=== PATIENT | male | born 1960 | race Caucasian/White ===

== ENCOUNTER 2016-06-09 08:22 | Emergency (ER) | payer OTHER ==
[~2016-06-09] VITALS: Ht 172.7 cm; Wt 111.0 kg
[~2016-06-09 08:22] MED LIST: CIPR500T4 PO; FOLI-49 PO; FURO40TA4 PO; LACT20SO12 PO; ONDA4TAB95 PO; OXYC-279 PO; POTA-57 PO; SPIR25TA76 PO; THIA100T56 PO
[2016-06-09 08:25] VITALS: Ht 172.7 cm; Wt 111.0 kg
--- NOTE | 2016-06-09 09:57 | RADRPT ---
PROCEDURE: XR Right Hip. CLINICAL INDICATION: Right hip pain after fall TECHNIQUE: 2 views of the right hip were performed. COMPARISON: None. FINDINGS: There is normal mineralization and alignment. No fracture or osseous lesion is identified. Joint spa emmy are well maintained. There is no evidence of osteophyte erosion. The soft tissues are unremarka ble. IMPRESSION: 1. Unremarkable right hip x-rays series. RPTAT: KK .August Keane MD, MD Date Time Electronically viewed and signed by .August Keane MD, on 06/09/2016 09:56 .B/
--- NOTE | 2016-06-09 09:58 | RADRPT ---
AMENDMENT: 06/09/2016 9:59:06 AM August Keane M.D Correction: Impression should read: 1. No evidence of acute fracture dislocation. 2. 2 mm foreign body in the distal forearm. PROCEDURE: Forearm radiograph series. CLINICAL INDICATION: Right forearm pain after fall TECHNIQUE: AP and lateral views of the right forearm were obtained. COMPARISON: No prior studies are available for comparison. FINDINGS: There is normal mineralization and alignment of the bones of the right forearm. There is no evidenc e of acute fracture or dislocation. Suboptimally visualized joints appear within normal limits. Th ere is a 2 mm foreign body in the shallow subcutaneous tissues on the radial aspect of the distal fo rearm on the volar surface. IMPRESSION: 1. Unremarkable right forearm x-ray series. RPTAT: KK .August Keane MD, Date Time Electronically viewed and signed by .August Keane MD, MD on 06/09/2016 09:59 .B/
--- NOTE | 2016-06-09 09:58 | RADRPT ---
PROCEDURE: XR Humerus. CLINICAL INDICATION: Right humerus pain after fall TECHNIQUE: 2 views of the right humerus were obtained. COMPARISON: No prior studies are available for comparison. FINDINGS: There is normal mineralization and alignment of the bones of the right humerus. There is no evidenc e of acute fracture or dislocation. The partially visualized joints appear grossly unremarkable. T he soft tissues are within normal limits. IMPRESSION: 1. Unremarkable right humerus series. RPTAT: KK .August Keane MD, MD Date Time Electronically viewed and signed by .August Keane MD, on 06/09/2016 09:58 .B/
--- NOTE | 2016-06-09 10:22 | RADRPT ---
PROCEDURE: XR Right Shoulder. CLINICAL INDICATION: Right shoulder pain. TECHNIQUE: Three views. Frontal internal rotation, frontal external rotation, and scapular Y-view . COMPARISON: No prior study is available for comparison. FINDINGS: There is no fracture or dislocation. The soft tissues are normal. Articular surfaces are intact. There is no lytic or blastic lesion. There is no radiopaque foreign body. IMPRESSION: 1. Normal images of the right shoulder. RPTAT: QQ .Carter Arenas MD, MD Date Time Electronically viewed and signed by .Carter Arenas MD, MD on 06/09/2016 10:22 .R/
--- NOTE | 2016-06-09 11:02 | ERD ---
ER Documentation Chief Complaint Date/Time DATE: 06/09/16 TIME: 10:54 Chief Complaint RT ELBOW AND RT SHOULDER PAIN S/P SLIP AND FALL YESTERDAY HPI Patient is a 56 year old male with a history of cirrhossis, hepatitis C, thrombocytopenia presents to the ED with elbow, arm and shoulder pain after sustaining a fall yesterday afternoon. Patient states that he slipped in the rain yesterday at [employer] and landed on his shoulder and right arm and hip. He denies hitting his head, blacking out, losing consciousness. He denies headache or dizziness. He denies pain in his wrist or hand or leg. He states that he has slight tenderness in his right hip but is able to walk without difficulty. He also states that he has pain in his right shoulder and right arm. He denies significant bruising. He denies abdominal pain, nausea, vomiting or diarrhea. He denies any new symptoms regarding his chronic conditions. He has a history of taking oxycodone for his other symptoms. He denies leg pain or swelling. Denies chest pain, sob, cough or difficulty breathing. ROS All systems reviewed and are negative except as per history of present illness. Medications Home Meds Active Scripts Ciprofloxacin Hcl* (Ciprofloxacin Hcl*) 500 Mg Tablet, 500 MG PO BID for 10 Days , #14 TAB Prov:SHARIF KAPLAN MD 05/28/16 Potassium Chloride* (Klor-Con*) 20 Meq Tabsr, 20 MEQ PO DAILY for 28 Days, #30 TAB Prov:SHARIF KAPLAN MD 05/28/16 Lactulose* (Cephulac*) 20 Gm/30 Ml Soln, 20 GM PO TID for 28 Days Prov:SHARIF KAPLAN MD 05/28/16 Furosemide (Lasix) 40 Mg Tab, 40 MG PO DAILY, #90 TAB Prov:UMAIR RITTER MD 03/23/16 Oxycodone HCl/Acetaminophen (Percocet 5-325 mg Tablet) 1 Each Tablet, 1 EACH PO Q6 Y for PAIN LEVEL 6-10, #40 TAB Prov:UMAIR RITTER MD 03/23/16 Spironolactone* (Aldactone*) 25 Mg Tablet, 50 MG PO DAILY, #90 TAB Prov:UMAIR RITTER MD 03/23/16 Ondansetron Hcl* (Ondansetron Hcl*) 4 Mg Tablet, 4 MG PO Q6H Y for NAUSEA AND/ OR VOMITING, #60 TAB Prov:UMAIR RITTER MD 03/23/16 Folic Acid* (Folic Acid*) 1 Mg Tablet, 1 MG PO DAILY, #90 TAB Prov:UMAIR RITTER MD 02/11/16 Reported Medications Thiamine* (Vitamin B-1*) 100 Mg Tablet, 100 MG PO DAILY, TAB 03/21/16 Allergies Allergies: Coded Allergies: Penicillins (Verified Allergy, Unknown, 03/21/16) RASH clindamycin (Verified Allergy, Unknown, 03/21/16) Uncoded Allergies: PLATELETS (Adverse Reaction, Unknown, 05/18/16) Patient reports he requires benadryl prior to platelets transfusion due to reaction in the past (swelling of face). PMhx/Soc History of Surgery: Yes Anesthesia Reaction: No Hx Neurological Disorder: No Hx Respiratory Disorders: No Hx Cardiac Disorders: No Hx Psychiatric Problems: No Hx Miscellaneous Medical Probl: Yes (THROMBOCYTOPENIA) Hx Alcohol Use: No (NO ALCOHOL CONSUMPTION FOR A LONG TIME.) Hx Substance Use: No Hx Tobacco Use: No Physical Exam Vitals Physical Exam GENERAL: Well-developed, well-nourished male. Appears in no acute distress. HEAD: Normocephalic, atraumatic. LUNG: Clear to auscultation bilaterally. No rhonchi, wheezing, rales or coarse breath sounds. HEART: Regular rate and rhythm. No murmurs, rubs or gallops. BACK: No midline tenderness. Extremities: Equal pulses bilaterally. No peripheral clubbing, cyanosis or edema. No unilateral leg swelling. NEUROLOGIC: Alert and oriented. Moving all four extremities. 5/5 strength in all extremities. Normal speech. Steady gait. slight tenderness to right shoulder and right elbow. no scaphoid tenderness. no wrist or hand pain. no bruising seen. radial, ulnar and median nerve intact. SKIN: Normal color. Warm and dry. No rashes or lesions. Capillary refill < 2 seconds Procedures/MDM ER COURSE: I kept the patient and/or family informed of laboratory and diagnostic imaging results throughout the emergency room course. EKG, MONITORS, & DIAGNOSTIC IMAGING: [place] [address] Radiology Main Line: [phone] DIAGNOSTIC IMAGING REPORT Patient: JONO HILTON : 1960 Age: 56 Sex: M MR #: [id number] DOS: 06/09/16902 Ordering MD: LASHANDA LAUREN PA-C Location: [facility] Room/Bed: AMENDMENT: 06/09/2016 9:59:06 AM August Keane M.D Correction: Impression should read: 1. No evidence of acute fracture dislocation. 2. 2 mm foreign body in the distal forearm. PROCEDURE: Forearm radiograph series. CLINICAL INDICATION: Right forearm pain after fall TECHNIQUE: AP and lateral views of the right forearm were obtained. COMPARISON: No prior studies are available for comparison. FINDINGS: There is normal mineralization and alignment of the bones of the right forearm. There is no evidence of acute fracture or dislocation. Suboptimally visualized joints appear within normal limits. There is a 2 mm foreign body in the shallow subcutaneous tissues on the radial aspect of the distal forearm on the volar surface. IMPRESSION: 1. Unremarkable right forearm x-ray series. RPTAT: KK .August Keane MD, MD Date Time Electronically viewed and signed by .August Keane MD, MD on 2016 09:59 .B/ CC: LASHANDA LAUREN PA-C [place] [address] Radiology Main Line: [phone] DIAGNOSTIC IMAGING REPORT Patient: JONO HILTON : 1960 Age: 56 Sex: M MR #: [id number] DOS: 06/09/16902 Ordering MD: LASHANDA LAUREN PA-C Location: [facility] Room/Bed: PROCEDURE: XR Humerus. CLINICAL INDICATION: Right humerus pain after fall TECHNIQUE: 2 views of the right humerus were obtained. COMPARISON: No prior studies are available for comparison. FINDINGS: There is normal mineralization and alignment of the bones of the right humerus. There is no evidence of acute fracture or dislocation. The partially visualized joints appear grossly unremarkable. The soft tissues are within normal limits. IMPRESSION: 1. Unremarkable right humerus series. RPTAT: KK .August Keane MD, MD Date Time Electronically viewed and signed by .August Keane MD, MD on 2016 09:58 .B/ CC: LASHANDA LAUREN PA-C [place] [address] Radiology Main Line: [phone] DIAGNOSTIC IMAGING REPORT Patient: JONO HILTON : 1960 Age: 56 Sex: M MR #: [id number] DOS: 06/09/16 0901 Ordering MD: LASHANDA LAUREN PA-C Location: [facility] Room/Bed: PROCEDURE: XR Right Hip. CLINICAL INDICATION: Right hip pain after fall TECHNIQUE: 2 views of the right hip were performed. COMPARISON: None. FINDINGS: There is normal mineralization and alignment. No fracture or osseous lesion is identified. Joint spaces are well maintained. There is no evidence of osteophyte erosion. The soft tissues are unremarkable. IMPRESSION: 1. Unremarkable right hip x-rays series. RPTAT: KK .August Keane MD, MD Date Time Electronically viewed and signed by .August Keane MD, MD on 2016 09:56 .B/ CC: LASHANDA LAUREN PA-C [facility] [address] [place] [address] Radiology Main Line: [phone] DIAGNOSTIC IMAGING REPORT Patient: JONO HILTON : 1960 Age: 56 Sex: M MR #: [id number] DOS: 06/09/16 0901 Ordering MD: LASHANDA LAUREN PA-C Location: [facility] Room/Bed: PROCEDURE: XR Right Shoulder. CLINICAL INDICATION: Right shoulder pain. TECHNIQUE: Three views. Frontal internal rotation, frontal external rotation , and scapular Y-view. COMPARISON: No prior study is available for comparison. FINDINGS: There is no fracture or dislocation. The soft tissues are normal. Articular surfaces are intact. There is no lytic or blastic lesion. There is no radiopaque foreign body. IMPRESSION: 1. Normal images of the right shoulder. RPTAT: QQ .Carter Arenas MD, MD Date Time Electronically viewed and signed by .Carter Arenas MD, MD on 06/09/2016 10:22 .R/ CC: LASHANDA LAUREN PA-C PROCEDURES: Ed sling. Sling assessment: Neurovascularly intact post sling placement with good fit. MEDICAL DECISION MAKING: This is a 56-year-old male who presents with shoulder and arm pain after sustaining a fall. Vital signs were reviewed. Patient is afebrile. Patient is not hypoxic. Patient is not toxic or ill-appearing. Patient likely has muscle contusion from sustaining a fall. Low suspicion for dislocation, fracture, septic joint, compartment syndrome, osteomyelitis, cellulitis, avascular necrosis, neurological injury, vascular injury, tendon laceration. I have low suspicion for hematologic emergency as he does not have any excessive or new bruises. Low suspicion for ACS, AAA, perforated ulcer, bowel obstruction, cholecystitis, choledocholithiasis, cholangitis, pancreatitis, hepatic abscess, appendicitis, diverticulitis, nephrolithiasis, septic stone, obstructed stone. Patient does have a history of thrombocytopenia however he does not have any complaints regarding this and I do not think blood work is needed at this time as there is low suspicion for any platelet disorder emergency, HIT, ITP, TTP, thrombocytopenia. Patient does not have bleeding gums or bruising on his body. DISCHARGE: At this time, patient is stable for discharge and outpatient management with no new complaints during the ER course. Patient has pain medication at home and states that he will be taking that for his symptoms. Does not want pain medication today. Patient will be discharged home with instructions to recheck for new or worsening symptoms such as fever, nausea, weakness, LOC and to follow up with primary care in the next 1-2 days. Patient was advised to return to the ER for any new or worsening symptoms. Plan was discussed and patient and/ or family understands and agrees. Home instructions were given. Departure Diagnosis: Primary Impression: Fall with no significant injury Encounter type: initial encounter Qualified Code: W19.XXXA - Fall with no significant injury, initial encounter Condition: Stable Patient Instructions: Fall Prevention Referrals: NIHARIKA CAMACHO MD (PCP) Additional Instructions: Call your primary care doctor TOMORROW for an appointment during the next 1-2 days.See the doctor sooner or return here if your condition worsens before your appointment time. LASHANDA LAUREN PA-C Jun 09, 2016 11:01 Additional Instructions: Call your primary care doctor TOMORROW for an appointment during the next 1-2 days.See the doctor sooner or return here if your condition worsens before your appointment time. LASHANDA LAUREN PA-C Jun 09, 2016 11:01
== END 2016-06-09 11:27 | disposition home or self-care (01) ==
LOC: FTE 08:22
DX: S59.901A Unspecified injury of right elbow, initial encounter (principal); S49.91XA Unspecified injury of right shoulder and upper arm, initial encounter; S59.911A Unspecified injury of right forearm, initial encounter; S79.911A Unspecified injury of right hip, initial encounter; W01.0XXA Fall on same level from slipping, tripping and stumbling without subsequent striking against object, initial encounter; Y92.9 Unspecified place or not applicable
CPT/HCPCS: 73030; 73060; 73090; 73510; Z7502

== ENCOUNTER 2016-06-15 12:57 | Emergency (ER) | payer OTHER ==
[~2016-06-15] VITALS: Ht 170.2 cm; Wt 107.0 kg
[2016-06-15 13:00] VITALS: Ht 170.2 cm; Wt 107.0 kg
[2016-06-15] MEDS ORDERED: FAMOTIDINE 20 MG INJ IV STA (15:56)
[2016-06-15] MEDS ORDERED: LIDOCAINE/MYLANTA 40 ML BTL PO STA (15:56)
[2016-06-15] MEDS ORDERED: ONDANSETRON 4 MG INJ IV STA (15:56)
[2016-06-15 16:17] LABS: HEMATOCRIT 34.3 % (42.0-52.0); HEMOGLOBIN 11.5 g/dl (14.0-18.0); MEAN CORPUSCULAR HGB CONC 33.6 g/dl (32.0-37.0); MEAN CORPUSCULAR VOLUME 95.2 fl (82.0-101.0); MEAN PLATELET VOLUME 8.3 fl (7.4-10.4); PLATELET COUNT 97 10^3/UL (140-440); RED CELL DISTRIBUTION WIDTH 16.5 % (11.5-14.5); UNCORRECTED WBC 5.9 10^3/ul (4.8-10.8); WHITE BLOOD COUNT 5.9 10^3/ul (4.8-10.8)
[2016-06-15] MEDS ORDERED: LACT10SO36 PO (16:22)
[2016-06-15 16:26] LABS: ALBUMIN 3.2 g/dl (3.3-4.9)
[2016-06-15 16:27] LABS: CHLORIDE 97 mmol/L (97-110); CONDITION 1; LH ANALYZER COMMENTS 1; POTASSIUM 4.3 mmol/L (3.5-5.1); SODIUM 134 mmol/L (135-144); SUSPECT 1
[2016-06-15 16:29] LABS: ALBUMIN/GLOBULIN RATIO 0.72; ALKALINE PHOSPHATASE 237 IU/L (42-121); ANION GAP 12 (8-16); ASPARTATE AMINO TRANSFERASE 62 IU/L (15-46); BILIRUBIN,INDIRECT 2.1 mg/dl (0-1.1); BILIRUBIN,TOTAL 2.1 mg/dl (0.2-1.3); BLOOD UREA NITROGEN 7 mg/dl (7-20); CARBON DIOXIDE 29 mmol/L (21-31); CREATININE 0.77 mg/dl (0.61-1.24); TOTAL PROTEIN 7.6 g/dl (6.1-8.1)
[2016-06-15 16:30] LABS: ALANINE AMINOTRANSFERASE 34 IU/L (13-69); CALCIUM 8.4 mg/dl (8.4-10.2); GLUCOSE 101 mg/dl (70-220)
[2016-06-15 16:44] LABS: TROPONIN-I < 0.012 ng/ml (0.00-0.12)
[2016-06-15] MEDS ORDERED: SOD CHLORIDE 0.9% 1,000 ML IV STA (16:55)
[2016-06-15 17:05] LABS: LYMPHOCYTES # 0.9 10^3/ul (0.8-2.9); MONOCYTE # 0.5 10^3/ul (0.3-0.9); NEUTROPHIL # 4.5 10^3/ul (1.6-7.5)
--- NOTE | 2016-06-15 17:19 | RADRPT ---
PROCEDURE: XR Abdomen. CLINICAL INDICATION: Abdomen pain. TECHNIQUE: AP supine abdomen x-ray. COMPARISON: CT scan of the abdomen and pelvis dated 05/20/2016. FINDINGS: The bowel gas pattern is normal with no evidence of obstruction. Gallstones are present in the right upper quadrant as seen on prior CT scan. There are no abnormal calcifications overlying the urinary tracts. The osseus structures are unremarkable. IMPRESSION: 1. No evidence of obstruction. 2. Gallstones in the right upper quadrant. 3. Otherwise unremarkable study. RPTAT: QQ .Carter Arenas MD, Date Time Electronically viewed and signed by .Carter Arenas MD, on 06/15/2016 17:19 .R/
[2016-06-15] MEDS ORDERED: morphine 4 MG/ML VIAL IV STA (17:31)
[2016-06-15 18:11] LABS: ADD UMIC NO; URINE BILIRUBIN (Dip) 1+ (NEGATIVE); URINE BLOOD (Dip) NEGATIVE (NEGATIVE); URINE COLOR YELLOW (YELLOW); URINE GLUCOSE (Dip) NEGATIVE (NEGATIVE); URINE KETONES (Dip) NEGATIVE (NEGATIVE); URINE LEUKOCYTE ESTERASE (Dip) NEGATIVE (NEGATIVE); URINE NITRITE (Dip) NEGATIVE (NEGATIVE); URINE TOTAL PROTEIN (Dip) NEGATIVE (NEGATIVE); URINE UROBILINOGEN (Dip) 0.2 E.U./dL (0.1-1.0)
[2016-06-15 18:17] LABS: ICTOTEST POSITIVE (NEGATIVE)
--- NOTE | 2016-06-15 18:28 | ERD ---
ER Documentation Chief Complaint Date/Time DATE: 06/15/16 TIME: 18:25 Chief Complaint abd pain x 2 weeks . recatal bleeding x 3 days HPI This is a 56-year-old male who presents to the emergency room for evaluation of abdominal pain for the past 2 weeks. 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 He states that he has had pain for 2 weeks and did note some bright red blood when he went to the bathroom today. He denies any active bleeding at this time. He localizes pain all over his abdomen and states that he has been taking [place] with no relief. ROS All systems reviewed and are negative except as per history of present illness. Medications Home Meds Active Scripts Potassium Chloride* (Klor-Con*) 20 Meq Tabsr, 20 MEQ PO DAILY for 28 Days, #30 TAB Prov:SHARIF KAPLAN MD 05/28/16 Furosemide (Lasix) 40 Mg Tab, 40 MG PO DAILY, #90 TAB Prov:UMAIR RITTER MD 03/23/16 Oxycodone HCl/Acetaminophen (Percocet 5-325 mg Tablet) 1 Each Tablet, 1 EACH PO Q6 Y for PAIN LEVEL 6-10, #40 TAB Prov:UMAIR RITTER MD 03/23/16 Spironolactone* (Aldactone*) 25 Mg Tablet, 50 MG PO DAILY, #90 TAB Prov:UMAIR RITTER MD 03/23/16 Ondansetron Hcl* (Ondansetron Hcl*) 4 Mg Tablet, 4 MG PO Q6H Y for NAUSEA AND/ OR VOMITING, #60 TAB Prov:UMAIR RITTER MD 03/23/16 Folic Acid* (Folic Acid*) 1 Mg Tablet, 1 MG PO DAILY, #90 TAB Prov:UMAIR RITTER MD 02/11/16 Reported Medications Lactulose (Generlac) 10 Gm/15 Ml Solution, 30 ML PO TID 06/15/16 Thiamine* (Vitamin B-1*) 100 Mg Tablet, 100 MG PO DAILY, TAB 03/21/16 Discontinued Scripts Ciprofloxacin Hcl* (Ciprofloxacin Hcl*) 500 Mg Tablet, 500 MG PO BID for 10 Days , #14 TAB Prov:SHARIF KAPLAN MD 05/28/16 Lactulose* (Cephulac*) 20 Gm/30 Ml Soln, 20 GM PO TID for 28 Days Prov:SHARIF KAPLAN MD 05/28/16 Allergies Allergies: Coded Allergies: Penicillins (Verified Allergy, Unknown, 06/15/16) RASH clindamycin (Verified Allergy, Unknown, 06/15/16) Uncoded Allergies: PLATELETS (Adverse Reaction, Unknown, 05/18/16) Patient reports he requires benadryl prior to platelets transfusion due to reaction in the past (swelling of face). PMhx/Soc History of Surgery: No Anesthesia Reaction: No Hx Neurological Disorder: No Hx Respiratory Disorders: No Hx Cardiac Disorders: No Hx Psychiatric Problems: No Hx Miscellaneous Medical Probl: No Hx Alcohol Use: No Hx Substance Use: No Hx Tobacco Use: No Smoking Status: Never smoker Physical Exam Vitals Vital Signs Date Time Temp Pulse Resp B/P Pulse Ox O2 Delivery O2 Flow Rate FiO2 06/15/16 17:49 98.1 79 18 159/83 98 Room Air 06/15/16 13:00 98.1 84 18 154/80 98 Physical Exam INITIAL VITAL SIGNS: Reviewed by me GENERAL: The patient is well developed and appropriate for usual state of health in no apparent distress HEENT: Pupils equal, round, and reactive to light. EOMI. There is no scleral icterus. NECK: C-spine is soft and supple, there is no meningismus. There is no cervical lymphadenopathy. LUNGS: Clear to auscultation bilaterally. There are no rales, wheezes or rhonchi. HEART: Regular rate and rhythm, no murmurs, clicks, rubs or gallops. ABDOMEN: Epigastric tenderness to palpation, negative Griffin sign no CVAT,, non- distended. There are bowel sounds in all four quadrants. No rebound or guarding. EXTREMITIES: There is no peripheral cyanosis or edema. No focal swelling or erythema. NEUROLOGICAL: The patient moves all four extremities with 5/5 strength. Cranial nerves II - XII are intact. Normal gait. Alert and oriented SKIN: There is no apparent rash or petechiae. HEME/LYMPHATIC: There is no evidence of excessive bruising or lymphedema. PSYCHIATRIC: The patient does not appear anxious or depressed. Result Diagram: 06/15/16 1554 06/15/16 1554 Results 24 hrs Laboratory Tests Test 06/15/16 15:54 06/15/16 17:50 Alanine Aminotransferase (ALT/SGPT) 34IU/L Albumin 3.2g/dl Albumin/Globulin Ratio 0.72 Alkaline Phosphatase 237IU/L Anion Gap 12 Aspartate Amino Transf (AST/SGOT) 62IU/L Basophils # 10^3/ul Basophils % % Blood Morphology Comment Blood Urea Nitrogen 7mg/dl Calcium Level 8.4mg/dl Carbon Dioxide Level 29mmol/L Chloride Level 97mmol/L Creatinine 0.77mg/dl Direct Bilirubin 0.00mg/dl Eosinophils # 10^3/ul Eosinophils % % Globulin 4.40g/dl Glucose Level 101mg/dl Hematocrit 34.3% Hemoglobin 11.5g/dl Indirect Bilirubin 2.1mg/dl Lipase 50U/L Lymphocytes # 0.910^3/ul Lymphocytes % 15.0% Mean Corpuscular Hemoglobin 32.0pg Mean Corpuscular Hemoglobin Concent 33.6g/dl Mean Corpuscular Volume 95.2fl Mean Platelet Volume 8.3fl Monocytes # 0.510^3/ul Monocytes % 8.0% Neutrophils # 4.510^3/ul Neutrophils % 77.0% Nucleated Red Blood Cells # 10^3/ul Nucleated Red Blood Cells % /100WBC Platelet Count 9710^3/UL Potassium Level 4.3mmol/L Red Blood Count 3.6010^6/ul Red Cell Distribution Width 16.5% Sodium Level 134mmol/L Total Bilirubin 2.1mg/dl Total Protein 7.6g/dl Troponin I < 0.012ng/ml White Blood Count 5.910^3/ul Urine Bilirubin 1+ Urine Clarity CLEAR Urine Color YELLOW Urine Glucose NEGATIVE% Urine Hemoglobin NEGATIVE Urine Ictotest POSITIVE Urine Ketones NEGATIVE Urine Leukocyte Esterase NEGATIVE Urine Nitrite NEGATIVE Urine Specific [place] 1.015 Urine Total Protein NEGATIVE Urine Urobilinogen 0.2 E.U./dL Urine pH 6.0 Current Medications Medications (Trade) Dose Ordered Sig/Ryan Route PRN Reason Start Time Stop Time Status Last Admin Dose Admin Ondansetron HCl (Zofran Inj) 4 mg ONCE STAT IV 06/15/16 15:56 06/15/16 15:57 DC 06/15/16 16:02 Famotidine (Pepcid Iv) 20 mg ONCE STAT IV 06/15/16 15:56 06/15/16 15:57 DC 06/15/16 16:02 Miscellaneous Medication 40 ml 40 ml ONCE STAT PO 06/15/16 15:56 06/15/16 15:57 DC 06/15/16 16:02 Sodium Chloride (NS) 1,000 ml @ 1,000 mls/hr Q1H STAT IV 06/15/16 16:55 06/15/16 17:54 DC 06/15/16 17:04 Morphine Sulfate (morphine) 4 mg ONCE STAT IV 06/15/16 17:31 06/15/16 17:32 DC 06/15/16 17:45 Procedures/MDM X-ray Abdomen 1V Interpreted by me: Free Air: [None] Bowel Gas: [Nonspecific] Soft Tissue: [Normal] This 56-year-old male presents to the ER for evaluation of abdominal pain. I did obtain lab work which shows mild increase in his bilirubin. Patient does have gallstones and was told by Surgeon he is not a candidate for gallbladder removal. This patient does not have a leukocytosis, he is afebrile, my suspicion for SBP is low at this time as this patient does have a fever and no leukocytosis. This patient was given morphine with moderate control of his pain. He will be discharged home with a prescription for Percocet. He was advised to follow-up with his primary care physician. This patient is hemodynamically stable at this time. He did recently undergo an EGD and colonoscopy and was told that he has no active bleeding. Differential diagnoses entertained was broad with potential high acuity. Patient has been evaluated for appendicitis, cholecystitis, and other high risk medical and surgical causes of abdominal pain. Ultimately the patient's evaluation is nondiagnostic. Based on the patient's lack of risk factors, as well as the patient's clinical, laboratory, and imaging data, the patient appears to be low risk for these high risk causes of abdominal pain. Departure Diagnosis: Primary Impression: Abdominal pain Additional Impression: Normocytic anemia Condition: Stable USAMA WATSON DO Jun 15, 2016 18:28
[2016-06-15] MEDS ORDERED: OXYC-279 PO (18:29)
[2016-06-15 18:42] VITALS: BP 144/83; PULSE 74; RESP 18; TEMP 98.1
== END 2016-06-15 18:52 | disposition home or self-care (01) ==
LOC: E/R 12:57
DX: R10.13 Epigastric pain (principal); D64.9 Anemia, unspecified
CPT/HCPCS: 74000; 80053; 81003; 83690; 84484; 85025; J2270; J2405; J7030; Z7610; 36415; 96374; 96375

== ENCOUNTER 2016-07-02 17:13 | Emergency (ER) | payer OTHER ==
[~2016-07-02] VITALS: Wt 108.0 kg
[~2016-07-02 17:13] MED LIST changes: -CIPR500T4 PO; +LACT10SO36 PO; -LACT20SO12 PO; +SPIR25TA PO; -SPIR25TA76 PO
--- NOTE | 2016-07-02 22:33 | ERA ---
ER Documentation Chief Complaint Date/Time DATE: 07/02/16 TIME: 22:32 Chief Complaint Abdominal pain HPI The patient is a 56-year-old male, presenting to the ER because of increased abdominal distention, chronic right inguinal hernia pain, 5/10, worse with abdominal distention. He also complains of blood-tinged emesis intermittently for the last couple days. He had abdominal paracentesis about a month ago. He denies fever, chills, neck pain, dysuria, diarrhea, constipation. He used to drink until a year ago, denies smoking. He complains of intermittent discharge from the perianal fistula for more than 6 months Past medical history: Cirrhosis, hemorrhoids, history of ascites, hypertension, anemia, hepatitis C, right inguinal hernia, thrombocytopenia Past surgical history: History of perianal fistula repair, abdominal paracentesis ROS All systems reviewed and are negative except as per history of present illness. Medications Home Meds Active Scripts Oxycodone HCl/Acetaminophen (Percocet 5-325 mg Tablet) 1 Each Tablet, 1 EACH PO Q8, #7 TAB Prov:USAMA WATSON DO 06/15/16 Potassium Chloride* (Klor-Con*) 20 Meq Tabsr, 20 MEQ PO DAILY for 28 Days, #30 TAB Prov:SHARIF KAPLAN MD 05/28/16 Furosemide (Lasix) 40 Mg Tab, 40 MG PO DAILY, #90 TAB Prov:UMAIR RITTER MD 03/23/16 Oxycodone HCl/Acetaminophen (Percocet 5-325 mg Tablet) 1 Each Tablet, 1 EACH PO Q6 Y for PAIN LEVEL 6-10, #40 TAB Prov:UMAIR RITTER MD 03/23/16 Spironolactone* (Aldactone*) 25 Mg Tablet, 50 MG PO DAILY, #90 TAB Prov:UMAIR RITTER MD 03/23/16 Ondansetron Hcl* (Ondansetron Hcl*) 4 Mg Tablet, 4 MG PO Q6H Y for NAUSEA AND/ OR VOMITING, #60 TAB Prov:UMAIR RITTER MD 03/23/16 Folic Acid* (Folic Acid*) 1 Mg Tablet, 1 MG PO DAILY, #90 TAB Prov:UMAIR RITTER MD 02/11/16 Reported Medications Lactulose (Generlac) 10 Gm/15 Ml Solution, 30 ML PO TID 06/15/16 Thiamine* (Vitamin B-1*) 100 Mg Tablet, 100 MG PO DAILY, TAB 03/21/16 Allergies Allergies: Coded Allergies: Penicillins (Verified Allergy, Unknown, 06/15/16) RASH clindamycin (Verified Allergy, Unknown, 06/15/16) Uncoded Allergies: PLATELETS (Adverse Reaction, Unknown, 05/18/16) Patient reports he requires benadryl prior to platelets transfusion due to reaction in the past (swelling of face). PMhx/Soc History of Surgery: Yes (paracentesis 2016) Anesthesia Reaction: No Hx Neurological Disorder: No Hx Respiratory Disorders: No Hx Cardiac Disorders: No Hx Psychiatric Problems: No Hx Miscellaneous Medical Probl: Yes (hemorrhoids,liver cirrhosis, inguinal hernia) Hx Alcohol Use: Yes (Hx ETOH abuse, sober X1 year) Hx Substance Use: No Hx Tobacco Use: No Smoking Status: Never smoker Physical Exam Vitals Vital Signs Date Time Temp Pulse Resp B/P Pulse Ox O2 Delivery O2 Flow Rate FiO2 07/02/16 17:35 98.8 81 21 148/81 99 Physical Exam Const: No acute distress. Head: Atraumatic. Eyes: Normal Conjunctiva. ENT: Normal External Ears, Nose and Mouth. Neck: Full range of motion. No meningismus. Resp: Clear to auscultation bilaterally. Cardio: Regular rate and rhythm, no murmurs. Abd: Soft, ascites, normal bowel sounds, vague discomfort, right inguinal hernia, no scrotal tenderness Skin: No petechiae or rashes. Back: No midline or flank tenderness. Ext: No cyanosis, or edema. Neur: Awake and alert. No focal deficit Psych: Normal Mood and Affect. Result Diagram: 07/02/16 2300 07/02/16 2300 Results 24 hrs Laboratory Tests Test 07/02/16 23:00 Alanine Aminotransferase (ALT/SGPT) 30IU/L Albumin 3.0g/dl Albumin/Globulin Ratio 0.71 Alkaline Phosphatase 228IU/L Anion Gap 16 Aspartate Amino Transf (AST/SGOT) 48IU/L Basophils # 0.010^3/ul Basophils % 0.6% Blood Morphology Comment Blood Urea Nitrogen 9mg/dl Calcium Level 8.2mg/dl Carbon Dioxide Level 26mmol/L Chloride Level 98mmol/L Creatinine 0.59mg/dl Direct Bilirubin 0.30mg/dl Eosinophils # 0.010^3/ul Eosinophils % 1.0% Globulin 4.20g/dl Glucose Level 103mg/dl Hematocrit 34.6% Hemoglobin 11.8g/dl Indirect Bilirubin 2.4mg/dl Lipase 53U/L Lymphocytes # 0.810^3/ul Lymphocytes % 18.8% Mean Corpuscular Hemoglobin 32.5pg Mean Corpuscular Hemoglobin Concent 34.0g/dl Mean Corpuscular Volume 95.7fl Mean Platelet Volume 8.4fl Monocytes # 0.310^3/ul Monocytes % 6.5% Neutrophils # 3.110^3/ul Neutrophils % 73.1% Nucleated Red Blood Cells # 0.010^3/ul Nucleated Red Blood Cells % 0.0/100WBC Platelet Count 7210^3/UL Potassium Level 3.7mmol/L Red Blood Count 3.6210^6/ul Red Cell Distribution Width 17.4% Sodium Level 136mmol/L Total Bilirubin 2.7mg/dl Total Protein 7.2g/dl White Blood Count 4.210^3/ul Current Medications Medications (Trade) Dose Ordered Sig/Ryan Route PRN Reason Start Time Stop Time Status Last Admin Dose Admin Morphine Sulfate (morphine) 2 mg ONCE ONCE IV 07/03/16 00:00 07/03/16 00:01 DC Ondansetron HCl (Zofran Inj) 4 mg ONCE STAT IV 07/02/16 23:39 07/02/16 23:40 DC Procedures/MDM MEDICAL MAKING DECISION: The patient is a 56-year-old male, presenting to the ER because of recurrent ascites. He was treated with morphine 2 mg IV for pain , Zofran 4 mg IV for nausea with good response. The differential diagnoses considered include but are not limited to SBP, incarcerated/strangulated right inguinal hernia, cholelithiasis, cholecystitis, cystitis, pancreatitis, hepatitis, gastritis, peptic ulcer disease, gastric ulcer, appendicitis, diverticulitis, cholangitis, choledocholithiasis, partial small bowel obstruction. Departure Diagnosis: Primary Impression: Ascites Additional Impressions: Right inguinal hernia Pancytopenia Condition: Good Comments He was advised to return in the morning for abdominocentesis by radiology JES MACK MD Jul 02, 2016 22:33
[2016-07-02] MEDS ORDERED: ONDANSETRON 4 MG INJ IV STA (23:39)
[2016-07-02 23:48] LABS: BASOPHILS % 0.6 % (0.0-2.0); HEMATOCRIT 34.6 % (42.0-52.0); HEMOGLOBIN 11.8 g/dl (14.0-18.0); LYMPHOCYTES # 0.8 10^3/ul (0.8-2.9); LYMPHOCYTES % 18.8 % (15.0-51.0); MEAN CORPUSCULAR HEMOGLOBIN 32.5 pg (29.0-33.0); MEAN CORPUSCULAR VOLUME 95.7 fl (82.0-101.0); MEAN PLATELET VOLUME 8.4 fl (7.4-10.4); MONOCYTE # 0.3 10^3/ul (0.3-0.9); MONOCYTES % 6.5 % (0.0-11.0); NEUTROPHIL # 3.1 10^3/ul (1.6-7.5); NEUTROPHILS % 73.1 % (39.0-77.0); PLATELET COUNT 72 10^3/UL (140-440); RED BLOOD COUNT 3.62 10^6/ul (4.70-6.10); RED CELL DISTRIBUTION WIDTH 17.4 % (11.5-14.5); UNCORRECTED WBC 4.2 10^3/ul (4.8-10.8); WHITE BLOOD COUNT 4.2 10^3/ul (4.8-10.8)
[2016-07-02 23:49] LABS: CONDITION 1; LH ANALYZER COMMENTS 1
[2016-07-02 23:56] LABS: POTASSIUM 3.7 mmol/L (3.5-5.1)
[2016-07-02 23:58] LABS: ALBUMIN/GLOBULIN RATIO 0.71; BILIRUBIN,DIRECT 0.3 mg/dl (0.00-0.20); BILIRUBIN,INDIRECT 2.4 mg/dl (0-1.1); BILIRUBIN,TOTAL 2.7 mg/dl (0.2-1.3); CREATININE 0.59 mg/dl (0.61-1.24); TOTAL PROTEIN 7.2 g/dl (6.1-8.1)
[2016-07-02 23:59] LABS: CALCIUM 8.2 mg/dl (8.4-10.2)
[2016-07-03] MEDS ORDERED: morphine 2 MG INJ IV ONE
[2016-07-03 01:30] VITALS: BP 139/72; PULSE 68; RESP 18; TEMP 97.5
== END 2016-07-03 01:30 | disposition home or self-care (01) ==
LOC: E/R 17:13
DX: R18.8 Other ascites (principal); R40.2252 Coma scale, best verbal response, oriented, at arrival to emergency department; K40.90 Unilateral inguinal hernia, without obstruction or gangrene, not specified as recurrent; D61.818 Other pancytopenia; I10 Essential (primary) hypertension; R40.2362 Coma scale, best motor response, obeys commands, at arrival to emergency department; R40.2142 Coma scale, eyes open, spontaneous, at arrival to emergency department
CPT/HCPCS: 36415; 80053; 83690; 85025; 96374; 96375; J2270; J2405; Z7502

== ENCOUNTER 2016-07-03 09:57 | Emergency (ER) | payer OTHER ==
[~2016-07-03] VITALS: Ht 172.7 cm; Wt 108.0 kg
[2016-07-03 10:08] VITALS: Ht 172.7 cm; Wt 108.0 kg
--- NOTE | 2016-07-03 11:31 | ERD ---
ER Documentation Chief Complaint Date/Time DATE: 07/03/16 TIME: 11:28 Chief Complaint pt jr lao for paracentesis HPI Patient is a 56-year-old male who returns to the emergency department this morning for paracentesis. He has recurrent ascites from alcoholism. He denies any fever, vomiting, diarrhea, dysuria, hematuria, flank or back pain. He denies any abdominal trauma, chest pain, shortness of breath, congestion, rhinorrhea, sore throat, otalgia, syncope, or any new or worsening symptoms. He was evaluated in the emergency department last night with lab work and told to return this morning for a paracentesis. ROS All systems reviewed and are negative except as per history of present illness. Medications Home Meds Active Scripts Potassium Chloride* (Klor-Con*) 20 Meq Tabsr, 20 MEQ PO DAILY for 28 Days, #30 TAB Prov:SHARIF KAPLAN MD 05/28/16 Furosemide (Lasix) 40 Mg Tab, 40 MG PO DAILY, #90 TAB Prov:UMAIR RITTER MD 03/23/16 Spironolactone* (Aldactone*) 25 Mg Tablet, 50 MG PO DAILY, #90 TAB Prov:UMAIR RITTER MD 03/23/16 Ondansetron Hcl* (Ondansetron Hcl*) 4 Mg Tablet, 4 MG PO Q6H Y for NAUSEA AND/ OR VOMITING, #60 TAB Prov:UMAIR RITTER MD 03/23/16 Folic Acid* (Folic Acid*) 1 Mg Tablet, 1 MG PO DAILY, #90 TAB Prov:UMAIR RITTER MD 02/11/16 Reported Medications Lactulose (Generlac) 10 Gm/15 Ml Solution, 30 ML PO TID 06/15/16 Thiamine* (Vitamin B-1*) 100 Mg Tablet, 100 MG PO DAILY, TAB 03/21/16 Discontinued Scripts Oxycodone HCl/Acetaminophen (Percocet 5-325 mg Tablet) 1 Each Tablet, 1 EACH PO Q8, #7 TAB Prov:USAMA WATSON DO 06/15/16 Oxycodone HCl/Acetaminophen (Percocet 5-325 mg Tablet) 1 Each Tablet, 1 EACH PO Q6 Y for PAIN LEVEL 6-10, #40 TAB Prov:UMAIR RITTER MD 03/23/16 Allergies Allergies: Coded Allergies: Penicillins (Verified Allergy, Unknown, 07/03/16) RASH clindamycin (Verified Allergy, Unknown, 07/03/16) Uncoded Allergies: PLATELETS (Adverse Reaction, Unknown, 05/18/16) Patient reports he requires benadryl prior to platelets transfusion due to reaction in the past (swelling of face). PMhx/Soc History of Surgery: Yes (paracentesis 2016) Anesthesia Reaction: No Hx Neurological Disorder: No Hx Respiratory Disorders: No Hx Cardiac Disorders: No Hx Psychiatric Problems: No Hx Miscellaneous Medical Probl: Yes (hemorrhoids,liver cirrhosis, inguinal hernia) Hx Alcohol Use: Yes (Hx ETOH abuse, sober X1 year) Hx Substance Use: No Hx Tobacco Use: No FmHx Family History: coronary disease Physical Exam Vitals Vital Signs Date Time Temp Pulse Resp B/P Pulse Ox O2 Delivery O2 Flow Rate FiO2 07/03/16 10:08 98.3 77 24 137/77 96 Physical Exam Const: [] Well-developed well-nourished male sitting in a chair in no acute distress Head: Atraumatic normocephalic Eyes: Normal Conjunctiva ENT: Normal External Ears, Nose and Mouth. Neck: Full range of motion..~ No meningismus. Resp: Clear to auscultation bilaterally Cardio: Regular rate and rhythm, no murmurs Abd: Soft, non tender, distended with an aseptic wave, normal bowel sounds, no masses, rebound, or guarding. Skin: No petechiae or rashes, patient has some bruises scattered about Back: No midline or flank tenderness Ext: No cyanosis, or edema Neur: Awake and alert oriented 3 with a GCS of 15 Psych: Normal Mood and Affect Results 24 hrs Laboratory Tests Test 07/03/16 13:32 Activated Partial Thromboplast Time 37.7Sec INR International Normalized Ratio 1.70 Prothrombin Time 20.1Sec Prothrombin Time Ratio 1.6 Current Medications Medications (Trade) Dose Ordered Sig/Ryan Route PRN Reason Start Time Stop Time Status Last Admin Dose Admin Oxycodone/ Acetaminophen (Percocet (5/ 325)) 2 tab ONCE ONCE PO 07/03/16 13:30 07/03/16 13:31 DC 07/03/16 13:15 Ondansetron HCl 4 mg 4 mg ONCE STAT ODT 07/03/16 13:07 07/03/16 13:08 DC 07/03/16 13:13 Albumin Human (Albumin Human 25%) 100 ml @ 100 mls/hr ONCE ONCE IV 07/03/16 16:00 07/03/16 16:59 DC Lidocaine (Xylocaine 1% (Mpf)) 5 ml STK-MED ONCE .ROUTE 07/03/16 16:59 07/03/16 17:00 DC 07/03/16 17:03 Lidocaine/ Epinephrine (Xylocaine 1%/ Epi (Mdv) 20 ml) 20 ml STK-MED ONCE .ROUTE 07/03/16 16:59 07/03/16 17:00 DC 07/03/16 17:02 Procedures/MDM Patient returns for a ultrasound-guided paracentesis of his recurrent ascites secondary to alcoholic cirrhosis. I have had a discussion with both the patient and his daughter about possibly scheduling this routinely as an outpatient for the patient's benefit. The daughter stated she would call his primary care doctor on Tuesday to see about scheduling this. 10: Patient has had approximately 8 L of fluid removed from his abdomen. He states he feels much improved. He is hemodynamically stable. He may follow-up as an outpatient. Departure Diagnosis: Primary Impression: Ascites due to alcoholic cirrhosis Additional Impression: Cirrhosis Hepatic cirrhosis type: alcoholic cirrhosis Ascites presence: with ascites Qualified Code: K70.31 - Alcoholic cirrhosis of liver with ascites Condition: Stable Patient Instructions: Ascites Additional Instructions: Please schedule an appointment with your primary care physician. Your doctor should be able to set up an outpatient paracentesis for you once a month. Return to the emergency department for any fever, increasing pain, vomiting, or any new or worsening symptoms. MARY WINSTON Jul 03, 2016 11:31
[2016-07-03] MEDS ORDERED: ONDANSETRON (ODT) 4 MG TAB ODT STA (13:07)
[2016-07-03] MEDS ORDERED: OXYCODONE/ACETAMINOPHEN (5/325) TAB PO ONE (13:30)
[2016-07-03 14:11] LABS: INR 1.7; PARTIAL THROMBOPLASTIN TIME 37.7 Sec (25.0-35.0); PROTIME 20.1 Sec (12.2-14.2); PT RATIO 1.6
[2016-07-03] MEDS ORDERED: ALBUMIN HUMAN 25% 100 ML IV ONE (16:00)
[2016-07-03] MEDS ORDERED: LIDOCAINE 1%/EPI (MDV) 20 ML INJ ONE (16:59)
[2016-07-03] MEDS ORDERED: LIDOCAINE 1% (MPF) 5 ML VIAL ONE (16:59)
--- NOTE | 2016-07-03 16:59 | RADRPT ---
PROCEDURE: Ultrasound guided paracentesis CLINICAL INDICATION: Ascites TECHNIQUE: The risks benefits and alternatives of the procedure were explained to the patient. In formed written consent was obtained. The patient understood the risks benefits and alternatives and wished to proceed with the procedure. A time out was performed. The overlying skin of the right lower quadrant of the abdomen was prepped and draped in the usual sterile fashion. Approximately 10 cc of lidocaine was injected locally for pain control. Utilizing ultrasound guidance, an 6-[place]ijani p aracentesis catheter was placed into the peritoneal cavity without difficulty. Fluid was drained i nto vacuum bottles. After completion of draining fluid, the catheter was removed and direct pressur e was applied to the puncture site. A compression bandage was then placed at the puncture site. e patient tolerated the procedure well without complication. The fluid was not sent to the lab fo r further analysis. COMPARISON: 05/26/2016 FINDINGS: Surgeon: Rere GARCIA. Preprocedural diagnosis: Ascites. Postprocedural diagnosis: Ascites. Samples removed: 8050 cc of clear yellow fluid was obtained. Complications: None. Estimated blood loss: 0 cc. Condition: Stable and unchanged. IMPRESSION: 1. Successful ultrasound-guided paracentesis. RPTAT: QQ .Albin Jernigan MD, MD Date Time Electronically viewed and signed by .Albin Jernigan MD, on 07/03/2016 16:59 .[place]/
[2016-07-03 17:27] VITALS: BP 130/62; PULSE 70; RESP 18
== END 2016-07-03 17:31 | disposition home or self-care (01) ==
LOC: E/R 09:57 → FTE 17:31
DX: K70.31 Alcoholic cirrhosis of liver with ascites (principal)
CPT/HCPCS: 85610; 85730; P9047; Z7502; Z7610

== ENCOUNTER 2016-07-18 02:43 | Inpatient (IN) | payer OTHER ==
[~2016-07-18] VITALS: Ht 167.6 cm; Wt 103.2 kg
[~2016-07-18 02:43] MED LIST changes: -OXYC-279 PO
[2016-07-18 02:50] VITALS: Ht 167.6 cm; Wt 103.2 kg
[2016-07-18] MEDS ORDERED: morphine 4 MG/ML VIAL IV STA (03:32)
[2016-07-18] MEDS ORDERED: ONDANSETRON 4 MG INJ IV STA ×2 (03:32→08:28)
[2016-07-18] MEDS ORDERED: SOD CHLORIDE 0.9% 1,000 ML IV STA (03:32)
[2016-07-18] MEDS ORDERED: PIPER-TAZO 3.375 GM IV (PMX) 100 ML IVPB STA (03:32)
[2016-07-18] MEDS ORDERED: IBUPROFEN 600 MG TAB PO ONE (04:00)
--- NOTE | 2016-07-18 04:13 | RADRPT ---
PROCEDURE: Chest. CLINICAL INDICATION: Chest pain. TECHNIQUE: Single frontal view of the chest was obtained. COMPARISON: 05/18/2016. FINDINGS: The cardiac silhouette is magnified. The aortic arch is unremarkable. There is a moderate left-shannon ed pleural effusion with underlying atelectasis/consolidation. There is no pneumothorax. IMPRESSION: Moderate left-sided pleural effusion with underlying atelectasis/consolidation, new compared with th e prior study. .Brandon Esposito MD, MD Date Time Electronically viewed and signed by .Brandon Esposito MD, MD on 07/18/2016 04:13 .T/
[2016-07-18 04:17] LABS: ALBUMIN 2.9 g/dl (3.3-4.9); BASOPHILS % 0.4 % (0.0-2.0); EOSINOPHILS % 0.3 % (0.0-7.0); HEMATOCRIT 34.8 % (42.0-52.0); HEMOGLOBIN 11.8 g/dl (14.0-18.0); LYMPHOCYTES % 18.8 % (15.0-51.0); MEAN CORPUSCULAR HEMOGLOBIN 32.1 pg (29.0-33.0); MEAN CORPUSCULAR VOLUME 94.5 fl (82.0-101.0); MEAN PLATELET VOLUME 7.5 fl (7.4-10.4); MONOCYTE # 0.5 10^3/ul (0.3-0.9); MONOCYTES % 9.2 % (0.0-11.0); NEUTROPHILS % 71.3 % (39.0-77.0); PLATELET COUNT 79 10^3/UL (140-440); RED BLOOD COUNT 3.69 10^6/ul (4.70-6.10); RED CELL DISTRIBUTION WIDTH 18.5 % (11.5-14.5); UNCORRECTED WBC 5.6 10^3/ul (4.8-10.8); WHITE BLOOD COUNT 5.6 10^3/ul (4.8-10.8)
[2016-07-18 04:18] LABS: POTASSIUM 3.3 mmol/L (3.5-5.1)
[2016-07-18 04:19] LABS: CREATININE 0.56 mg/dl (0.61-1.24)
[2016-07-18 04:20] LABS: ALBUMIN/GLOBULIN RATIO 0.7; BILIRUBIN,DIRECT 0.4 mg/dl (0.00-0.20); BILIRUBIN,INDIRECT 2.3 mg/dl (0-1.1); BILIRUBIN,TOTAL 2.7 mg/dl (0.2-1.3); INR 1.87; PROTIME 21.7 Sec (12.2-14.2); PT RATIO 1.7
[2016-07-18 04:21] LABS: CALCIUM 7.8 mg/dl (8.4-10.2)
--- NOTE | 2016-07-18 04:29 | RADRPT ---
PROCEDURE: US gallbladder . CLINICAL INDICATION: Abdominal pain. TECHNIQUE: Multiple real-time images were acquired of the patient's abdomen utilizing a high resol ution transducer. COMPARISON: CT abdomen and pelvis dated 05/20/2016. FINDINGS: 14 mm gallstone. Gallbladder wall thickening measures 6 mm, and there is pericholecystic fluid. Th ere is severe ascites, somewhat limiting examination. The common bile duct measures 5 mm in maximal dimension. Pancreas obscured by overlying bowel gas. Right kidney measures 120 mm, otherwise without evident r enal mass, hydronephrosis retained calculus. Liver measures 141 mm, and is nonspecific with heterogeneous echogenicity. IMPRESSION: 1. Gallstone, gallbladder wall thickening and pericholecystic fluid. 2. Findings represent acute cholecystitis in the appropriate clinical setting. 3. Severe ascites. RPTAT: [facility] Physician Nadia Date Time Electronically viewed and signed by Physician Nadia on 07/18/2016 04:29 RS/
[2016-07-18] MEDS ORDERED: DIPHENHYDRAMINE 50 MG INJ IV ONE (04:30)
[2016-07-18 04:32] LABS: TROPONIN-I 0.013 ng/ml (0.00-0.12)
[2016-07-18 04:42] LABS: CONDITION 1; LH ANALYZER COMMENTS 1
--- NOTE | 2016-07-18 04:42 | ERA ---
ER Documentation Chief Complaint Date/Time DATE: 07/18/16 TIME: 04:36 Chief Complaint right sided abd pain x 1 day, hx of cirrhosis and gallstones HPI 56-year-old man presents with severe right upper quadrant abdominal pain worse than previous episodes. He states pain began gradually today. He complains of 2-3 days of melena denies blood per rectum, and states he has had tactile fevers for 2 days. Patient denies vomiting or diarrhea, no chest pain or shortness of breath, no headache or blurry vision. ROS All systems reviewed and are negative except as per history of present illness. Medications Home Meds Active Scripts Potassium Chloride* (Klor-Con*) 20 Meq Tabsr, 20 MEQ PO DAILY for 28 Days, #30 TAB Prov:SHARIF KAPLAN MD 05/28/16 Furosemide (Lasix) 40 Mg Tab, 40 MG PO DAILY, #90 TAB Prov:UMAIR RITTER MD 03/23/16 Spironolactone* (Aldactone*) 25 Mg Tablet, 50 MG PO DAILY, #90 TAB Prov:UMAIR RITTER MD 03/23/16 Ondansetron Hcl* (Ondansetron Hcl*) 4 Mg Tablet, 4 MG PO Q6H Y for NAUSEA AND/ OR VOMITING, #60 TAB Prov:UMAIR RITTER MD 03/23/16 Folic Acid* (Folic Acid*) 1 Mg Tablet, 1 MG PO DAILY, #90 TAB Prov:UMAIR RITTER MD 02/11/16 Reported Medications Lactulose (Generlac) 10 Gm/15 Ml Solution, 30 ML PO TID 06/15/16 Thiamine* (Vitamin B-1*) 100 Mg Tablet, 100 MG PO DAILY, TAB 03/21/16 Allergies Allergies: Coded Allergies: Penicillins (Verified Allergy, Unknown, 07/03/16) RASH clindamycin (Verified Allergy, Unknown, 07/03/16) Uncoded Allergies: PLATELETS (Adverse Reaction, Unknown, 05/18/16) Patient reports he requires benadryl prior to platelets transfusion due to reaction in the past (swelling of face). PMhx/Soc Obesity, alcoholic cirrhosis, ascites, right inguinal hernia, chronic cholelithiasis, previous paracentesis History of Surgery: Yes (paracentesis 2015) Anesthesia Reaction: No Hx Neurological Disorder: No Hx Respiratory Disorders: No Hx Cardiac Disorders: No Hx Psychiatric Problems: No Hx Miscellaneous Medical Probl: Yes (hemorrhoids,liver cirrhosis, inguinal hernia) Hx Alcohol Use: Yes (Hx ETOH abuse, sober X1 year) Hx Substance Use: No Hx Tobacco Use: No Smoking Status: Never smoker FmHx Family History: No diabetes Physical Exam Vitals Vital Signs Date Time Temp Pulse Resp B/P Pulse Ox O2 Delivery O2 Flow Rate FiO2 07/18/16 05:28 95 21 144/79 Room Air 07/18/16 02:50 99.7 89 17 135/81 96 Physical Exam GENERAL: Well-developed, well-nourished, well-hydrated, moderate pain HEENT: Moist mucous membranes, pink conjunctiva, no cervical spine tenderness or step-off deformities, no goiter, no jaundice or icterus, extraocular movements intact without pain. No submandibular induration, and no pharyngeal erythema NEURO: Alert and oriented 3, cranial nerves II through XII intact bilaterally, pupils equal round reactive to light, no focal deficits or facial asymmetry, sensation intact distally Strength 5/5 in upper and lower extremities bilaterally CARDIAC: Regular rate and rhythm, no murmurs rubs or gallops LUNGS: Clear bilaterally no wheezing crackles or stridor ABDOMEN: Soft, protuberant abdomen tender to the right upper quadrant with voluntary guarding, moderate ascites SKIN: Warm and dry to touch, no abrasions, contusions, or hematomas, no lacerations, no ecchymosis, no target lesions, and without ulcers EXTREMITIES: No clubbing cyanosis or edema, calves are bilaterally symmetrical, no Homans sign, no popliteal cord sign. Distal pulses equal and bilateral PSYCH: Normal affect without agitation or irritability Result Diagram: 07/18/16 0345 07/18/16 0345 Results 24 hrs Laboratory Tests Test 07/18/16 03:45 07/18/16 04:00 Alanine Aminotransferase (ALT/SGPT) 35IU/L Albumin 2.9g/dl Albumin/Globulin Ratio 0.70 Alkaline Phosphatase 257IU/L Ammonia 46umol/l Anion Gap 16 Aspartate Amino Transf (AST/SGOT) 75IU/L Basophils # 0.010^3/ul Basophils % 0.4% Blood Morphology Comment Blood Urea Nitrogen 6mg/dl Calcium Level 7.8mg/dl Carbon Dioxide Level 28mmol/L Chloride Level 101mmol/L Creatinine 0.56mg/dl Direct Bilirubin 0.40mg/dl Eosinophils # 0.010^3/ul Eosinophils % 0.3% Globulin 4.10g/dl Glucose Level 95mg/dl Hematocrit 34.8% Hemoglobin 11.8g/dl INR International Normalized Ratio 1.87 Indirect Bilirubin 2.3mg/dl Lipase 171U/L Lymphocytes # 1.010^3/ul Lymphocytes % 18.8% Mean Corpuscular Hemoglobin 32.1pg Mean Corpuscular Hemoglobin Concent 34.0g/dl Mean Corpuscular Volume 94.5fl Mean Platelet Volume 7.5fl Monocytes # 0.510^3/ul Monocytes % 9.2% Neutrophils # 4.010^3/ul Neutrophils % 71.3% Nucleated Red Blood Cells # 0.010^3/ul Nucleated Red Blood Cells % 0.0/100WBC Platelet Count 7910^3/UL Potassium Level 3.3mmol/L Prothrombin Time 21.7Sec Prothrombin Time Ratio 1.7 Red Blood Count 3.6910^6/ul Red Cell Distribution Width 18.5% Sodium Level 142mmol/L Total Bilirubin 2.7mg/dl Total Protein 7.0g/dl Troponin I 0.013ng/ml White Blood Count 5.610^3/ul Urine Bilirubin NEGATIVE Urine Clarity CLEAR Urine Color LT. YELLOW Urine Glucose NEGATIVE% Urine Hemoglobin 1+ Urine Ketones NEGATIVE Urine Leukocyte Esterase NEGATIVE Urine Microscopic RBC Pending Urine Microscopic WBC Pending Urine Nitrite NEGATIVE Urine Specific [place] 1.010 Urine Total Protein NEGATIVE Urine Urobilinogen 0.2 E.U./dL Urine pH 5.5 Current Medications Medications (Trade) Dose Ordered Sig/Ryan Route PRN Reason Start Time Stop Time Status Last Admin Dose Admin Sodium Chloride (NS) 1,000 ml @ 1,000 mls/hr Q1H STAT IV 07/18/16 03:32 07/18/16 04:31 DC 07/18/16 04:00 Morphine Sulfate (morphine) 4 mg ONCE STAT IV 07/18/16 03:32 07/18/16 03:35 DC 07/18/16 04:00 Ondansetron HCl 4 mg 4 mg ONCE STAT IV 07/18/16 03:32 07/18/16 03:35 DC 07/18/16 04:00 Piperacillin Sod/ Tazobactam Sod (Zosyn 3.375gm/ 100 ml (Pmx)) 100 ml @ 200 mls/hr ONCE STAT IVPB 07/18/16 03:32 07/18/16 04:01 DC 07/18/16 04:15 Ibuprofen (Motrin) 600 mg ONCE ONCE PO 07/18/16 04:00 07/18/16 04:01 DC 07/18/16 04:00 Diphenhydramine HCl 25 mg 25 mg ONCE ONCE IV 07/18/16 04:30 07/18/16 04:31 DC 07/18/16 04:25 Potassium Chloride 250 ml @ 62.5 mls/hr ONCE ONCE IVPB 07/18/16 05:00 07/18/16 08:59 Potassium Chloride/Sodium Chloride (KCl/NS) 270 ml @ 67 mls/hr ONCE IV 07/18/16 05:00 07/18/16 09:02 07/18/16 05:15 Hydromorphone HCl (Dilaudid) 1 mg ONCE STAT IV 07/18/16 05:09 07/18/16 05:10 DC 07/18/16 05:15 Procedures/MDM IV line was established patient was placed on manager cardiac rhythm strip revealed a sinus rhythm at about 80 bpm with upright P and T waves. Patient was febrile. Blood culture has been ordered results are pending I will follow- up. EKG performed, read by me: 85 bpm, normal sinus rhythm, normal axis, no acute ST segment changes, narrow QRS complex, with good R-wave progression in precordial leads. One view chest x-ray revealed an elevated left hemidiaphragm, no acute infiltrates, no pneumothorax. I administered 1 L normal saline intravenously, morphine 4 mg IV, Zofran 4 mg IV , Benadryl 25 mg IV, ibuprofen 600 mg p.o., and Zosyn 3.375 g IV. CBC revealed hypokalemia at 3.3, liver function tests were abnormal with elevated total bilirubin and alkaline phosphatase and hyperammonemia 46. Calcium was low at 7.8. Troponin was negative. INR elevated at 1.9 Ultrasound of the gallbladder was performed revealing thickened gallbladder wall and pericholecystic fluid consistent with acute cholecystitis. I administered 40 mEq intravenous potassium supplementation. Last food intake was 10 PM open (7 hours ago). Patient n.p.o. at this time I consulted his general surgeon Dr. Pizarro, and patient will be admitted to his PMD Dr. Kaplan. Departure Diagnosis: Primary Impression: Acute cholecystitis Additional Impressions: Alcohol abuse Inguinal hernia Qualified Code: K40.90 - Unilateral inguinal hernia without obstruction or gangrene, recurrence not specified Cirrhosis Qualified Code: K70.31 - Alcoholic cirrhosis of liver with ascites Hypokalemia Hyperammonemia Condition: EMILY Rivera MD Jul 18, 2016 04:42
[2016-07-18] MEDS ORDERED: POTASSIUM CHLORIDE 250 ML IVPB ONE (05:00)
[2016-07-18] MEDS ORDERED: POTASSIUM CHLORIDE 40 MEQ in SOD CHLORIDE 0.9% 250 ML IV SCH (05:00)
[2016-07-18] MEDS ORDERED: HYDROmorphONE 1 MG/ML SYG IV STA ×4 (05:09→16:59)
[2016-07-18 05:29] LABS: ADD UMIC YES; URINE BILIRUBIN (Dip) NEGATIVE (NEGATIVE); URINE BLOOD (Dip) 1+ (NEGATIVE); URINE COLOR LT. YELLOW (YELLOW); URINE GLUCOSE (Dip) NEGATIVE (NEGATIVE); URINE KETONES (Dip) NEGATIVE (NEGATIVE); URINE LEUKOCYTE ESTERASE (Dip) NEGATIVE (NEGATIVE); URINE NITRITE (Dip) NEGATIVE (NEGATIVE); URINE TOTAL PROTEIN (Dip) NEGATIVE (NEGATIVE); URINE UROBILINOGEN (Dip) 0.2 E.U./dL (0.1-1.0)
[2016-07-18 13:48] VITALS: TEMP 98.2
[2016-07-18 14:03] VITALS: BP 171/78; RESP 17
--- NOTE | 2016-07-18 15:29 | QN ---
Documentation Comment [id number] SHARIF KAPLAN MD Jul 18, 2016 15:29
[2016-07-18 16:00] VITALS: BP 145/85; RESP 18
[2016-07-18] MEDS ORDERED: ACETAMINOPHEN 325 MG TAB PO PRN (16:30)
[2016-07-18] MEDS ORDERED: ONDANSETRON 4 MG TAB PO PRN (16:30)
[2016-07-18] MEDS ORDERED: NACL 0.9% 3 ML SYG IV SCH (16:30)
[2016-07-18] MEDS ORDERED: MAGNESIUM HYDROXIDE 30ML CUP PO PRN (16:30)
--- NOTE | 2016-07-18 16:46 | HP ---
DATE OF ADMISSION: 07/18/2016 HISTORY OF PRESENT ILLNESS: Tonny Tompkins is a 56-year-old male who was previously discharged from this hospital with cirrhosis of the liver, ascites, history of paracentesis, perianal fistula, hypertension, anemia, hepatitis C, thrombocytopenia, right inguinal hernia. The patient presented back with abdominal pain and acute cholecystitis and is being admitted for further management. PAST MEDICAL HISTORY: As mentioned above. Perianal fistula, hypertension. The patient has inguinal hernia, thrombocytopenia, hepatitis C, anemia, hypertension, ascites. ALLERGY HISTORY: PLATELETS, PENICILLIN AND CLINDAMYCIN. SOCIAL HISTORY: Negative. MEDICATION HISTORY: 1. Patient is on folic acid. 2. Furosemide. 3. Lactulose. 4. Zofran. 5. Potassium. 6. Aldactone. 7. Thiamine. REVIEW OF SYSTEMS: HEENT: Unremarkable. RESPIRATORY: Unremarkable. CARDIOVASCULAR: Unremarkable. ABDOMEN: Abdominal pain. EXTREMITIES: Unremarkable except for on and off edema. CENTRAL NERVOUS SYSTEM: Unremarkable. GENITOURINARY: History of inguinal hernia. PHYSICAL EXAMINATION: GENERAL: The patient is awake, alert. VITAL SIGNS: Stable. HEAD: Atraumatic, normocephalic. Pupils equal, reactive to light. NECK: Supple. No JVD. Patient has . LUNGS: Clear. CARDIOVASCULAR: S1, S2 are normal. ABDOMEN: Distended. Bowel sounds positive. The patient has point tenderness diffusely but only palpable on deep palpation noted in the epigastric area. Ascites appreciated. EXTREMITIES: No cyanosis, clubbing. Edema positive. GENITOURINARY: The patient has a right inguinal hernia noted. LABORATORY DATA: Hematocrit 34.8. Potassium 3.3, total bilirubin 2.7. Ammonia 46. Chest x-ray, moderate left-sided pleural effusion with underlying atelectasis, consolidation and new compared with prior study. Ultrasound of gallbladder, gallstone and gallbladder wall thickening and pericholecystic fluid. IMPRESSION: 1. Acute cholecystitis. 2. Ascites. 3. Pleural effusion. 4. Hypokalemia. 5. Anemia. 6. Thrombocytopenia. 7. Cirrhosis. 8. Perianal fistula. 9. Inguinal hernia. PLAN: To obtain surgical consultation, potassium supplementation, gentle IV fluid, pain medication. The patient will benefit from paracentesis and possibly thoracentesis. Orders were done. Dictated By: SHARIF MUNIZ/NTS Conf#: [id number] [facility]#: [id number] MTDD
[2016-07-18 19:45] VITALS: BP 164/79; RESP 18
[2016-07-18] MEDS: D5W-0.45 NACL + KCL 20 MEQ 1,000 ML IV SCH (20:53)
[2016-07-18] MEDS: LEVOFLOXACIN 500 MG TAB PO SCH (20:53)
[2016-07-18 22:01] VITALS: BP 134/82
[2016-07-18] MEDS: ONDANSETRON 4 MG INJ IV PRN (22:04)
[2016-07-18] MEDS: LACTULOSE 30ML CUP PO SCH (22:11)
[2016-07-18] MEDS: HYDROmorphONE 1 MG/ML SYG IV PRN (23:37)
--- NOTE | 2016-07-18 23:59 | CONS ---
Date/Time of Note Date/Time of Note DATE: 07/18/16 TIME: 23:45 Assessment/Plan Assessment/Plan Chief Complaint/Hosp Course Mr. Tonny Tompkins is a 56-year-old male with multiple significant comorbidities. 1. Abdominal pain DDx: Cirrhosis, Hepatic congestion, vs Cholecystitis -GI/Medical optimization -HIDA 2. Right inguinal hernia, asymptomatic. Will need optimization of his cirrhosis and ascites prior to even considering surgical repair because the patient is high risk for surgical comorbidity. 3. Morbid obesity with body mass index of 47. Patient is highly encouraged to optimize his diet and exercise to improve his overall health status. 4. Pancytopenia, probably secondary to liver disease and/or other etiology. We will defer to medical team for further workup and treatment. 5. Hypoalbuminemia is probably multifactorial as well. Continue medical management. 6. Hyperbilirubinemia secondary to liver disease. Defer to GI. 7. Hypertension. Continue diet and medication control and encourage weight optimization. Thank you very much for consulting me in this patient's care. Problems: Consultation Date/Type/Reason Admit Date/Time Jul 18, 2016 at 05:37 Date of Consultation: Jul 18, 2016 Hx of Present Illness TYPE OF CONSULTATION: Surgical REFERRING PHYSICIAN: Alexander Catalan MD CHIEF COMPLAINT: 1. Abdominal pain 2. GBW thickening, possible cholecystitis 3. Right inguinal hernia. 4. Ascites. 5. Liver cirrhosis with hepatitis C. 6. Alcohol abuse history. HISTORY OF PRESENT ILLNESS: Mr. Tonny Tompkins is a 56-year-old male with multiple significant comorbidities, especially alcoholic and hepatitis C cirrhosis, who presented with epigastric and ruq abdominal pain and weakness. Pain is sharp in nature and worse than last episode. Subjective fevers. He reports occasional blood from this area after he had his abscess drained about a year ago by Dr. Sheffield. He denies any nausea or vomiting. He denies any chest pain or shortness of breath. He denies any cough, seizure, visual, or neurologic changes. He denies any dysuria. In ER he is afebrile with normal vitals. No leukocytosis. US identifies GBW thickening and ascites and he is suspected of possible cholecystitis. Surgical consult is obtained for further evaluation and treatment. PAST MEDICAL HISTORY: 1. Alcoholism. 2. Cirrhosis. 3. Hepatitis C. 4. Perirectal abscess. 5. Possible fistula in ano. 6. Gallstones. 7. Morbid obesity with BMI of 47. 8. Gastritis. 9. Arthritis. 10. Ascites. 11. Hypertension. 12. Neutropenia. 13. Pancytopenia. 14. Coagulopathy. 15. Hypobilirubinemia. 16. Abnormal LFTs. 17. Hypoalbuminemia. 18. Significant thrombocytopenia. PAST SURGICAL HISTORY: 1. Paracentesis. 2. Incision and drainage of perirectal abscess. MEDICATIONS: As per JUL. ALLERGIES: 1. PLATELETS. 2. PENICILLIN. 3. CLINDAMYCIN. SOCIAL HISTORY: History of alcoholism; however, reports no further use of it. No recreational drugs or tobacco. FAMILY HISTORY: Noncontributory. REVIEW OF SYSTEMS: A 12-point review of systems negative unless addressed in HPI. Past Surgical History Past Surgical Hx: no surgical history Social History Smoking Status: Former smoker Exam/Review of Systems Vital Signs Vitals Vital Signs Date Time Temp Pulse Resp B/P Pulse Ox O2 Delivery O2 Flow Rate FiO2 07/18/16 19:45 98.1 84 18 164/79 98 07/18/16 16:00 Nasal Cannula 2.0 Exam GENERAL: No acute distress, obese. HEENT: Pupils equal, reactive. No scleral icterus. Mucous membranes are moist. NECK: Supple. Minimal JVD. CHEST/PULMONARY: Normal respiratory effort. No wheezing. CARDIAC: S1, S2 present. ABDOMEN: Soft, obese, nontender. Right inguinal hernia that is reducible. Lower abdominal wall edema and erythema. EXTREMITIES: Minimal edema. VASCULAR: Capillary refill is 2 seconds. NEUROLOGIC: Alert, oriented, moves all 4 extremities grossly. RECTAL: Minimal hemorrhoids. Results Result Diagram: 07/18/16 0345 07/18/16 0345 Results 24 hrs Laboratory Tests Test 07/18/16 03:45 07/18/16 04:00 Alanine Aminotransferase (ALT/SGPT) 35 Albumin 2.9 L Albumin/Globulin Ratio 0.70 Alkaline Phosphatase 257 H Ammonia 46 H Anion Gap 16 Aspartate Amino Transf (AST/SGOT) 75 H Basophils # 0.0 Basophils % 0.4 Blood Morphology Comment Blood Urea Nitrogen 6 L Calcium Level 7.8 L Carbon Dioxide Level 28 Chloride Level 101 Creatinine 0.56 L Direct Bilirubin 0.40 H Eosinophils # 0.0 Eosinophils % 0.3 Globulin 4.10 H Glucose Level 95 Hematocrit 34.8 L Hemoglobin 11.8 L INR International Normalized Ratio 1.87 Indirect Bilirubin 2.3 H Lipase 171 Lymphocytes # 1.0 Lymphocytes % 18.8 Mean Corpuscular Hemoglobin 32.1 Mean Corpuscular Hemoglobin Concent 34.0 Mean Corpuscular Volume 94.5 Mean Platelet Volume 7.5 Monocytes # 0.5 Monocytes % 9.2 Neutrophils # 4.0 Neutrophils % 71.3 Nucleated Red Blood Cells # 0.0 Nucleated Red Blood Cells % 0.0 Platelet Count 79 L Potassium Level 3.3 L Prothrombin Time 21.7 H Prothrombin Time Ratio 1.7 Red Blood Count 3.69 L Red Cell Distribution Width 18.5 H Sodium Level 142 Total Bilirubin 2.7 H Total Protein 7.0 Troponin I 0.013 White Blood Count 5.6 # Urine Bilirubin NEGATIVE Urine Clarity CLEAR Urine Color LT. YELLOW Urine Glucose NEGATIVE Urine Hemoglobin 1+ H Urine Ketones NEGATIVE Urine Leukocyte Esterase NEGATIVE Urine Microscopic RBC 5-10 Urine Microscopic WBC 0-2 Urine Nitrite NEGATIVE Urine Specific [place] 1.010 Urine Total Protein NEGATIVE Urine Urobilinogen 0.2 E.U./dL Urine pH 5.5 Medications Medications Current Medications Hydromorphone HCl (Dilaudid) 0.5 mg Q4H PRN IV PAIN Last administered on 23:37; Admin Dose 0.5 MG; Start 07/18/16 at 15:30 Folic Acid (Folic Acid) 1 mg DAILY PO ; Start 07/19/16 at 09:00 Furosemide (Lasix) 40 mg DAILY PO ; Start 07/19/16 at 09:00 Ondansetron HCl (Zofran Tab) 4 mg Q6H PRN PO NAUSEA AND/OR VOMITING; Start at 16:30 Spironolactone (Aldactone) 50 mg DAILY PO ; Start 07/19/16 at 09:00 Thiamine HCl 100 mg 100 mg DAILY PO ; Start 07/19/16 at 09:00 Potassium Chloride/Dextrose/ Sod Cl (D5-1/2ns + KCl 20 Meq) 1,000 ml @ 20 mls/ hr Q24H IV Last administered on 07/18/16 20:53; Admin Dose 20 MLS/HR; Start at 16:08 Ondansetron HCl (Zofran Inj) 4 mg Q6H PRN IV NAUSEA AND/OR VOMITING Last administered on 07/18/16 22:04; Admin Dose 4 MG; Start 07/18/16 at 16:30 Acetaminophen (Tylenol Tab) 650 mg Q6H PRN PO PAIN LEVEL 1-3 OR FEVER; Start at 16:30 Docusate Sodium (Colace) 100 mg Q12H PRN PO CONSTIPATION; Start 07/18/16 at 16: 30 Magnesium Hydroxide (Milk Of Mag) 30 ml DAILY PRN PO CONSTIPATION; Start at 16:30 Pantoprazole (Protonix Iv) 40 mg DAILY@06 IV ; Start 07/19/16 at 06:00 Lactulose (Enulose) 20 gm Q8 PO Last administered on 07/18/16 22:11; Admin Dose 20 GM; Start 07/18/16 at 22:00 Levofloxacin (Levaquin) 500 mg DAILY PO Last administered on 07/18/16 20:53; Admin Dose 500 MG; Start 07/18/16 at 17:00 Potassium Chloride (Klor-Con 20) 20 meq BID PO ; Start 07/19/16 at 09:00 Influenza Virus Vaccine (Fluzone) 0.5 ml ONCE ONCE IM* ; Start 07/20/16 at 09:00 ; Stop 07/20/16 at 09:01 SHRUTHI VALDES MD Jul 18, 2016 23:58
[2016-07-19] VITALS (9 sets, daily range): BP systolic 107–152; BP diastolic 56–84; PULSE 87–98; RESP 17–18
[2016-07-19] MEDS: HYDROmorphONE 1 MG/ML SYG IV PRN ×4 (04:29→23:44)
[2016-07-19 05:40] LABS: CREATININE 0.67 mg/dl (0.61-1.24)
[2016-07-19 05:41] LABS: ALBUMIN/GLOBULIN RATIO 0.81; BILIRUBIN,DIRECT 1.9 mg/dl (0.00-0.20); BILIRUBIN,INDIRECT 4.2 mg/dl (0-1.1); BILIRUBIN,TOTAL 6.1 mg/dl (0.2-1.3); CALCIUM 8.4 mg/dl (8.4-10.2); TOTAL PROTEIN 6.7 g/dl (6.1-8.1)
[2016-07-19] MEDS: LACTULOSE 30ML CUP PO SCH ×3 (05:41→21:13)
[2016-07-19] MEDS: PANTOPRAZOLE 40 MG INJ IV SCH (05:41)
[2016-07-19 06:36] LABS: BASOPHILS % 0.4 % (0.0-2.0); EOSINOPHILS % 0.3 % (0.0-7.0); HEMATOCRIT 33.9 % (42.0-52.0); HEMOGLOBIN 11.7 g/dl (14.0-18.0); LYMPHOCYTES # 0.6 10^3/ul (0.8-2.9); LYMPHOCYTES % 9.1 % (15.0-51.0); MEAN CORPUSCULAR HEMOGLOBIN 32.7 pg (29.0-33.0); MEAN CORPUSCULAR HGB CONC 34.5 g/dl (32.0-37.0); MEAN CORPUSCULAR VOLUME 94.8 fl (82.0-101.0); MEAN PLATELET VOLUME 8.1 fl (7.4-10.4); MONOCYTE # 0.5 10^3/ul (0.3-0.9); MONOCYTES % 8.2 % (0.0-11.0); NEUTROPHIL # 5.1 10^3/ul (1.6-7.5); PLATELET COUNT 54 10^3/UL (140-440); RED BLOOD COUNT 3.58 10^6/ul (4.70-6.10); RED CELL DISTRIBUTION WIDTH 18.6 % (11.5-14.5); UNCORRECTED WBC 6.3 10^3/ul (4.8-10.8); WHITE BLOOD COUNT 6.3 10^3/ul (4.8-10.8)
[2016-07-19 06:38] LABS: CONDITION 1; LH ANALYZER COMMENTS 1
[2016-07-19] MEDS ORDERED: POTASSIUM CHLORIDE (SR) 20 MEQ TAB PO SCH (09:00)
[2016-07-19] MEDS ORDERED: LIDOCAINE 1% (MPF) 5 ML VIAL ONE (10:02)
[2016-07-19] MEDS: THIAMINE 100 MG TAB PO SCH (10:48)
[2016-07-19] MEDS: FOLIC ACID 1 MG TAB PO SCH (10:48)
[2016-07-19] MEDS: FUROSEMIDE 40 MG TAB PO SCH (10:49)
[2016-07-19] MEDS: LEVOFLOXACIN 500 MG TAB PO SCH (10:49)
[2016-07-19] MEDS: SPIRONOLACTONE 25 MG TAB PO SCH (10:49)
[2016-07-19] MEDS: POTASSIUM CHLORIDE (SR) 20 MEQ TAB PO SCH ×2 (10:49→21:13)
--- NOTE | 2016-07-19 12:57 | RADRPT ---
PROCEDURE: Ultrasound guided paracentesis. CLINICAL INDICATION: Ascites and shortness of breath. COMPARISON: 07/03/2016. TECHNIQUE: The risks, benefits, and alternatives were explained to the patient and/or the patient's family, inc luding but not limited to bleeding, infection, pain, visceral or vascular damage, shock, and . The patient and/or the patient's family understood the risks and the alternatives and wished to pro ceed with the procedure. Informed written consent was obtained. A procedural time out was performed . The patient's name, date of , and procedure to be performed were verified. Utilizing ultrasound guidance, optimal location for entry to the peritoneal cavity was ascertained. The overlying skin was prepped and draped in the usual sterile fashion. Approximately 10 ml of 1% Xylocaine was injected locally for pain control. Using ultrasound guidance, an 8 [place]ian catheter wa s introduced into the peritoneal cavity in the right lower quadrant without difficulty. FINDINGS: Initial images demonstrate ascites. Approximately 5.6 liters of serous fluid was aspirated and sent for laboratory analysis. The patient tolerated the procedure well without complication. IMPRESSION: 1. Successful ultrasound-guided paracentesis. RPTAT: QQ .Carter Arenas MD, MD Date Time Electronically viewed and signed by .Carter Arenas MD, on 07/19/2016 12:57 .R/
--- NOTE | 2016-07-19 13:19 | PN ---
Date/Time of Note Date/Time of Note DATE: 07/19/16 TIME: 13:18 Assessment/Plan Lines/Catheters IV C[facility]ter Type (from [facility]): Peripheral IV [place] in Place (from [facility]): No Assessment/Plan Chief Complaint/Hosp Course Mr. Tonny Tompkins is a 56-year-old male with multiple significant comorbidities. 1. Abdominal pain with worsening hyperbilirubinemia. DDx: Cirrhosis, Hepatic congestion, vs Cholecystitis, Cholelithiasis, Choledocholithiasis -?MRCP vs ERCP per GI -GI/Medical optimization -HIDA 2. Right inguinal hernia, asymptomatic. Will need optimization of his cirrhosis and ascites prior to even considering surgical repair because the patient is high risk for surgical comorbidity. 3. Morbid obesity with body mass index of 47. Patient is highly encouraged to optimize his diet and exercise to improve his overall health status. 4. Pancytopenia, probably secondary to liver disease and/or other etiology. We will defer to medical team for further workup and treatment. 5. Hypoalbuminemia is probably multifactorial as well. Continue medical management. 6. Hyperbilirubinemia secondary to liver disease. Defer to GI. 7. Hypertension. Continue diet and medication control and encourage weight optimization. Thank you very much for consulting me in this patient's care. Problems: Subjective 24 Hr Interval Summary s/p Paracentesis. Abdominal pain. No n/v. No f/c. No cp/sob. No cough. No navarro/dizzy/visual or neuro changes. Exam/Review of Systems Vital Signs Vitals Vital Signs Date Time Temp Pulse Resp B/P Pulse Ox O2 Delivery O2 Flow Rate FiO2 07/19/16 08:04 99.2 93 18 136/71 95 07/19/16 08:00 Nasal Cannula 2.0 Intake and Output 07/18/16 07/18/16 07/19/16 15:00 23:00 07:00 Intake Total 270 ml 140 ml Balance 270 ml 140 ml Exam Free Text/Dictation GENERAL: No acute distress, obese. HEENT: Pupils equal, reactive. Icterus. Mucous membranes are moist. NECK: Supple. Minimal JVD. CHEST/PULMONARY: Normal respiratory effort. No wheezing. CARDIAC: S1, S2 present. ABDOMEN: Soft, obese, min tender. Right inguinal hernia that is reducible. Lower abdominal wall edema and erythema. EXTREMITIES: Minimal edema. VASCULAR: Capillary refill is 2 seconds. NEUROLOGIC: Alert, oriented, moves all 4 extremities grossly. RECTAL: Minimal hemorrhoids. SKIN: Jaundice. Results Result Diagram: 07/19/16 0426 07/19/16 0426 SHRUTHI VALDES MD Jul 19, 2016 13:19
[2016-07-19] MEDS: ONDANSETRON 4 MG INJ IV PRN (13:48)
[2016-07-19 14:11] LABS: FLUID LD 280 U/L; FLUID TYPE PARACENTESIS FLUID
[2016-07-19 14:12] LABS: FLUID TOTAL PROTEIN < 2.0 g/dl
[2016-07-19 14:27] LABS: FLUID TYPE PARACENTHESIS
[2016-07-19 14:28] LABS: FLUID APPEARANCE CLEAR; FLUID LYMPHOCYTES 46 %; FLUID NEUTROPHILS 23 %; FLUID WBC'S 147 /cmm
[2016-07-19 14:29] LABS: FLUID MONOCYTES 31 %
[2016-07-19] MEDS: D5W-0.45 NACL + KCL 20 MEQ 1,000 ML IV SCH ×2 (16:08→20:30)
--- NOTE | 2016-07-19 20:07 | PN ---
Date/Time of Note Date/Time of Note DATE: 07/19/16 TIME: 20:06 Assessment/Plan VTE Prophylaxis VTE Prophylaxis Intervention: other Lines/Catheters IV [facility]ter Type (from [facility]): Peripheral IV Urinary Cath still in place: No Assessment/Plan Chief Complaint/Hosp Course IMPRESSION: 1. Acute cholecystitis. 2. Ascites. 3. Pleural effusion. 4. Hypokalemia. 5. Anemia. 6. Thrombocytopenia. 7. Cirrhosis. 8. Perianal fistula. 9. Inguinal hernia. 10 ABN LFT PLAN GI PER SURGERY Problems: Subjective 24 Hr Interval Summary Subjective hx not possible: other (S/P PARACENTESIS) Respiratory: no complaints Cardiovascular: no complaints Gastrointestinal: no complaints Exam/Review of Systems Vital Signs Vitals Vital Signs Date Time Temp Pulse Resp B/P Pulse Ox O2 Delivery O2 Flow Rate FiO2 07/19/16 13:52 99.6 87 18 117/61 97 Nasal Cannula 2.0 Intake and Output 07/18/16 07/18/16 07/19/16 15:00 23:00 07:00 Intake Total 270 ml 140 ml Balance 270 ml 140 ml Exam Respiratory: clear to auscultation Cardiovascular: regular rate and rhythm Gastrointestinal: ascites (+), soft Extremities: edema (+) Results Result Diagram: 07/19/16 0426 07/19/16 0426 Results 24 hrs Laboratory Tests Test 07/19/16 04:26 07/19/16 09:20 07/19/16 09:30 Alanine Aminotransferase (ALT/SGPT) 33 Albumin 3.0 L Albumin/Globulin Ratio 0.81 Alkaline Phosphatase 227 H Anion Gap 15 Aspartate Amino Transf (AST/SGOT) 64 H Basophils # 0.0 Basophils % 0.4 Blood Morphology Comment Blood Urea Nitrogen 10 Calcium Level 8.4 Carbon Dioxide Level 30 Chloride Level 101 Creatinine 0.67 Direct Bilirubin 1.90 #H Eosinophils # 0.0 Eosinophils % 0.3 Globulin 3.70 H Glucose Level 92 Hematocrit 33.9 L Hemoglobin 11.7 L Indirect Bilirubin 4.2 H Lymphocytes # 0.6 L Lymphocytes % 9.1 L Mean Corpuscular Hemoglobin 32.7 Mean Corpuscular Hemoglobin Concent 34.5 Mean Corpuscular Volume 94.8 Mean Platelet Volume 8.1 Monocytes # 0.5 Monocytes % 8.2 Neutrophils # 5.1 Neutrophils % 82.0 H Nucleated Red Blood Cells # 0.0 Nucleated Red Blood Cells % 0.0 Platelet Count 54 #L Potassium Level 4.0 Red Blood Count 3.58 L Red Cell Distribution Width 18.6 H Sodium Level 142 Total Bilirubin 6.1 #H Total Protein 6.7 White Blood Count 6.3 Body Fluid Lactate Dehydrogenase 280 Body Fluid Total Protein < 2.0 Body Fluid Type PARACENTESIS FLUID PARACENTHESIS Body Fluid Appearance CLEAR Body Fluid Color YELLOW Body Fluid Lymphocytes (%) 46 Body Fluid Monocytes % 31 Body Fluid Neutrophils % 23 Body Fluid RBC Body Fluid Volume 800.0 Body Fluid WBC 147 Medications Medications Current Medications Hydromorphone HCl (Dilaudid) 0.5 mg Q4H PRN IV PAIN Last administered on 14:50; Admin Dose 0.5 MG; Start 07/18/16 at 15:30 Folic Acid (Folic Acid) 1 mg DAILY PO Last administered on 07/19/16 10:48; Admin Dose 1 MG; Start 07/19/16 at 09:00 Furosemide (Lasix) 40 mg DAILY PO Last administered on 07/19/16 10:49; Admin Dose 40 MG; Start 07/19/16 at 09:00 Ondansetron HCl (Zofran Tab) 4 mg Q6H PRN PO NAUSEA AND/OR VOMITING; Start at 16:30 Spironolactone (Aldactone) 50 mg DAILY PO Last administered on 07/19/16 10:49 ; Admin Dose 50 MG; Start 07/19/16 at 09:00 Thiamine HCl 100 mg 100 mg DAILY PO Last administered on 07/19/16 10:48; Admin Dose 100 MG; Start 07/19/16 at 09:00 Potassium Chloride/Dextrose/ Sod Cl (D5-1/2ns + KCl 20 Meq) 1,000 ml @ 20 mls/ hr Q24H IV Last administered on 07/18/16 20:53; Admin Dose 20 MLS/HR; Start at 16:08 Ondansetron HCl (Zofran Inj) 4 mg Q6H PRN IV NAUSEA AND/OR VOMITING Last administered on 07/19/16 13:48; Admin Dose 4 MG; Start 07/18/16 at 16:30 Acetaminophen (Tylenol Tab) 650 mg Q6H PRN PO PAIN LEVEL 1-3 OR FEVER Last administered on 07/19/16 10:49; Admin Dose 650 MG; Start 07/18/16 at 16:30 Docusate Sodium (Colace) 100 mg Q12H PRN PO CONSTIPATION; Start 07/18/16 at 16: 30 Magnesium Hydroxide (Milk Of Mag) 30 ml DAILY PRN PO CONSTIPATION; Start at 16:30 Pantoprazole (Protonix Iv) 40 mg DAILY@06 IV Last administered on 07/19/16 05: 41; Admin Dose 40 MG; Start 07/19/16 at 06:00 Lactulose (Enulose) 20 gm Q8 PO Last administered on 07/19/16 13:44; Admin Dose 20 GM; Start 07/18/16 at 22:00 Levofloxacin (Levaquin) 500 mg DAILY PO Last administered on 07/19/16 10:49; Admin Dose 500 MG; Start 07/18/16 at 17:00 Potassium Chloride (Klor-Con 20) 20 meq BID PO Last administered on 07/19/16 10:49; Admin Dose 20 MEQ; Start 07/19/16 at 09:00 Influenza Virus Vaccine (Fluzone) 0.5 ml ONCE ONCE IM* ; Start 07/20/16 at 09:00 ; Stop 07/20/16 at 09:01 Hydromorphone HCl (Dilaudid) 1 mg Q4H PRN IV PAIN; Start 07/19/16 at 20:00 SHARIF KAPLAN MD Jul 19, 2016 20:07
--- NOTE | 2016-07-19 21:23 | RADRPT ---
PROCEDURE: Nuclear medicine hepatobiliary scan. CLINICAL INDICATION: Right upper quadrant abdomen pain. TECHNIQUE: Following intravenous injection of 8 mCi technetium 99m Choletec, anterior static image s of the abdomen were obtained every 5 minutes for a total of 90 minutes. 2-hour delayed left anter ior oblique, right posterior oblique, left lateral, and right lateral images were also obtained. COMPARISON: Right upper quadrant abdomen ultrasound dated 07/18/2016 which demonstrated a gallston e in the gallbladder, gallbladder wall thickening, and fluid around the gallbladder. FINDINGS: There is normal uptake throughout the liver. Biliary uptake is present 15 minutes. Gallbladder uptake is not present and 90 minutes and not present at 2 hours. Bowel uptake is present at 30 minutes. IMPRESSION: 1. Abnormal study with lack of visualization of the gallbladder. This may indicate acute cholecyst itis. RPTAT: QQ .Carter Arenas MD, Date Time Electronically viewed and signed by .Carter Arenas MD, on 07/19/2016 21:23 .R/
[2016-07-20 02:15] VITALS: BP 145/64
[2016-07-20] MEDS: HYDROmorphONE 1 MG/ML SYG IV PRN ×4 (03:56→19:54)
[2016-07-20 05:15] VITALS: BP 129/70; PULSE 93; RESP 18
[2016-07-20] MEDS: LACTULOSE 30ML CUP PO SCH ×3 (05:34→22:08)
[2016-07-20] MEDS: PANTOPRAZOLE 40 MG INJ IV SCH (05:34)
[2016-07-20 05:54] LABS: ALBUMIN 2.4 g/dl (3.3-4.9)
[2016-07-20 05:55] LABS: POTASSIUM 3.7 mmol/L (3.5-5.1)
[2016-07-20 05:57] LABS: BILIRUBIN,DIRECT 2.5 mg/dl (0.00-0.20); BILIRUBIN,INDIRECT 3.8 mg/dl (0-1.1); BILIRUBIN,TOTAL 6.3 mg/dl (0.2-1.3); CREATININE 0.63 mg/dl (0.61-1.24)
[2016-07-20 05:58] LABS: ALBUMIN/GLOBULIN RATIO 0.66; CALCIUM 8.2 mg/dl (8.4-10.2)
[2016-07-20 08:11] VITALS: BP 135/89; RESP 20
[2016-07-20] MEDS: THIAMINE 100 MG TAB PO SCH (08:56)
[2016-07-20] MEDS: FUROSEMIDE 40 MG TAB PO SCH (08:56)
[2016-07-20] MEDS: POTASSIUM CHLORIDE (SR) 20 MEQ TAB PO SCH ×2 (08:56→19:58)
[2016-07-20] MEDS: SPIRONOLACTONE 25 MG TAB PO SCH (08:56)
[2016-07-20] MEDS: LEVOFLOXACIN 500 MG TAB PO SCH (08:56)
[2016-07-20] MEDS: FOLIC ACID 1 MG TAB PO SCH (08:56)
[2016-07-20] MEDS ORDERED: INFLUENZA VIRUS VACCINE 0.5 ML (DISPENSING) IM* ONE (09:00)
[2016-07-20] MEDS: ONDANSETRON 4 MG INJ IV PRN ×2 (13:42→19:53)
--- NOTE | 2016-07-20 15:35 | RADRPT ---
PROCEDURE: MRCP without contrast. CLINICAL INDICATION: Cholecystitis. TECHNIQUE: Routine MRCP was obtained without the administration of intravenous contrast. COMPARISON: None. FINDINGS: Moderate to large amount of abdominal ascites that is associated with significant central standing w ave artifact. Morphologic changes in the liver, compatible with liver cirrhosis. Spleen is enlarged measuring 13.6 cm in craniocaudal length. IMPRESSION: Nondiagnostic evaluation due to extensive central standing wave artifact related to patient's ascite s. The gallbladder and biliary system are not visualized. Liver cirrhosis with stigmata of portal hypertension including moderate to large abdominopelvic asci sherri and splenomegaly. RPTAT: EE .Saman Sanders MD, MD Date Time Electronically viewed and signed by .Saman Sanders MD, MD on 07/20/2016 15:39 .C/
[2016-07-20] MEDS: D5W-0.45 NACL + KCL 20 MEQ 1,000 ML IV SCH (16:08)
[2016-07-20 20:08] VITALS: BP 131/70; RESP 18
--- NOTE | 2016-07-20 20:48 | PN ---
Date/Time of Note Date/Time of Note DATE: 07/20/16 TIME: 20:47 Assessment/Plan VTE Prophylaxis VTE Prophylaxis Intervention: other Lines/Catheters IV C[facility]ter Type (from [facility]): [place]ine Lock Urinary Cath still in place: No Assessment/Plan Chief Complaint/Hosp Course IMPRESSION: 1. Acute cholecystitis. 2. Ascites. 3. Pleural effusion. 4. Hypokalemia. 5. Anemia. 6. Thrombocytopenia. 7. Cirrhosis. 8. Perianal fistula. 9. Inguinal hernia. 10 ABN LFT PLAN GI PER SURGERY HIDA SEEN Problems: Subjective 24 Hr Interval Summary Respiratory: no complaints Cardiovascular: no complaints Gastrointestinal: no complaints Exam/Review of Systems Vital Signs Vitals Vital Signs Date Time Temp Pulse Resp B/P Pulse Ox O2 Delivery O2 Flow Rate FiO2 07/20/16 20:08 98.7 100 18 131/70 98 07/19/16 20:40 Nasal Cannula 2.0 Intake and Output 07/19/16 07/19/16 07/20/16 15:00 23:00 07:00 Intake Total 270 ml 155 ml Balance 270 ml 155 ml Exam Respiratory: clear to auscultation Cardiovascular: regular rate and rhythm Gastrointestinal: ascites (+), soft Extremities: edema (+) Results Result Diagram: 07/19/16 0426 07/20/16 0430 Results 24 hrs Laboratory Tests Test 07/20/16 04:30 Alanine Aminotransferase (ALT/SGPT) 29 Albumin 2.4 L Albumin/Globulin Ratio 0.66 Alkaline Phosphatase 197 H Anion Gap 13 Aspartate Amino Transf (AST/SGOT) 46 Blood Urea Nitrogen 12 Calcium Level 8.2 L Carbon Dioxide Level 28 Chloride Level 100 Creatinine 0.63 Direct Bilirubin 2.50 H Globulin 3.60 H Glucose Level 80 Indirect Bilirubin 3.8 H Potassium Level 3.7 Sodium Level 137 Total Bilirubin 6.3 H Total Protein 6.0 L Medications Medications Current Medications Hydromorphone HCl (Dilaudid) 0.5 mg Q4H PRN IV PAIN Last administered on 03:56; Admin Dose 0.5 MG; Start 07/18/16 at 15:30 Folic Acid (Folic Acid) 1 mg DAILY PO Last administered on 07/20/16 08:56; Admin Dose 1 MG; Start 07/19/16 at 09:00 Furosemide (Lasix) 40 mg DAILY PO Last administered on 07/20/16 08:56; Admin Dose 40 MG; Start 07/19/16 at 09:00 Ondansetron HCl (Zofran Tab) 4 mg Q6H PRN PO NAUSEA AND/OR VOMITING; Start at 16:30 Spironolactone (Aldactone) 50 mg DAILY PO Last administered on 07/20/16 08:56 ; Admin Dose 50 MG; Start 07/19/16 at 09:00 Thiamine HCl 100 mg 100 mg DAILY PO Last administered on 07/20/16 08:56; Admin Dose 100 MG; Start 07/19/16 at 09:00 Potassium Chloride/Dextrose/ Sod Cl (D5-1/2ns + KCl 20 Meq) 1,000 ml @ 20 mls/ hr Q24H IV Last administered on 07/19/16 20:30; Admin Dose 20 MLS/HR; Start at 16:08 Ondansetron HCl (Zofran Inj) 4 mg Q6H PRN IV NAUSEA AND/OR VOMITING Last administered on 07/20/16 19:53; Admin Dose 4 MG; Start 07/18/16 at 16:30 Acetaminophen (Tylenol Tab) 650 mg Q6H PRN PO PAIN LEVEL 1-3 OR FEVER Last administered on 07/19/16 10:49; Admin Dose 650 MG; Start 07/18/16 at 16:30 Docusate Sodium (Colace) 100 mg Q12H PRN PO CONSTIPATION; Start 07/18/16 at 16: 30 Magnesium Hydroxide (Milk Of Mag) 30 ml DAILY PRN PO CONSTIPATION; Start at 16:30 Pantoprazole (Protonix Iv) 40 mg DAILY@06 IV Last administered on 07/19/16 05: 41; Admin Dose 40 MG; Start 07/19/16 at 06:00 Lactulose (Enulose) 20 gm Q8 PO Last administered on 07/20/16 13:26; Admin Dose 20 GM; Start 07/18/16 at 22:00 Levofloxacin (Levaquin) 500 mg DAILY PO Last administered on 07/20/16 08:56; Admin Dose 500 MG; Start 07/18/16 at 17:00 Potassium Chloride (Klor-Con 20) 20 meq BID PO Last administered on 07/20/16 19:58; Admin Dose 20 MEQ; Start 07/19/16 at 09:00 Hydromorphone HCl (Dilaudid) 1 mg Q4H PRN IV PAIN Last administered on t 19:54; Admin Dose 1 MG; Start 07/19/16 at 20:00 SHARIF KAPLAN MD Jul 20, 2016 20:48
--- NOTE | 2016-07-20 21:30 | PN ---
Date/Time of Note Date/Time of Note DATE: 07/20/16 TIME: 21:28 Assessment/Plan Lines/Catheters IV Catheter Type (from [facility]): Saline Lock Payne in Place (from [facility]): No Assessment/Plan Chief Complaint/Hosp Course Mr. Tonny Tompkins is a 56-year-old male with multiple significant comorbidities. HIDA noted. 1. Abdominal pain with worsening hyperbilirubinemia. DDx: Cirrhosis, Hepatic congestion, vs Cholecystitis, Cholelithiasis, Choledocholithiasis -MRCP useless 2nd artifact. ? ERCP per GI > Dr. Sumner informed. -GI/Medical optimization 2. Right inguinal hernia, asymptomatic. Will need optimization of his cirrhosis and ascites prior to even considering surgical repair because the patient is high risk for surgical comorbidity. 3. Morbid obesity with body mass index of 47. Patient is highly encouraged to optimize his diet and exercise to improve his overall health status. 4. Pancytopenia, probably secondary to liver disease and/or other etiology. We will defer to medical team for further workup and treatment. 5. Hypoalbuminemia is probably multifactorial as well. Continue medical management. 6. Hyperbilirubinemia secondary to liver disease. Defer to GI. 7. Hypertension. Continue diet and medication control and encourage weight optimization. Thank you, Problems: Subjective 24 Hr Interval Summary MRCP unsuccessful. HIDA noted. Abdominal pain. No n/v. No f/c. No cp/sob. No cough. No navarro/dizzy/visual or neuro changes. Exam/Review of Systems Vital Signs Vitals Vital Signs Date Time Temp Pulse Resp B/P Pulse Ox O2 Delivery O2 Flow Rate FiO2 07/20/16 20:08 98.7 100 18 131/70 98 07/19/16 20:40 Nasal Cannula 2.0 Intake and Output 07/19/16 07/19/16 07/20/16 15:00 23:00 07:00 Intake Total 270 ml 155 ml Balance 270 ml 155 ml Exam Free Text/Dictation GENERAL: No acute distress, obese. HEENT: Pupils equal, reactive. Icterus. Mucous membranes are moist. NECK: Supple. Minimal JVD. CHEST/PULMONARY: Normal respiratory effort. No wheezing. CARDIAC: S1, S2 present. ABDOMEN: Soft, obese, min tender. Right inguinal hernia that is reducible. Lower abdominal wall edema and erythema. EXTREMITIES: Minimal edema. VASCULAR: Capillary refill is 2 seconds. NEUROLOGIC: Alert, oriented, moves all 4 extremities grossly. RECTAL: Minimal hemorrhoids. SKIN: Jaundice. Results Result Diagram: 07/19/16 0426 07/20/16 0430 SHRUTHI VALDES MD Jul 20, 2016 21:30
[2016-07-21] MEDS: HYDROmorphONE 1 MG/ML SYG IV PRN ×4 (02:01→20:19)
[2016-07-21] MEDS: LACTULOSE 30ML CUP PO SCH ×3 (05:25→22:36)
[2016-07-21] MEDS: PANTOPRAZOLE 40 MG INJ IV SCH (05:25)
[2016-07-21 08:56] VITALS: BP 132/67; RESP 16
[2016-07-21] MEDS: FOLIC ACID 1 MG TAB PO SCH (09:23)
[2016-07-21] MEDS: THIAMINE 100 MG TAB PO SCH (09:23)
[2016-07-21] MEDS: FUROSEMIDE 40 MG TAB PO SCH (09:23)
[2016-07-21] MEDS: POTASSIUM CHLORIDE (SR) 20 MEQ TAB PO SCH ×2 (09:23→22:31)
[2016-07-21] MEDS: LEVOFLOXACIN 500 MG TAB PO SCH (09:23)
[2016-07-21] MEDS: SPIRONOLACTONE 25 MG TAB PO SCH (09:24)
[2016-07-21] MEDS: D5W-0.45 NACL + KCL 20 MEQ 1,000 ML IV SCH ×2 (13:17→16:08)
--- NOTE | 2016-07-21 18:50 | PN ---
Date/Time of Note Date/Time of Note DATE: 07/21/16 TIME: 18:48 Assessment/Plan VTE Prophylaxis VTE Prophylaxis Intervention: other Lines/Catheters IV C[facility]ter Type (from [facility]): Saline Lock Urinary Cath still in place: No Assessment/Plan Chief Complaint/Hosp Course IMPRESSION: 1. Acute cholecystitis. 2. Ascites. 3. Pleural effusion. 4. Hypokalemia.BETTER 5. Anemia. 6. Thrombocytopenia. 7. Cirrhosis. 8. Perianal fistula. 9. Inguinal hernia. 10 ABN LFT PLAN GI PER SURGERY HIDA SEEN MRI SEEN D/W DR PADILLA Problems: Subjective 24 Hr Interval Summary Respiratory: no complaints Gastrointestinal: No pain Exam/Review of Systems Vital Signs Vitals Vital Signs Date Time Temp Pulse Resp B/P Pulse Ox O2 Delivery O2 Flow Rate FiO2 07/21/16 08:56 98.4 94 16 132/67 95 07/21/16 08:00 Nasal Cannula 2.0 Intake and Output 07/20/16 07/20/16 07/21/16 15:00 23:00 07:00 Intake Total 200 ml 60 ml Output Total 900 ml Balance 200 ml -840 ml Exam Respiratory: clear to auscultation Cardiovascular: regular rate and rhythm Gastrointestinal: ascites (+), bowel sounds (+), distended (+) Extremities: edema (+) Results Result Diagram: 07/19/16 0426 07/20/16 0430 Medications Medications Current Medications Hydromorphone HCl (Dilaudid) 0.5 mg Q4H PRN IV PAIN Last administered on 03:56; Admin Dose 0.5 MG; Start 07/18/16 at 15:30 Folic Acid (Folic Acid) 1 mg DAILY PO Last administered on 07/21/16 09:23; Admin Dose 1 MG; Start 07/19/16 at 09:00 Furosemide (Lasix) 40 mg DAILY PO Last administered on 07/21/16 09:23; Admin Dose 40 MG; Start 07/19/16 at 09:00 Ondansetron HCl (Zofran Tab) 4 mg Q6H PRN PO NAUSEA AND/OR VOMITING; Start at 16:30 Spironolactone (Aldactone) 50 mg DAILY PO Last administered on 07/21/16 09:24 ; Admin Dose 50 MG; Start 07/19/16 at 09:00 Thiamine HCl 100 mg 100 mg DAILY PO Last administered on 07/21/16 09:23; Admin Dose 100 MG; Start 07/19/16 at 09:00 Potassium Chloride/Dextrose/ Sod Cl (D5-1/2ns + KCl 20 Meq) 1,000 ml @ 20 mls/ hr Q24H IV Last administered on 07/21/16 13:17; Admin Dose 20 MLS/HR; Start at 16:08 Ondansetron HCl (Zofran Inj) 4 mg Q6H PRN IV NAUSEA AND/OR VOMITING Last administered on 07/20/16 19:53; Admin Dose 4 MG; Start 07/18/16 at 16:30 Acetaminophen (Tylenol Tab) 650 mg Q6H PRN PO PAIN LEVEL 1-3 OR FEVER Last administered on 07/19/16 10:49; Admin Dose 650 MG; Start 07/18/16 at 16:30 Docusate Sodium (Colace) 100 mg Q12H PRN PO CONSTIPATION; Start 07/18/16 at 16: 30 Magnesium Hydroxide (Milk Of Mag) 30 ml DAILY PRN PO CONSTIPATION; Start at 16:30 Pantoprazole (Protonix Iv) 40 mg DAILY@06 IV Last administered on 07/21/16 05: 25; Admin Dose 40 MG; Start 07/19/16 at 06:00 Lactulose (Enulose) 20 gm Q8 PO Last administered on 07/21/16 15:06; Admin Dose 20 GM; Start 07/18/16 at 22:00 Levofloxacin (Levaquin) 500 mg DAILY PO Last administered on 07/21/16 09:23; Admin Dose 500 MG; Start 07/18/16 at 17:00 Potassium Chloride (Klor-Con 20) 20 meq BID PO Last administered on 07/21/16 09:23; Admin Dose 20 MEQ; Start 07/19/16 at 09:00 Hydromorphone HCl (Dilaudid) 1 mg Q4H PRN IV PAIN Last administered on 14:57; Admin Dose 1 MG; Start 07/19/16 at 20:00 SHARIF KAPLAN MD Jul 21, 2016 18:49
--- NOTE | 2016-07-21 19:29 | CONS ---
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 Results/Medications Result Diagram: 07/19/16 0426 07/20/16 0430 Medications Current Medications Hydromorphone HCl (Dilaudid) 0.5 mg Q4H PRN IV PAIN Last administered on 03:56; Admin Dose 0.5 MG; Start 07/18/16 at 15:30 Folic Acid (Folic Acid) 1 mg DAILY PO Last administered on 07/21/16 09:23; Admin Dose 1 MG; Start 07/19/16 at 09:00 Furosemide (Lasix) 40 mg DAILY PO Last administered on 07/21/16 09:23; Admin Dose 40 MG; Start 07/19/16 at 09:00 Ondansetron HCl (Zofran Tab) 4 mg Q6H PRN PO NAUSEA AND/OR VOMITING; Start at 16:30 Spironolactone (Aldactone) 50 mg DAILY PO Last administered on 07/21/16 09:24 ; Admin Dose 50 MG; Start 07/19/16 at 09:00 Thiamine HCl 100 mg 100 mg DAILY PO Last administered on 07/21/16 09:23; Admin Dose 100 MG; Start 07/19/16 at 09:00 Potassium Chloride/Dextrose/ Sod Cl (D5-1/2ns + KCl 20 Meq) 1,000 ml @ 20 mls/ hr Q24H IV Last administered on 07/21/16 13:17; Admin Dose 20 MLS/HR; Start at 16:08 Ondansetron HCl (Zofran Inj) 4 mg Q6H PRN IV NAUSEA AND/OR VOMITING Last administered on 07/20/16 19:53; Admin Dose 4 MG; Start 07/18/16 at 16:30 Acetaminophen (Tylenol Tab) 650 mg Q6H PRN PO PAIN LEVEL 1-3 OR FEVER Last administered on 07/19/16 10:49; Admin Dose 650 MG; Start 07/18/16 at 16:30 Docusate Sodium (Colace) 100 mg Q12H PRN PO CONSTIPATION; Start 07/18/16 at 16: 30 Magnesium Hydroxide (Milk Of Mag) 30 ml DAILY PRN PO CONSTIPATION; Start at 16:30 Pantoprazole (Protonix Iv) 40 mg DAILY@06 IV Last administered on 07/21/16 05: 25; Admin Dose 40 MG; Start 07/19/16 at 06:00 Lactulose (Enulose) 20 gm Q8 PO Last administered on 07/21/16 15:06; Admin Dose 20 GM; Start 07/18/16 at 22:00 Levofloxacin (Levaquin) 500 mg DAILY PO Last administered on 07/21/16 09:23; Admin Dose 500 MG; Start 07/18/16 at 17:00 Potassium Chloride (Klor-Con 20) 20 meq BID PO Last administered on 07/21/16 09:23; Admin Dose 20 MEQ; Start 07/19/16 at 09:00 Hydromorphone HCl (Dilaudid) 1 mg Q4H PRN IV PAIN Last administered on 14:57; Admin Dose 1 MG; Start 07/19/16 at 20:00 Assessment/Plan Chief Complaint/Hosp Course Mr. Tonny Tompkins is a 56-year-old male with multiple significant comorbidities. HIDA noted. 1. Abdominal pain better 2. Right inguinal hernia, asymptomatic. Will need optimization of his cirrhosis and ascites prior to even considering surgical repair because the patient is high risk for surgical comorbidity. 3. Morbid obesity with body mass index of 47. Patient is highly encouraged to optimize his diet and exercise to improve his overall health status. 4. Pancytopenia, probably secondary to liver disease 5. Hypoalbuminemia is probably multifactorial as well. 6. Hyperbilirubinemia secondary to liver disease. will monitor 7. Hypertension. 8.rectal pain from fistula Problems: MAGO PADILLA MD Jul 21, 2016 19:29
--- NOTE | 2016-07-21 19:51 | CONS ---
DATE OF ADMISSION: 07/18/2016 DATE OF CONSULTATION: 07/20/2016 HISTORY OF PRESENT ILLNESS: A 56-year-old male with a history of hepatitis C, cirrhosis of the live r, right inguinal hernia, perianal fistula comes to the hospital for abdominal pain. In the ER, he was evaluated and he had a sonogram done, which showed a normal bile duct, but acute cholecystitis. The patient denies of any GI bleeding. No nausea, no vomiting, no fever with chills. PAST MEDICAL HISTORY: Perianal fistula, hypertension, thrombocytopenia, hepatitis C, anemia, hypert ension, and ascites. ALLERGIES: 1. PENICILLIN. 2. CLINDAMYCIN. 3. ____. HOME MEDICATIONS: 1. Lactulose. 2. Lasix. 3. Zofran. 4. Potassium. 5. Aldactone. 6. Thiamine. REVIEW OF SYSTEMS: Otherwise negative. PHYSICAL EXAMINATION: GENERAL: He is morbidly obese. VITAL SIGNS: Stable. HEENT: Unremarkable. NECK: Supple. No thyromegaly, no lymphadenopathy. CARDIOVASCULAR: No murmur, gallop, or click. LUNGS: Clear. ABDOMEN: Soft, morbidly obese, has ascites. EXTREMITIES: No edema. CENTRAL NERVOUS SYSTEM: Grossly within normal limits. LABORATORY DATA: His total bilirubin when he came in was 2.7 on 07/18/2016 and on 07/19/2016 jumped to 6.1 and on 07/20/2016, also, it was 6.3. CBC showed a platelet count of 54. INR was 1.7. He h ad a paracentesis. Total volume weight 200 mL of fluid removed. Only 147 WBC. There was no eviden ce of spontaneous bacterial peritonitis. The patient had abdominal paracentesis 2 days ago and tota l of 5.6 liters of the fluid was removed. IMPRESSION: 1. Cirrhosis of liver, hepatitis C with decompensation. 2. Ascites, status post paracentesis. 3. Anal fistula. 4. Thrombocytopenia. 5. Cholecystitis. PLAN: To continue diuretics, continue antibiotics, and will monitor LFTs closely, and surgical foll owup. Dictated By: MAGO FOY/NTS Conf#: [id number] DID#: [id number] CC: SHARIF KAPLAN MD; MAGO PADILLA MD;*EndCC*
[2016-07-21 20:46] VITALS: BP 136/77; RESP 19
[2016-07-21] MEDS: DOCUSATE SODIUM 100 MG CAP PO PRN (22:31)
[2016-07-21] MEDS: ONDANSETRON 4 MG INJ IV PRN (22:36)
--- NOTE | 2016-07-21 23:20 | PN ---
Date/Time of Note Date/Time of Note DATE: 07/21/16 TIME: 23:17 Assessment/Plan Lines/Catheters IV Catheter Type (from [facility]): Saline Lock Payne in Place (from [facility]): No Assessment/Plan Chief Complaint/Hosp Course Mr. Tonny Tompkins is a 56-year-old male with multiple significant comorbidities. HIDA noted. 1. Abdominal pain with hyperbilirubinemia. DDx: decompensated Cirrhosis, Hepatic congestion, vs Cholecystitis, Cholelithiasis, Choledocholithiasis -GI/Medical optimization -No surgical intervention per GI -Abx 2. Right inguinal hernia, asymptomatic. Will need optimization of his cirrhosis and ascites prior to even considering surgical repair because the patient is high risk for surgical comorbidity. 3. Morbid obesity with body mass index of 47. Patient is highly encouraged to optimize his diet and exercise to improve his overall health status. 4. Pancytopenia, probably secondary to liver disease and/or other etiology. We will defer to medical team for further workup and treatment. 5. Hypoalbuminemia is probably multifactorial as well. Continue medical management. 6. Hyperbilirubinemia secondary to liver disease. Defer to GI. 7. Hypertension. Continue diet and medication control and encourage weight optimization. 8. Hemorrhoids. -local care -medical management Thank you, Problems: Subjective 24 Hr Interval Summary GI input appreciated in regards to decompensated cirrhosis. Abdominal pain is minimal. No n/v. No f/c. No cp/sob. No cough. No navarro/dizzy/visual or neuro changes. Exam/Review of Systems Vital Signs Vitals Vital Signs Date Time Temp Pulse Resp B/P Pulse Ox O2 Delivery O2 Flow Rate FiO2 07/21/16 20:46 98.2 94 19 136/77 98 07/21/16 08:00 Nasal Cannula 2.0 Intake and Output 07/20/16 07/20/16 07/21/16 15:00 23:00 07:00 Intake Total 200 ml 60 ml Output Total 900 ml Balance 200 ml -840 ml Exam Free Text/Dictation GENERAL: No acute distress, obese. HEENT: Pupils equal, reactive. Icterus. Mucous membranes are moist. NECK: Supple. Minimal JVD. CHEST/PULMONARY: Normal respiratory effort. No wheezing. CARDIAC: S1, S2 present. ABDOMEN: Soft, obese, min tender. Right inguinal hernia that is reducible. Lower abdominal wall edema and erythema. EXTREMITIES: Minimal edema. VASCULAR: Capillary refill is 2 seconds. NEUROLOGIC: Alert, oriented, moves all 4 extremities grossly. RECTAL: Minimal hemorrhoids. SKIN: Jaundice. Results Result Diagram: 07/19/16 0426 07/20/16 0430 SHRUTHI VALDES MD Jul 21, 2016 23:20
[2016-07-22] MEDS: ONDANSETRON 4 MG INJ IV PRN ×2 (02:05→21:12)
[2016-07-22 05:42] LABS: BASOPHILS % 0.1 % (0.0-2.0); EOSINOPHILS % 0.4 % (0.0-7.0); HEMATOCRIT 29.3 % (42.0-52.0); HEMOGLOBIN 10.1 g/dl (14.0-18.0); LYMPHOCYTES # 0.7 10^3/ul (0.8-2.9); LYMPHOCYTES % 11.1 % (15.0-51.0); MEAN CORPUSCULAR HGB CONC 34.4 g/dl (32.0-37.0); MEAN CORPUSCULAR VOLUME 95.9 fl (82.0-101.0); MEAN PLATELET VOLUME 7.7 fl (7.4-10.4); MONOCYTE # 0.7 10^3/ul (0.3-0.9); MONOCYTES % 10.6 % (0.0-11.0); NEUTROPHIL # 4.9 10^3/ul (1.6-7.5); NEUTROPHILS % 77.8 % (39.0-77.0); PLATELET COUNT 43 10^3/UL (140-440); RED BLOOD COUNT 3.05 10^6/ul (4.70-6.10); RED CELL DISTRIBUTION WIDTH 18.8 % (11.5-14.5); UNCORRECTED WBC 6.3 10^3/ul (4.8-10.8); WHITE BLOOD COUNT 6.3 10^3/ul (4.8-10.8)
[2016-07-22 05:47] LABS: ALBUMIN 2.4 g/dl (3.3-4.9)
[2016-07-22 05:50] LABS: BILIRUBIN,DIRECT 2.5 mg/dl (0.00-0.20); BILIRUBIN,INDIRECT 3.1 mg/dl (0-1.1); BILIRUBIN,TOTAL 5.6 mg/dl (0.2-1.3); CREATININE 0.71 mg/dl (0.61-1.24)
[2016-07-22 05:51] LABS: ALBUMIN/GLOBULIN RATIO 0.68; CALCIUM 7.9 mg/dl (8.4-10.2); TOTAL PROTEIN 5.9 g/dl (6.1-8.1)
[2016-07-22 06:19] LABS: CONDITION 1; LH ANALYZER COMMENTS 1
[2016-07-22] MEDS: LACTULOSE 30ML CUP PO SCH ×3 (06:29→21:13)
[2016-07-22] MEDS: HYDROmorphONE 1 MG/ML SYG IV PRN ×3 (06:30→22:44)
[2016-07-22 08:42] VITALS: BP 124/64; RESP 18
[2016-07-22] MEDS: FOLIC ACID 1 MG TAB PO SCH (08:50)
[2016-07-22] MEDS: THIAMINE 100 MG TAB PO SCH (08:50)
[2016-07-22] MEDS: LEVOFLOXACIN 500 MG TAB PO SCH (08:50)
[2016-07-22] MEDS: DOCUSATE SODIUM 100 MG CAP PO PRN (08:50)
[2016-07-22] MEDS: FUROSEMIDE 40 MG TAB PO SCH (08:51)
[2016-07-22] MEDS: POTASSIUM CHLORIDE (SR) 20 MEQ TAB PO SCH ×2 (08:51→21:13)
[2016-07-22] MEDS: SPIRONOLACTONE 25 MG TAB PO SCH (08:52)
[2016-07-22] MEDS: PANTOPRAZOLE 40 MG INJ IV SCH (14:29)
[2016-07-22] MEDS: D5W-0.45 NACL + KCL 20 MEQ 1,000 ML IV SCH (16:08)
--- NOTE | 2016-07-22 20:14 | CONS ---
Date/Time of Note Date/Time of Note DATE: 07/22/16 TIME: 20:12 Assessment/Plan Assessment/Plan Chief Complaint/Hosp Course Mr. Tonny Tompkins is a 56-year-old male with multiple significant comorbidities. HIDA noted. 1. Abdominal pain better 2. Right inguinal hernia, asymptomatic. Will need optimization of his cirrhosis and ascites prior to even considering surgical repair because the patient is high risk for surgical comorbidity. 3. Morbid obesity with body mass index of 47. Patient is highly encouraged to optimize his diet and exercise to improve his overall health status. 4. Pancytopenia, probably secondary to liver disease 5. Hypoalbuminemia is probably multifactorial as well. 6. Hyperbilirubinemia secondary to liver disease. will monitor 7. Hypertension. 8.rectal pain from fistula Problems: Additional Assessment/Plan IMPRESSION: 1. Cirrhosis of liver, hepatitis C with decompensation. 2. Ascites, status post paracentesis. 3. Anal fistula. 4. Thrombocytopenia. 5. Cholecystitis.asymptomatic PLAN: To continue diuretics, continue antibiotics, and will monitor LFTs closely, and surgical followup. alexandre corral high risk for surgery Consultation Date/Type/Reason Admit Date/Time Jul 18, 2016 at 05:37 Initial Consult Date 07/18/16 24 HR Interval Summary Free Text/Dictation no abdominal pain rectal pain Constitutional: improved Exam/Review of Systems Vital Signs Vitals Vital Signs Date Time Temp Pulse Resp B/P Pulse Ox O2 Delivery O2 Flow Rate FiO2 07/22/16 08:42 98.0 97 18 124/64 97 07/21/16 20:55 Nasal Cannula 2.0 Intake and Output 07/21/16 07/21/16 07/22/16 15:00 23:00 07:00 Intake Total 340 ml 420 ml Output Total 1000 ml 900 ml Balance -660 ml -480 ml Exam Constitutional: alert, oriented, well developed Psych: nl mood/affect, no complaints Head: atraumatic, normocephalic Eyes: EOMI, PERRL, nl conjunctiva, nl lids, nl sclera ENMT: nl external ears & nose, nl lips & teeth, nl nasal mucosa & septum Neck: non-tender, supple Respiratory: clear to auscultation, normal air movement Cardiovascular: nl pulses, regular rate and rhythm Gastrointestinal: nl liver, spleen, non-tender, soft Musculoskeletal: nl extremities to inspection, nl gait and stance Extremities: normal pulses 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, nl mental status, nl speech, nl strength Skin: nl turgor, No rash or lesions Lymph: nl lymph nodes Results Result Diagram: 07/22/16 0455 07/22/16 0455 Results 24 hrs Laboratory Tests Test 07/22/16 04:55 Alanine Aminotransferase (ALT/SGPT) 34 Albumin 2.4 L Albumin/Globulin Ratio 0.68 Alkaline Phosphatase 166 H Anion Gap 13 Aspartate Amino Transf (AST/SGOT) 47 H Basophils # 0.0 Basophils % 0.1 Blood Morphology Comment Blood Urea Nitrogen 15 Calcium Level 7.9 L Carbon Dioxide Level 27 Chloride Level 96 L Creatinine 0.71 Direct Bilirubin 2.50 H Eosinophils # 0.0 Eosinophils % 0.4 Globulin 3.50 H Glucose Level 87 Hematocrit 29.3 L Hemoglobin 10.1 L Indirect Bilirubin 3.1 H Lymphocytes # 0.7 L Lymphocytes % 11.1 L Mean Corpuscular Hemoglobin 33.0 Mean Corpuscular Hemoglobin Concent 34.4 Mean Corpuscular Volume 95.9 Mean Platelet Volume 7.7 Monocytes # 0.7 Monocytes % 10.6 Neutrophils # 4.9 Neutrophils % 77.8 H Nucleated Red Blood Cells # 0.0 Nucleated Red Blood Cells % 0.0 Platelet Count 43 #L Potassium Level 4.0 Red Blood Count 3.05 L Red Cell Distribution Width 18.8 H Sodium Level 132 L Total Bilirubin 5.6 H Total Protein 5.9 L White Blood Count 6.3 Medications Medications Current Medications Hydromorphone HCl (Dilaudid) 0.5 mg Q4H PRN IV PAIN Last administered on 03:56; Admin Dose 0.5 MG; Start 07/18/16 at 15:30 Folic Acid (Folic Acid) 1 mg DAILY PO Last administered on 07/22/16 08:50; Admin Dose 1 MG; Start 07/19/16 at 09:00 Furosemide (Lasix) 40 mg DAILY PO Last administered on 07/22/16 08:51; Admin Dose 40 MG; Start 07/19/16 at 09:00 Ondansetron HCl (Zofran Tab) 4 mg Q6H PRN PO NAUSEA AND/OR VOMITING; Start at 16:30 Spironolactone (Aldactone) 50 mg DAILY PO Last administered on 07/22/16 08:52 ; Admin Dose 50 MG; Start 07/19/16 at 09:00 Thiamine HCl 100 mg 100 mg DAILY PO Last administered on 07/22/16 08:50; Admin Dose 100 MG; Start 07/19/16 at 09:00 Potassium Chloride/Dextrose/ Sod Cl (D5-1/2ns + KCl 20 Meq) 1,000 ml @ 20 mls/ hr Q24H IV Last administered on 07/21/16 13:17; Admin Dose 20 MLS/HR; Start at 16:08 Ondansetron HCl (Zofran Inj) 4 mg Q6H PRN IV NAUSEA AND/OR VOMITING Last administered on 07/22/16 02:05; Admin Dose 4 MG; Start 07/18/16 at 16:30 Acetaminophen (Tylenol Tab) 650 mg Q6H PRN PO PAIN LEVEL 1-3 OR FEVER Last administered on 07/19/16 10:49; Admin Dose 650 MG; Start 07/18/16 at 16:30 Docusate Sodium (Colace) 100 mg Q12H PRN PO CONSTIPATION Last administered on 08:50; Admin Dose 100 MG; Start 07/18/16 at 16:30 Magnesium Hydroxide (Milk Of Mag) 30 ml DAILY PRN PO CONSTIPATION; Start at 16:30 Pantoprazole (Protonix Iv) 40 mg DAILY@06 IV Last administered on 07/22/16 14: 29; Admin Dose 40 MG; Start 07/19/16 at 06:00 Lactulose (Enulose) 20 gm Q8 PO Last administered on 07/22/16 14:29; Admin Dose 20 GM; Start 07/18/16 at 22:00 Levofloxacin (Levaquin) 500 mg DAILY PO Last administered on 07/22/16 08:50; Admin Dose 500 MG; Start 07/18/16 at 17:00 Potassium Chloride (Klor-Con 20) 20 meq BID PO Last administered on 07/22/16 08:51; Admin Dose 20 MEQ; Start 07/19/16 at 09:00 Hydromorphone HCl (Dilaudid) 1 mg Q4H PRN IV PAIN Last administered on 14:49; Admin Dose 1 MG; Start 07/19/16 at 20:00 MAGO PADILLA MD Jul 22, 2016 20:13
[2016-07-22 20:22] VITALS: BP 131/78; RESP 20
--- NOTE | 2016-07-22 20:28 | PN ---
Date/Time of Note Date/Time of Note DATE: 07/22/16 TIME: 20:27 Assessment/Plan VTE Prophylaxis VTE Prophylaxis Intervention: other Lines/Catheters IV [facility] Type (from [facility]): Saline Lock Urinary Cath still in place: No Assessment/Plan Chief Complaint/Hosp Course IMPRESSION: 1. Acute cholecystitis.better 2. Ascites. 3. Pleural effusion. 4. Hypokalemia.BETTER 5. Anemia. 6. Thrombocytopenia. 7. Cirrhosis. 8. Perianal fistula. 9. Inguinal hernia. 10 ABN LFT 11 anal fistula PLAN GI PER SURGERY HIDA SEEN MRI SEEN D/W DR PADILLA antibiotic Problems: Subjective 24 Hr Interval Summary Respiratory: no complaints Cardiovascular: no complaints Exam/Review of Systems Vital Signs Vitals Vital Signs Date Time Temp Pulse Resp B/P Pulse Ox O2 Delivery O2 Flow Rate FiO2 07/22/16 20:22 98.1 88 20 131/78 94 07/21/16 20:55 Nasal Cannula 2.0 Intake and Output 07/21/16 07/21/16 07/22/16 15:00 23:00 07:00 Intake Total 340 ml 420 ml Output Total 1000 ml 900 ml Balance -660 ml -480 ml Exam Respiratory: clear to auscultation Cardiovascular: regular rate and rhythm Gastrointestinal: ascites (+), soft Results Result Diagram: 07/22/16 0455 07/22/16 0455 Results 24 hrs Laboratory Tests Test 07/22/16 04:55 Alanine Aminotransferase (ALT/SGPT) 34 Albumin 2.4 L Albumin/Globulin Ratio 0.68 Alkaline Phosphatase 166 H Anion Gap 13 Aspartate Amino Transf (AST/SGOT) 47 H Basophils # 0.0 Basophils % 0.1 Blood Morphology Comment Blood Urea Nitrogen 15 Calcium Level 7.9 L Carbon Dioxide Level 27 Chloride Level 96 L Creatinine 0.71 Direct Bilirubin 2.50 H Eosinophils # 0.0 Eosinophils % 0.4 Globulin 3.50 H Glucose Level 87 Hematocrit 29.3 L Hemoglobin 10.1 L Indirect Bilirubin 3.1 H Lymphocytes # 0.7 L Lymphocytes % 11.1 L Mean Corpuscular Hemoglobin 33.0 Mean Corpuscular Hemoglobin Concent 34.4 Mean Corpuscular Volume 95.9 Mean Platelet Volume 7.7 Monocytes # 0.7 Monocytes % 10.6 Neutrophils # 4.9 Neutrophils % 77.8 H Nucleated Red Blood Cells # 0.0 Nucleated Red Blood Cells % 0.0 Platelet Count 43 #L Potassium Level 4.0 Red Blood Count 3.05 L Red Cell Distribution Width 18.8 H Sodium Level 132 L Total Bilirubin 5.6 H Total Protein 5.9 L White Blood Count 6.3 Medications Medications Current Medications Hydromorphone HCl (Dilaudid) 0.5 mg Q4H PRN IV PAIN Last administered on 03:56; Admin Dose 0.5 MG; Start 07/18/16 at 15:30 Folic Acid (Folic Acid) 1 mg DAILY PO Last administered on 07/22/16 08:50; Admin Dose 1 MG; Start 07/19/16 at 09:00 Furosemide (Lasix) 40 mg DAILY PO Last administered on 07/22/16 08:51; Admin Dose 40 MG; Start 07/19/16 at 09:00 Ondansetron HCl (Zofran Tab) 4 mg Q6H PRN PO NAUSEA AND/OR VOMITING; Start at 16:30 Spironolactone (Aldactone) 50 mg DAILY PO Last administered on 07/22/16 08:52 ; Admin Dose 50 MG; Start 07/19/16 at 09:00 Thiamine HCl 100 mg 100 mg DAILY PO Last administered on 07/22/16 08:50; Admin Dose 100 MG; Start 07/19/16 at 09:00 Potassium Chloride/Dextrose/ Sod Cl (D5-1/2ns + KCl 20 Meq) 1,000 ml @ 20 mls/ hr Q24H IV Last administered on 07/21/16 13:17; Admin Dose 20 MLS/HR; Start at 16:08 Ondansetron HCl (Zofran Inj) 4 mg Q6H PRN IV NAUSEA AND/OR VOMITING Last administered on 07/22/16 02:05; Admin Dose 4 MG; Start 07/18/16 at 16:30 Acetaminophen (Tylenol Tab) 650 mg Q6H PRN PO PAIN LEVEL 1-3 OR FEVER Last administered on 07/19/16 10:49; Admin Dose 650 MG; Start 07/18/16 at 16:30 Docusate Sodium (Colace) 100 mg Q12H PRN PO CONSTIPATION Last administered on 08:50; Admin Dose 100 MG; Start 07/18/16 at 16:30 Magnesium Hydroxide (Milk Of Mag) 30 ml DAILY PRN PO CONSTIPATION; Start at 16:30 Pantoprazole (Protonix Iv) 40 mg DAILY@06 IV Last administered on 07/22/16 14: 29; Admin Dose 40 MG; Start 07/19/16 at 06:00 Lactulose (Enulose) 20 gm Q8 PO Last administered on 07/22/16 14:29; Admin Dose 20 GM; Start 07/18/16 at 22:00 Levofloxacin (Levaquin) 500 mg DAILY PO Last administered on 07/22/16 08:50; Admin Dose 500 MG; Start 07/18/16 at 17:00 Potassium Chloride (Klor-Con 20) 20 meq BID PO Last administered on 07/22/16 08:51; Admin Dose 20 MEQ; Start 07/19/16 at 09:00 Hydromorphone HCl (Dilaudid) 1 mg Q4H PRN IV PAIN Last administered on 14:49; Admin Dose 1 MG; Start 07/19/16 at 20:00 SHARIF KAPLAN MD Jul 22, 2016 20:28
[2016-07-23] MEDS: ONDANSETRON 4 MG INJ IV PRN ×2 (05:05→18:37)
[2016-07-23] MEDS: HYDROmorphONE 1 MG/ML SYG IV PRN ×2 (05:10→13:23)
[2016-07-23] MEDS: PANTOPRAZOLE 40 MG INJ IV SCH (05:13)
[2016-07-23] MEDS: LACTULOSE 30ML CUP PO SCH ×3 (05:13→21:32)
[2016-07-23 08:01] VITALS: BP 125/70; RESP 20
[2016-07-23] MEDS: SPIRONOLACTONE 25 MG TAB PO SCH (08:23)
[2016-07-23] MEDS: FOLIC ACID 1 MG TAB PO SCH (08:23)
[2016-07-23] MEDS: LEVOFLOXACIN 500 MG TAB PO SCH (08:23)
[2016-07-23] MEDS: THIAMINE 100 MG TAB PO SCH (08:24)
[2016-07-23] MEDS: POTASSIUM CHLORIDE (SR) 20 MEQ TAB PO SCH ×2 (08:24→21:32)
[2016-07-23] MEDS: FUROSEMIDE 40 MG TAB PO SCH (08:24)
[2016-07-23] MEDS: D5W-0.45 NACL + KCL 20 MEQ 1,000 ML IV SCH (16:08)
--- NOTE | 2016-07-23 18:30 | CONS ---
Date/Time of Note Date/Time of Note DATE: 07/23/16 TIME: 18:29 Assessment/Plan Assessment/Plan Chief Complaint/Hosp Course Mr. Tonny Tompkins is a 56-year-old male with multiple significant comorbidities. HIDA noted. 1. Abdominal pain better 2. Right inguinal hernia, asymptomatic. Will need optimization of his cirrhosis and ascites prior to even considering surgical repair because the patient is high risk for surgical comorbidity. 3. Morbid obesity with body mass index of 47. Patient is highly encouraged to optimize his diet and exercise to improve his overall health status. 4. Pancytopenia, probably secondary to liver disease 5. Hypoalbuminemia is probably multifactorial as well. 6. Hyperbilirubinemia secondary to liver disease. will monitor 7. Hypertension. 8.rectal pain from fistula Problems: Additional Assessment/Plan Assessment/Plan Assessment/Plan Chief Complaint/Hosp Course Mr. Tonny Tompkins is a 56-year-old male with multiple significant comorbidities. HIDA noted. 1. Abdominal pain better 2. Right inguinal hernia, asymptomatic. Will need optimization of his cirrhosis and ascites prior to even considering surgical repair because the patient is high risk for surgical comorbidity. 3. Morbid obesity with body mass index of 47. Patient is highly encouraged to optimize his diet and exercise to improve his overall health status. 4. Pancytopenia, probably secondary to liver disease 5. Hypoalbuminemia is probably multifactorial as well. 6. Hyperbilirubinemia secondary to liver disease. will monitor 7. Hypertension. 8.rectal pain from fistula Problems: Additional Assessment/Plan IMPRESSION: 1. Cirrhosis of liver, hepatitis C with decompensation. 2. Ascites, status post paracentesis. 3. Anal fistula. 4. Thrombocytopenia. 5. Cholecystitis.asymptomatic PLAN: To continue diuretics, continue antibiotics, and will monitor LFTs closely, and surgical followup. [facility] high risk for surgery Consultation Date/Type/Reason Admit Date/Time Jul 18, 2016 at 05:37 Initial Consult Date 07/18/16 24 HR Interval Summary Free Text/Dictation rectal pain Constitutional: improved Exam/Review of Systems Vital Signs Vitals Vital Signs Date Time Temp Pulse Resp B/P Pulse Ox O2 Delivery O2 Flow Rate FiO2 07/23/16 08:01 98.3 80 20 125/70 97 07/21/16 20:55 Nasal Cannula 2.0 Intake and Output 07/22/16 07/22/16 07/23/16 15:00 23:00 07:00 Intake Total 440 ml 640 ml Output Total 800 ml Balance -360 ml 640 ml Exam Respiratory: clear to auscultation, normal air movement Cardiovascular: nl pulses, regular rate and rhythm Gastrointestinal: ascites Musculoskeletal: nl extremities to inspection, nl gait and stance Extremities: normal pulses Results Result Diagram: 07/22/16 0455 07/22/16 0455 Medications Medications Current Medications Hydromorphone HCl (Dilaudid) 0.5 mg Q4H PRN IV PAIN Last administered on 03:56; Admin Dose 0.5 MG; Start 07/18/16 at 15:30 Folic Acid (Folic Acid) 1 mg DAILY PO Last administered on 07/23/16 08:23; Admin Dose 1 MG; Start 07/19/16 at 09:00 Furosemide (Lasix) 40 mg DAILY PO Last administered on 07/23/16 08:24; Admin Dose 40 MG; Start 07/19/16 at 09:00 Ondansetron HCl (Zofran Tab) 4 mg Q6H PRN PO NAUSEA AND/OR VOMITING; Start at 16:30 Spironolactone (Aldactone) 50 mg DAILY PO Last administered on 07/23/16 08:23 ; Admin Dose 50 MG; Start 07/19/16 at 09:00 Thiamine HCl 100 mg 100 mg DAILY PO Last administered on 07/23/16 08:24; Admin Dose 100 MG; Start 07/19/16 at 09:00 Potassium Chloride/Dextrose/ Sod Cl (D5-1/2ns + KCl 20 Meq) 1,000 ml @ 20 mls/ hr Q24H IV Last administered on 07/21/16 13:17; Admin Dose 20 MLS/HR; Start at 16:08 Ondansetron HCl (Zofran Inj) 4 mg Q6H PRN IV NAUSEA AND/OR VOMITING Last administered on 07/23/16 05:05; Admin Dose 4 MG; Start 07/18/16 at 16:30 Acetaminophen (Tylenol Tab) 650 mg Q6H PRN PO PAIN LEVEL 1-3 OR FEVER Last administered on 07/19/16 10:49; Admin Dose 650 MG; Start 07/18/16 at 16:30 Docusate Sodium (Colace) 100 mg Q12H PRN PO CONSTIPATION Last administered on 08:50; Admin Dose 100 MG; Start 07/18/16 at 16:30 Magnesium Hydroxide (Milk Of Mag) 30 ml DAILY PRN PO CONSTIPATION; Start at 16:30 Pantoprazole (Protonix Iv) 40 mg DAILY@06 IV Last administered on 07/23/16 05: 13; Admin Dose 40 MG; Start 07/19/16 at 06:00 Lactulose (Enulose) 20 gm Q8 PO Last administered on 07/23/16 13:23; Admin Dose 20 GM; Start 07/18/16 at 22:00 Levofloxacin (Levaquin) 500 mg DAILY PO Last administered on 07/23/16 08:23; Admin Dose 500 MG; Start 07/18/16 at 17:00 Potassium Chloride (Klor-Con 20) 20 meq BID PO Last administered on 07/23/16 08:24; Admin Dose 20 MEQ; Start 07/19/16 at 09:00 Hydromorphone HCl (Dilaudid) 1 mg Q4H PRN IV PAIN Last administered on 13:23; Admin Dose 1 MG; Start 07/19/16 at 20:00 MAGO PADILLA MD Jul 23, 2016 18:30
[2016-07-23 19:35] VITALS: BP 124/74; RESP 20
--- NOTE | 2016-07-23 21:56 | PN ---
Date/Time of Note Date/Time of Note DATE: 07/23/16 TIME: 21:55 Assessment/Plan VTE Prophylaxis VTE Prophylaxis Intervention: other Lines/Catheters [facility]from [facility] Peripheral IV Urinary Cath still in place: No Assessment/Plan Chief Complaint/Hosp Course IMPRESSION: 1. Acute cholecystitis.better 2. Ascites. 3. Pleural effusion. 4. Hypokalemia.BETTER 5. Anemia. 6. Thrombocytopenia. 7. Cirrhosis. 8. Perianal fistula. 9. Inguinal hernia. 10 ABN LFT 11 anal fistula PLAN GI PER SURGERY HIDA SEEN MRI SEEN D/W DR PADILLA antibiotic [facility] LABS Problems: Subjective 24 Hr Interval Summary Respiratory: no complaints Cardiovascular: no complaints Exam/Review of Systems Vital Signs Vitals Vital Signs Date Time Temp Pulse Resp B/P Pulse Ox O2 Delivery O2 Flow Rate FiO2 07/23/16 19:35 98.6 97 20 124/74 97 07/21/16 20:55 Nasal Cannula 2.0 Intake and Output 07/22/16 07/22/16 07/23/16 15:00 23:00 07:00 Intake Total 440 ml 640 ml Output Total 800 ml Balance -360 ml 640 ml Exam Neck: supple Respiratory: clear to auscultation Cardiovascular: regular rate and rhythm Gastrointestinal: soft Musculoskeletal: nl extremities to inspection Extremities: normal pulses Results Result Diagram: 07/22/16 0455 07/22/16 0455 Medications Medications Current Medications Hydromorphone HCl (Dilaudid) 0.5 mg Q4H PRN IV PAIN Last administered on 03:56; Admin Dose 0.5 MG; Start 07/18/16 at 15:30 Folic Acid (Folic Acid) 1 mg DAILY PO Last administered on 07/23/16 08:23; Admin Dose 1 MG; Start 07/19/16 at 09:00 Furosemide (Lasix) 40 mg DAILY PO Last administered on 07/23/16 08:24; Admin Dose 40 MG; Start 07/19/16 at 09:00 Ondansetron HCl (Zofran Tab) 4 mg Q6H PRN PO NAUSEA AND/OR VOMITING; Start at 16:30 Spironolactone (Aldactone) 50 mg DAILY PO Last administered on 07/23/16 08:23 ; Admin Dose 50 MG; Start 07/19/16 at 09:00 Thiamine HCl 100 mg 100 mg DAILY PO Last administered on 07/23/16 08:24; Admin Dose 100 MG; Start 07/19/16 at 09:00 Potassium Chloride/Dextrose/ Sod Cl (D5-1/2ns + KCl 20 Meq) 1,000 ml @ 20 mls/ hr Q24H IV Last administered on 07/21/16 13:17; Admin Dose 20 MLS/HR; Start at 16:08 Ondansetron HCl (Zofran Inj) 4 mg Q6H PRN IV NAUSEA AND/OR VOMITING Last administered on 07/23/16 18:37; Admin Dose 4 MG; Start 07/18/16 at 16:30 Acetaminophen (Tylenol Tab) 650 mg Q6H PRN PO PAIN LEVEL 1-3 OR FEVER Last administered on 07/19/16 10:49; Admin Dose 650 MG; Start 07/18/16 at 16:30 Docusate Sodium (Colace) 100 mg Q12H PRN PO CONSTIPATION Last administered on 08:50; Admin Dose 100 MG; Start 07/18/16 at 16:30 Magnesium Hydroxide (Milk Of Mag) 30 ml DAILY PRN PO CONSTIPATION; Start at 16:30 Pantoprazole (Protonix Iv) 40 mg DAILY@06 IV Last administered on 07/23/16 05: 13; Admin Dose 40 MG; Start 07/19/16 at 06:00 Lactulose (Enulose) 20 gm Q8 PO Last administered on 07/23/16 21:32; Admin Dose 20 GM; Start 07/18/16 at 22:00 Levofloxacin (Levaquin) 500 mg DAILY PO Last administered on 07/23/16 08:23; Admin Dose 500 MG; Start 07/18/16 at 17:00 Potassium Chloride (Klor-Con 20) 20 meq BID PO Last administered on 07/23/16 21:32; Admin Dose 20 MEQ; Start 07/19/16 at 09:00 Hydromorphone HCl (Dilaudid) 1 mg Q4H PRN IV PAIN Last administered on 13:23; Admin Dose 1 MG; Start 07/19/16 at 20:00 SHARIF KAPLAN MD Jul 23, 2016 21:56
--- NOTE | 2016-07-24 02:04 | QN ---
Documentation Comment Date/Time of Note DATE: 07/22/16 TIME: 20:17 Assessment/Plan Assessment/Plan Mr. Tonny Tompkins is a 56-year-old male with multiple significant comorbidities. HIDA noted. 1. Abdominal pain with hyperbilirubinemia. DDx: decompensated Cirrhosis, Hepatic congestion, vs Cholecystitis, Cholelithiasis, Choledocholithiasis -GI/Medical optimization -No surgical intervention per GI -Abx 2. Right inguinal hernia, asymptomatic. Will need optimization of his cirrhosis and ascites prior to even considering surgical repair because the patient is high risk for surgical comorbidity. 3. [id number] -local care -medical management -colorectal sx 4. Pancytopenia, probably secondary to liver disease and/or other etiology. We will defer to medical team for further workup and treatment. 5. Hypoalbuminemia is probably multifactorial as well. Continue medical management. 6. Hyperbilirubinemia secondary to liver disease. Defer to GI. 7. Hypertension. Continue diet and medication control and encourage weight optimization. 8. Hemorrhoids, small -local care -medical management 9. Morbid obesity with body mass index of 47. Patient is highly encouraged to optimize his diet and exercise to improve his overall health status. Thank you, Subjective 24 Hr Interval Summary GI input appreciated in regards to decompensated cirrhosis. Abdominal pain is minimal. No n/v. No f/c. No cp/sob. No cough. No navarro/dizzy/visual or neuro changes. Drainage from buttock wound/fistula Exam/Review of Systems Exam/Review of Systems Vital Signs AVSS Exam GENERAL: No acute distress, obese. HEENT: Pupils equal, reactive. Icterus. Mucous membranes are moist. NECK: Supple. Minimal JVD. CHEST/PULMONARY: Normal respiratory effort. No wheezing. CARDIAC: S1, S2 present. ABDOMEN: Soft, obese, min tender. Right inguinal hernia that is reducible. Lower abdominal wall edema and erythema. EXTREMITIES: Minimal edema. VASCULAR: Capillary refill is 2 seconds. NEUROLOGIC: Alert, oriented, moves all 4 extremities grossly. RECTAL: Minimal hemorrhoids. Right buttock opening of fistula with dc SKIN: Jaundice. Results Noted SHRUTHI VALDES MD Jul 24, 2016 02:04
--- NOTE | 2016-07-24 02:09 | PN ---
Date/Time of Note Date/Time of Note DATE: ;07/23/16 TIME: 21:20 Assessment/Plan Lines/Catheters IV Catheter Type (from [facility]): Saline Lock [facility] in Place (from [facility]): No Assessment/Plan Chief Complaint/Hosp Course Late entry 07/23 Mr. Tonny Tompkins is a 56-year-old male with multiple significant comorbidities. HIDA noted. 1. Abdominal pain with hyperbilirubinemia. DDx: decompensated Cirrhosis, Hepatic congestion, vs Cholecystitis, Cholelithiasis, Choledocholithiasis -GI/Medical optimization -No surgical intervention per GI -Abx 2. Right inguinal hernia, asymptomatic. Will need optimization of his cirrhosis and ascites prior to even considering surgical repair because the patient is high risk for surgical comorbidity. 3. [id number] -local care -medical management -colorectal sx 4. Pancytopenia, probably secondary to liver disease and/or other etiology. We will defer to medical team for further workup and treatment. 5. Hypoalbuminemia is probably multifactorial as well. Continue medical management. 6. Hyperbilirubinemia secondary to liver disease. Defer to GI. 7. Hypertension. Continue diet and medication control and encourage weight optimization. 8. Hemorrhoids, small -local care -medical management 9. Morbid obesity with body mass index of 47. Patient is highly encouraged to optimize his diet and exercise to improve his overall health status. Thank you, Problems: Subjective 24 Hr Interval Summary Abdominal pain is minimal. No n/v. No f/c. No cp/sob. No cough. No navarro/dizzy /visual or neuro changes. Drainage from buttock wound/fistula Exam/Review of Systems Vital Signs Vitals Vital Signs Date Time Temp Pulse Resp B/P Pulse Ox O2 Delivery O2 Flow Rate FiO2 07/23/16 19:35 98.6 97 20 124/74 97 07/21/16 20:55 Nasal Cannula 2.0 Intake and Output 07/23/16 07/23/16 07/24/16 15:00 23:00 07:00 Intake Total 540 ml Output Total 900 ml Balance -360 ml Exam Free Text/Dictation GENERAL: No acute distress, obese. HEENT: Pupils equal, reactive. Icterus. Mucous membranes are moist. NECK: Supple. Minimal JVD. CHEST/PULMONARY: Normal respiratory effort. No wheezing. CARDIAC: S1, S2 present. ABDOMEN: Soft, obese, min tender. Right inguinal hernia that is reducible. Lower abdominal wall edema and erythema. EXTREMITIES: Minimal edema. VASCULAR: Capillary refill is 2 seconds. NEUROLOGIC: Alert, oriented, moves all 4 extremities grossly. RECTAL: Minimal hemorrhoids. Right buttock opening of fistula with dc SKIN: Jaundice. Results Result Diagram: 07/22/16 0455 07/22/16 0455 SHRUTHI VALDES MD Jul 24, 2016 02:09
[2016-07-24 05:20] LABS: POTASSIUM 3.7 mmol/L (3.5-5.1)
[2016-07-24 05:22] LABS: ALBUMIN/GLOBULIN RATIO 0.6; BILIRUBIN,DIRECT 1.1 mg/dl (0.00-0.20); BILIRUBIN,INDIRECT 2.5 mg/dl (0-1.1); BILIRUBIN,TOTAL 3.6 mg/dl (0.2-1.3); CREATININE 0.7 mg/dl (0.61-1.24); TOTAL PROTEIN 5.3 g/dl (6.1-8.1)
[2016-07-24 05:23] LABS: CALCIUM 7.5 mg/dl (8.4-10.2)
[2016-07-24] MEDS: LACTULOSE 30ML CUP PO SCH ×2 (05:54→14:44)
[2016-07-24] MEDS: PANTOPRAZOLE 40 MG INJ IV SCH (05:54)
[2016-07-24 07:09] VITALS: BP 124/72; RESP 16
[2016-07-24] MEDS: HYDROmorphONE 1 MG/ML SYG IV PRN ×2 (07:53→16:58)
[2016-07-24] MEDS: THIAMINE 100 MG TAB PO SCH (08:00)
[2016-07-24] MEDS: LEVOFLOXACIN 500 MG TAB PO SCH (08:01)
[2016-07-24] MEDS: POTASSIUM CHLORIDE (SR) 20 MEQ TAB PO SCH (08:03)
[2016-07-24] MEDS: FUROSEMIDE 40 MG TAB PO SCH (08:03)
[2016-07-24] MEDS: SPIRONOLACTONE 25 MG TAB PO SCH (08:04)
[2016-07-24] MEDS: FOLIC ACID 1 MG TAB PO SCH (08:04)
[2016-07-24 08:06] VITALS: BP 142/68; PULSE 86; RESP 18
--- NOTE | 2016-07-24 11:24 | PN ---
Date/Time of Note Date/Time of Note DATE: 07/24/16 TIME: 11:23 Assessment/Plan VTE Prophylaxis VTE Prophylaxis Intervention: other Lines/Catheters IV [facility] Type (from [facility]): Saline Lock Urinary Cath still in place: No Assessment/Plan Chief Complaint/Hosp Course IMPRESSION: 1. Acute cholecystitis.better 2. Ascites. 3. Pleural effusion. 4. Hypokalemia.BETTER 5. Anemia. 6. Thrombocytopenia. 7. Cirrhosis. 8. Perianal fistula. 9. Inguinal hernia. 10 ABN LFT 11 anal fistula PLAN GI PER SURGERY HIDA SEEN MRI SEEN D/W DR PADILLA antibiotic home per surgery Problems: Subjective 24 Hr Interval Summary Cardiovascular: no complaints Gastrointestinal: no complaints Genitourinary: No bleeding Exam/Review of Systems Vital Signs Vitals Vital Signs Date Time Temp Pulse Resp B/P Pulse Ox O2 Delivery O2 Flow Rate FiO2 07/24/16 08:06 98.0 86 18 142/68 97 Nasal Cannula 07/21/16 20:55 2.0 Intake and Output 07/23/16 07/23/16 07/24/16 15:00 23:00 07:00 Intake Total 540 ml 300 ml Output Total 900 ml 4 ml Balance -360 ml 296 ml Exam Neck: supple Respiratory: clear to auscultation Cardiovascular: regular rate and rhythm Gastrointestinal: soft Musculoskeletal: nl extremities to inspection Results Result Diagram: 07/22/16 0455 07/24/16 0425 Results 24 hrs Laboratory Tests Test 07/24/16 04:25 Alanine Aminotransferase (ALT/SGPT) 33 Albumin 2.0 L Albumin/Globulin Ratio 0.60 Alkaline Phosphatase 142 H Anion Gap 11 Aspartate Amino Transf (AST/SGOT) 44 Blood Urea Nitrogen 9 Calcium Level 7.5 L Carbon Dioxide Level 27 Chloride Level 101 Creatinine 0.70 Direct Bilirubin 1.10 #H Globulin 3.30 H Glucose Level 92 Indirect Bilirubin 2.5 H Potassium Level 3.7 Sodium Level 135 Total Bilirubin 3.6 #H Total Protein 5.3 L Medications Medications Current Medications Hydromorphone HCl (Dilaudid) 0.5 mg Q4H PRN IV PAIN Last administered on 03:56; Admin Dose 0.5 MG; Start 07/18/16 at 15:30 Folic Acid (Folic Acid) 1 mg DAILY PO Last administered on 07/24/16 08:04; Admin Dose 1 MG; Start 07/19/16 at 09:00 Furosemide (Lasix) 40 mg DAILY PO Last administered on 07/24/16 08:03; Admin Dose 40 MG; Start 07/19/16 at 09:00 Ondansetron HCl (Zofran Tab) 4 mg Q6H PRN PO NAUSEA AND/OR VOMITING; Start at 16:30 Spironolactone (Aldactone) 50 mg DAILY PO Last administered on 07/24/16 08:04 ; Admin Dose 50 MG; Start 07/19/16 at 09:00 Thiamine HCl 100 mg 100 mg DAILY PO Last administered on 07/24/16 08:00; Admin Dose 100 MG; Start 07/19/16 at 09:00 Potassium Chloride/Dextrose/ Sod Cl (D5-1/2ns + KCl 20 Meq) 1,000 ml @ 20 mls/ hr Q24H IV Last administered on 07/21/16 13:17; Admin Dose 20 MLS/HR; Start at 16:08 Ondansetron HCl (Zofran Inj) 4 mg Q6H PRN IV NAUSEA AND/OR VOMITING Last administered on 07/23/16 18:37; Admin Dose 4 MG; Start 07/18/16 at 16:30 Acetaminophen (Tylenol Tab) 650 mg Q6H PRN PO PAIN LEVEL 1-3 OR FEVER Last administered on 07/19/16 10:49; Admin Dose 650 MG; Start 07/18/16 at 16:30 Docusate Sodium (Colace) 100 mg Q12H PRN PO CONSTIPATION Last administered on 08:50; Admin Dose 100 MG; Start 07/18/16 at 16:30 Magnesium Hydroxide (Milk Of Mag) 30 ml DAILY PRN PO CONSTIPATION; Start at 16:30 Pantoprazole (Protonix Iv) 40 mg DAILY@06 IV Last administered on 07/24/16 05: 54; Admin Dose 40 MG; Start 07/19/16 at 06:00 Lactulose (Enulose) 20 gm Q8 PO Last administered on 07/24/16 05:54; Admin Dose 20 GM; Start 07/18/16 at 22:00 Levofloxacin (Levaquin) 500 mg DAILY PO Last administered on 2/25/17at 08:01; Admin Dose 500 MG; Start 07/18/16 at 17:00 Potassium Chloride (Klor-Con 20) 20 meq BID PO Last administered on 07/24/16 08:03; Admin Dose 20 MEQ; Start 07/19/16 at 09:00 Hydromorphone HCl (Dilaudid) 1 mg Q4H PRN IV PAIN Last administered on 07:53; Admin Dose 1 MG; Start 07/19/16 at 20:00 SHARIF KAPLAN MD Jul 24, 2016 11:24
--- NOTE | 2016-07-24 11:27 | PDOCDIS ---
Discharge Instructions CONDITION Patient Condition: Good HOME CARE INSTRUCTIONS: Diet Instructions: Low Fat /Cholesterol ACTIVITY: Activity Restrictions: Avoid heavy lifting FOLLOW UP/APPOINTMENTS Appointments see own pcp [address] lloyd [address] yusuf 1 wk SHARIF KAPLAN MD Jul 24, 2016 11:26
[2016-07-24] MEDS ORDERED: METR250T PO (11:28)
[2016-07-24] MEDS ORDERED: LEVO500T72 PO (11:28)
--- NOTE | 2016-07-24 11:51 | PN ---
Date/Time of Note Date/Time of Note DATE: 07/24/16 TIME: 11:50 Assessment/Plan Lines/Catheters IV Catheter Type (from [facility]): Saline Lock [facility] in Place (from [facility]): No Assessment/Plan Chief Complaint/Hosp Course 1. Abdominal pain with hyperbilirubinemia. DDx: decompensated Cirrhosis, Hepatic congestion, vs Cholecystitis, Cholelithiasis, Choledocholithiasis. s/p Abx -GI/Medical optimization -No surgical intervention per GI 2. Right inguinal hernia, asymptomatic. Will need optimization of his cirrhosis and ascites prior to even considering surgical repair because the patient is high risk for surgical comorbidity. 3. [id number] -local care -medical management -colorectal sx outpt f/u 4. Pancytopenia, probably secondary to liver disease and/or other etiology. We will defer to medical team for further workup and treatment. 5. Hypoalbuminemia is probably multifactorial as well. Continue medical management. 6. Hyperbilirubinemia secondary to liver disease. Defer to GI. 7. Hypertension. Continue diet and medication control and encourage weight optimization. 8. Hemorrhoids, small -local care -medical management 9. Morbid obesity with body mass index of 47. Patient is highly encouraged to optimize his diet and exercise to improve his overall health status. Thank you, Problems: Subjective 24 Hr Interval Summary Abdominal pain improved. No n/v. No f/c. No cp/sob. No cough. No navarro/dizzy/ visual or neuro changes. Drainage from buttock wound/fistula Exam/Review of Systems Vital Signs Vitals Vital Signs Date Time Temp Pulse Resp B/P Pulse Ox O2 Delivery O2 Flow Rate FiO2 07/24/16 08:06 98.0 86 18 142/68 97 Nasal Cannula 07/21/16 20:55 2.0 Intake and Output 07/23/16 07/23/16 07/24/16 15:00 23:00 07:00 Intake Total 540 ml 300 ml Output Total 900 ml 4 ml Balance -360 ml 296 ml Exam Free Text/Dictation GENERAL: No acute distress, obese. HEENT: Pupils equal, reactive. Icterus. Mucous membranes are moist. NECK: Supple. Minimal JVD. CHEST/PULMONARY: Normal respiratory effort. No wheezing. CARDIAC: S1, S2 present. ABDOMEN: Soft, obese, min tender. Right inguinal hernia that is reducible. Lower abdominal wall edema and erythema. EXTREMITIES: Minimal edema. VASCULAR: Capillary refill is 2 seconds. NEUROLOGIC: Alert, oriented, moves all 4 extremities grossly. RECTAL: Minimal hemorrhoids. Right buttock opening of fistula with dc SKIN: Jaundice. Results Result Diagram: 07/22/16 0455 07/24/16 0425 SHRUTHI VALDES MD Jul 24, 2016 11:51
[2016-07-24] MEDS: ONDANSETRON 4 MG INJ IV PRN (14:49)
[2016-07-24] MEDS: D5W-0.45 NACL + KCL 20 MEQ 1,000 ML IV SCH (16:08)
--- NOTE | 2016-07-24 16:14 | CONS ---
Date/Time of Note Date/Time of Note DATE: 07/24/16 TIME: 16:13 Assessment/Plan Assessment/Plan Chief Complaint/Hosp Course Mr. Tonny Tompkins is a 56-year-old male with multiple significant comorbidities. HIDA noted. 1. Abdominal pain better 2. Right inguinal hernia, asymptomatic. Will need optimization of his cirrhosis and ascites prior to even considering surgical repair because the patient is high risk for surgical comorbidity. 3. Morbid obesity with body mass index of 47. Patient is highly encouraged to optimize his diet and exercise to improve his overall health status. 4. Pancytopenia, probably secondary to liver disease 5. Hypoalbuminemia is probably multifactorial as well. 6. Hyperbilirubinemia secondary to liver disease. will monitor 7. Hypertension. 8.rectal pain from fistula Problems: Additional Assessment/Plan Problems: Additional Assessment/Plan IMPRESSION: 1. Cirrhosis of liver, hepatitis C with decompensation. 2. Ascites, status post paracentesis. 3. Anal fistula. 4. Thrombocytopenia. 5. Cholecystitis.asymptomatic PLAN: To continue diuretics, continue antibiotics, and will monitor LFTs closely, and surgical followup. alexandre [place] high risk for surgery f/u as op with O gastroenterology Consultation Date/Type/Reason Admit Date/Time Jul 18, 2016 at 05:37 Initial Consult Date 07/18/16 24 HR Interval Summary Free Text/Dictation rectal discomfort Exam/Review of Systems Vital Signs Vitals Vital Signs Date Time Temp Pulse Resp B/P Pulse Ox O2 Delivery O2 Flow Rate FiO2 07/24/16 08:06 98.0 86 18 142/68 97 Nasal Cannula 07/21/16 20:55 2.0 Intake and Output 07/23/16 07/23/16 07/24/16 15:00 23:00 07:00 Intake Total 540 ml 300 ml Output Total 900 ml 4 ml Balance -360 ml 296 ml Exam Constitutional: alert, oriented, well developed Psych: nl mood/affect, no complaints Head: atraumatic, normocephalic Eyes: EOMI, PERRL, nl conjunctiva, nl lids, nl sclera ENMT: nl external ears & nose, nl lips & teeth, nl nasal mucosa & septum Neck: non-tender, supple Respiratory: clear to auscultation, normal air movement Cardiovascular: nl pulses, regular rate and rhythm Gastrointestinal: nl liver, spleen, non-tender, soft Musculoskeletal: nl extremities to inspection, nl gait and stance Extremities: normal pulses Neurological: [employer] II-XII intact, nl mental status, nl speech, nl strength Skin: nl turgor, No rash or lesions Lymph: nl lymph nodes Results Result Diagram: 07/22/16 0455 07/24/16 0425 Results 24 hrs Laboratory Tests Test 07/24/16 04:25 Alanine Aminotransferase (ALT/SGPT) 33 Albumin 2.0 L Albumin/Globulin Ratio 0.60 Alkaline Phosphatase 142 H Anion Gap 11 Aspartate Amino Transf (AST/SGOT) 44 Blood Urea Nitrogen 9 Calcium Level 7.5 L Carbon Dioxide Level 27 Chloride Level 101 Creatinine 0.70 Direct Bilirubin 1.10 #H Globulin 3.30 H Glucose Level 92 Indirect Bilirubin 2.5 H Potassium Level 3.7 Sodium Level 135 Total Bilirubin 3.6 #H Total Protein 5.3 L Medications Medications Current Medications Hydromorphone HCl (Dilaudid) 0.5 mg Q4H PRN IV PAIN Last administered on 03:56; Admin Dose 0.5 MG; Start 07/18/16 at 15:30 Folic Acid (Folic Acid) 1 mg DAILY PO Last administered on 07/24/16 08:04; Admin Dose 1 MG; Start 07/19/16 at 09:00 Furosemide (Lasix) 40 mg DAILY PO Last administered on 07/24/16 08:03; Admin Dose 40 MG; Start 07/19/16 at 09:00 Ondansetron HCl (Zofran Tab) 4 mg Q6H PRN PO NAUSEA AND/OR VOMITING; Start at 16:30 Spironolactone (Aldactone) 50 mg DAILY PO Last administered on 07/24/16 08:04 ; Admin Dose 50 MG; Start 07/19/16 at 09:00 Thiamine HCl 100 mg 100 mg DAILY PO Last administered on 07/24/16 08:00; Admin Dose 100 MG; Start 07/19/16 at 09:00 Potassium Chloride/Dextrose/ Sod Cl (D5-1/2ns + KCl 20 Meq) 1,000 ml @ 20 mls/ hr Q24H IV Last administered on 07/21/16 13:17; Admin Dose 20 MLS/HR; Start at 16:08 Ondansetron HCl (Zofran Inj) 4 mg Q6H PRN IV NAUSEA AND/OR VOMITING Last administered on 07/24/16 14:49; Admin Dose 4 MG; Start 07/18/16 at 16:30 Acetaminophen (Tylenol Tab) 650 mg Q6H PRN PO PAIN LEVEL 1-3 OR FEVER Last administered on 07/19/16 10:49; Admin Dose 650 MG; Start 07/18/16 at 16:30 Docusate Sodium (Colace) 100 mg Q12H PRN PO CONSTIPATION Last administered on 08:50; Admin Dose 100 MG; Start 07/18/16 at 16:30 Magnesium Hydroxide (Milk Of Mag) 30 ml DAILY PRN PO CONSTIPATION; Start at 16:30 Pantoprazole (Protonix Iv) 40 mg DAILY@06 IV Last administered on 07/24/16 05: 54; Admin Dose 40 MG; Start 07/19/16 at 06:00 Lactulose (Enulose) 20 gm Q8 PO Last administered on 07/24/16 14:44; Admin Dose 20 GM; Start 07/18/16 at 22:00 Levofloxacin (Levaquin) 500 mg DAILY PO Last administered on 07/24/16 08:01; Admin Dose 500 MG; Start 07/18/16 at 17:00 Potassium Chloride (Klor-Con 20) 20 meq BID PO Last administered on 07/24/16 08:03; Admin Dose 20 MEQ; Start 07/19/16 at 09:00 Hydromorphone HCl (Dilaudid) 1 mg Q4H PRN IV PAIN Last administered on 07:53; Admin Dose 1 MG; Start 07/19/16 at 20:00 MAGO PADILLA MD Jul 24, 2016 16:14
[2016-07-25] MEDS ORDERED: TRAM-40 PO (14:06)
[2016-07-25] MEDS ORDERED: PROC5TAB9 PO (14:07)
[2016-07-25] MEDS ORDERED: ONDA4TAB8 PO (14:07)
== END 2016-07-24 19:00 | disposition home or self-care (01) | DRG 445 ==
LOC: E/R 02:43 → MS1 05:37
PROVIDERS: ADMIT Internal Medicine Nephrology; ATTEND Internal Medicine Nephrology
PROC: 0W9G3ZZ Drainage of Peritoneal Cavity, Percutaneous Approach (ICD-10-PCS; principal; 2016-07-19)
DX: K81.0 Acute cholecystitis (principal); E72.20 Disorder of urea cycle metabolism, unspecified; D61.818 Other pancytopenia; J90 Pleural effusion, not elsewhere classified; R18.8 Other ascites; Z68.42 Body mass index [BMI] 45.0-49.9, adult; D69.6 Thrombocytopenia, unspecified; K74.60 Unspecified cirrhosis of liver; K40.90 Unilateral inguinal hernia, without obstruction or gangrene, not specified as recurrent; K60.3 Anal fistula; K64.9 Unspecified hemorrhoids; D64.9 Anemia, unspecified; I10 Essential (primary) hypertension; E87.6 Hypokalemia; E66.01 Morbid (severe) obesity due to excess calories; E80.6 Other disorders of bilirubin metabolism; E88.09 Other disorders of plasma-protein metabolism, not elsewhere classified; R94.5 Abnormal results of liver function studies; Z88.0 Allergy status to penicillin; Z86.19 Personal history of other infectious and parasitic diseases; Z86.59 Personal history of other mental and behavioral disorders; Z88.3 Allergy status to other anti-infective agents
CPT/HCPCS: 36415; 71010; 74181; 76705; 78226; 80053; 81001; 81003; 82140; 83615; 83690; 84157; 84484; 85025; 85610; 86850; 86900; 86901; 87040; 87070; 87102; 87116; 89050; 90686; 93005; 96365; 96366; 96375; 96376; A9537; C9113; J1170; J1200; J2270; J2405; J2543; J3480; J7030; J7050

== ENCOUNTER 2016-07-25 12:32 | Emergency (ER) | payer OTHER ==
[~2016-07-25] VITALS: Ht 167.6 cm; Wt 109.1 kg
[~2016-07-25 12:32] MED LIST changes: +LEVO500T72 PO; +METR250T PO
[2016-07-25 12:38] VITALS: Ht 167.6 cm; Wt 109.1 kg
--- NOTE | 2016-07-25 13:39 | ERA ---
ER Documentation Chief Complaint Date/Time DATE: 07/25/16 TIME: 13:35 Chief Complaint BROUGHT IN VIA EMS DUE TO PREVIOUS SURGICAL SITE BLEED HPI This is a 56-year-old male who was previously discharged from this hospital last night with cirrhosis of the liver, ascites, history of paracentesis, perianal fistula, hypertension, anemia, hepatitis C, thrombocytopenia, right inguinal hernia. He says he was admitted to the hospital for gallbladder issues. He says he feels he was discharged too early. He said when he got home he felt okay but then woke up this morning and had a pool of blood in his diaper. The patient has a history of a anal fistula. He says that he has some mild discomfort there and there is some bright red blood from the wound that he has/fistula. He also underwent a paracentesis is complaining that he is having chronic ascites draining from his right lower quadrant where the needle was placed. He also has some mild erythema to the skin that he says been there ever since as well. He denies abdominal pain fever dizziness syncope chest pain ROS All systems reviewed and are negative except as per history of present illness. Medications Home Meds Active Scripts Potassium Chloride* (Klor-Con*) 20 Meq Tabsr, 20 MEQ PO DAILY for 28 Days, #30 TAB Prov:SHARIF KAPLAN MD 05/28/16 Furosemide (Lasix) 40 Mg Tab, 40 MG PO DAILY, #90 TAB Prov:UMAIR RITTER MD 03/23/16 Spironolactone* (Aldactone*) 25 Mg Tablet, 50 MG PO DAILY, #90 TAB Prov:UMAIR RITTER MD 03/23/16 Folic Acid* (Folic Acid*) 1 Mg Tablet, 1 MG PO DAILY, #90 TAB Prov:UMAIR RITTER MD 02/11/16 Reported Medications Prochlorperazine* (Prochlorperazine*) 5 Mg Tablet, 5 MG PO BID Y for NAUSEA, TAB 07/25/16 Ondansetron Hcl* (Zofran*) 4 Mg Tablet, 4 MG PO Q8 Y for NAUSEA AND/OR VOMITING , TAB 07/25/16 Tramadol Hcl* (Ultram*) 50 Mg Tablet, 50 MG PO Q6H Y for PAIN, TAB 07/25/16 Lactulose (Generlac) 10 Gm/15 Ml Solution, 30 ML PO TID 06/15/16 Thiamine* (Vitamin B-1*) 100 Mg Tablet, 100 MG PO DAILY, TAB 03/21/16 Discontinued Scripts Metronidazole* (Flagyl*) 250 Mg Tablet, 250 MG PO TID for 10 Days, TAB Prov:SHARIF KAPLAN MD 07/24/16 Levofloxacin* (Levaquin*) 500 Mg Tablet, 500 MG PO DAILY for 10 Days, TAB Prov:SHARIF KAPLAN MD 07/24/16 Ondansetron Hcl* (Ondansetron Hcl*) 4 Mg Tablet, 4 MG PO Q6H Y for NAUSEA AND/ OR VOMITING, #60 TAB Prov:UMAIR RITTER MD 03/23/16 Allergies Allergies: Coded Allergies: Penicillins (Verified Allergy, Unknown, 07/25/16) RASH clindamycin (Verified Allergy, Unknown, 07/25/16) Uncoded Allergies: PLATELETS (Adverse Reaction, Unknown, 05/18/16) Patient reports he requires benadryl prior to platelets transfusion due to reaction in the past (swelling of face). PMhx/Soc History of Surgery: Yes Anesthesia Reaction: No Hx Neurological Disorder: No Hx Respiratory Disorders: No Hx Cardiac Disorders: No Hx Psychiatric Problems: No Hx Miscellaneous Medical Probl: Yes (ascitis, ETOH abuse, sober x 1 year) Hx Alcohol Use: Yes (ETOH abuse, sober for a year) Hx Substance Use: No Hx Tobacco Use: No Smoking Status: Never smoker FmHx Family History: No coronary disease Physical Exam Vitals Vital Signs Date Time Temp Pulse Resp B/P Pulse Ox O2 Delivery O2 Flow Rate FiO2 07/25/16 12:38 98.5 80 18 138/75 98 Physical Exam Const: Well-developed, well-nourished Head: Atraumatic, normocephalic Eyes: Normal Conjunctiva, PERRLA, EOMI, normal sclera, no nystagmus ENT: Normal External Ears, Nose and Mouth, moist mucus membranes. Neck: Full range of motion. No meningismus, no lymphadenopathy. Resp: Clear to auscultation bilaterally, no wheezing, rhonchi, rales Cardio: Regular rate and rhythm, no murmurs, S1 S2 present Abd: Soft, mild tenderness in the right lower abdomen, mild distended with ascites. Normal bowel sounds, no guarding or rebound, no pulsitile abdominal masses or bruits Anal: There is a 1 cm open wound/fistula in the right diego-rectal area that has evidence of prior bleeding but there is no active bleeding now mild tenderness no sign of cellulitis or induration Skin: Right lower quadrant with some mild erythema to the skin resembles skin irritation from repetitive tape use, the patient has a 4 x 4 soaked and taped to his abdomen this area Back: No midline or flank tenderness Ext: No cyanosis, or edema, FROM x 4, normal inspection, neurovascularly intact x 4 Neur: Awake and alert, STR 5/5 x 4, sensation intact x 4, no focal findings, cerebellum intact Psych: Normal Mood and Affect Result Diagram: 07/25/16 1402 07/25/16 1402 Results 24 hrs Laboratory Tests Test 07/25/16 14:02 Activated Partial Thromboplast Time 40.9Sec Alanine Aminotransferase (ALT/SGPT) 32IU/L Albumin 2.6g/dl Albumin/Globulin Ratio 0.66 Alkaline Phosphatase 187IU/L Anion Gap 13 Aspartate Amino Transf (AST/SGOT) 48IU/L Basophils # 0.010^3/ul Basophils % 0.4% Blood Urea Nitrogen 9mg/dl Calcium Level 8.1mg/dl Carbon Dioxide Level 27mmol/L Chloride Level 97mmol/L Creatinine 0.81mg/dl Direct Bilirubin 0.80mg/dl Eosinophils # 0.010^3/ul Eosinophils % 0.6% Globulin 3.90g/dl Glucose Level 119mg/dl Hematocrit 31.7% Hemoglobin 10.8g/dl INR International Normalized Ratio 2.35 Indirect Bilirubin 2.7mg/dl Lymphocytes # 0.710^3/ul Lymphocytes % 14.8% Mean Corpuscular Hemoglobin 32.6pg Mean Corpuscular Hemoglobin Concent 34.1g/dl Mean Corpuscular Volume 95.8fl Mean Platelet Volume 10.7fl Monocytes # 0.510^3/ul Monocytes % 11.1% Neutrophils # 3.510^3/ul Neutrophils % 72.7% Nucleated Red Blood Cells # 0.010^3/ul Nucleated Red Blood Cells % 0.0/100WBC Platelet Count 5410^3/UL Potassium Level 3.3mmol/L Prothrombin Time 26.0Sec Prothrombin Time Ratio 2.0 Red Blood Count 3.3110^6/ul Red Cell Distribution Width 17.8% Sodium Level 134mmol/L Total Bilirubin 3.5mg/dl Total Protein 6.5g/dl White Blood Count 4.910^3/ul Current Medications Medications (Trade) Dose Ordered Sig/Ryan Route PRN Reason Start Time Stop Time Status Last Admin Dose Admin Iohexol 150 ml 150 ml STK-MED ONCE .ROUTE 07/25/16 14:15 07/25/16 14:16 DC Sodium Chloride (NS) 100 ml @ ud STK-MED ONCE .ROUTE 07/25/16 14:15 07/25/16 14:16 DC Procedures/MDM PROCEDURE: CT Abdomen and Pelvis with contrast. CLINICAL INDICATION: Anal fistula, bleeding TECHNIQUE: CT of the abdomen and pelvis was performed on a multi-detector scanner following the uncomplicated IV administration of 90 cc of Omnipaque 300. Coronal and sagittal images were reformatted from the axial data set. One or more of the following dose reduction techniques were used: automated exposure control, adjustment of the mA and/or kV according to patient size, use of iterative reconstruction technique. CTDI = 16.03 mGy. DLP = 1055.76 mGy- cm. COMPARISON: 05/20/2016 FINDINGS: No intravascular contrast is identified on the submitted images. Extravasated IV contrast material is seen within soft tissues of the left arm. CT abdomen: Mild to moderate left pleural effusion is noted. The heart size is normal, without pericardial effusion. The liver is cirrhotic. No gross evidence of focal hepatic mass is identified. Cholelithiasis is noted, without evidence for cholecystitis. Biliary tree and pancreas are unremarkable. Mild splenomegaly is noted measuring 13 cm. Adrenal glands and kidneys are unremarkable. No urolithiasis or obstructive uropathy is identified. The stomach is grossly unremarkable. There is no abdominal aortic aneurysm or dissection. There is no retroperitoneal lymphadenopathy. The akash hepatis region is clear. CT pelvis: Moderate to large amount of ascites is present. There is no bowel obstruction, free intraperitoneal air or abscess. The appendix is well visualized and normal. There is no diverticulosis, diverticulitis or colitis. Urinary bladder is grossly unremarkable. Fat and fluid-containing right inguinal/ scrotal hernia is seen, without incarceration. Fistula tract is again noted extending from right perianal region to medial right buttock, grossly unchanged in appearance when compared to the prior CT. The surrounding osseous structures are remarkable for degenerative spondylosis of the spine. No osteolytic or osteoblastic lesion is detected. IMPRESSION: 1. Extravasated IV contrast is identified within soft tissues of the left arm - continued monitoring of the left arm injection site is recommended to exclude complications of contrast extravasation. 2. The liver is cirrhotic, with signs of portal hypertension including moderate to large amount of ascites and mild splenomegaly. Findings are grossly unchanged when compared to the prior CT. 3. Mild to moderate left pleural effusion is noted, new when compared to the prior CT. 4. Cholelithiasis is seen without evidence for cholecystitis. 5. Fat and fluid-containing right inguinal/scrotal hernia is identified, without incarceration. 6. Fistula tract is again noted extending from the right perianal region to the medial right buttock, grossly unchanged in appearance when compared to the prior CT. RPTAT: HDWR .Ghanshyam Soares MD, MD Date Time Electronically viewed and signed by .Ghanshyam Soares MD, MD on 07/25/2016 15: 52 .R/ CC: SUJATHA DEE DO Patient's labs are unremarkable and consistent with baseline. The CT scan does not show any evidence of acute process. Spoke with Dr. Kaplan and informing the patient had had a fluid collection in the fistula and it probably burst and this is the gush of blood that he had this morning. There is no bleeding here anymore. The patient's labs are stable I will discharge home. The patient is already on Levaquin Flagyl. Devised him to return if it continues to bleed. He also can follow-up with surgery and GI Departure Diagnosis: Primary Impression: Fistula, anal Additional Impression: Lower GI bleed Condition: Stable SUJATHA DEE DO Jul 25, 2016 13:39
[2016-07-25] MEDS ORDERED: TRAM-40 PO (14:06)
[2016-07-25] MEDS ORDERED: ONDA4TAB8 PO (14:07)
[2016-07-25] MEDS ORDERED: PROC5TAB9 PO (14:07)
[2016-07-25 14:08] LABS: ABNORMAL IP MESSAGE 1; BASOPHILS % 0.4 % (0.0-2.0); EOSINOPHILS % 0.6 % (0.0-7.0); HEMATOCRIT 31.7 % (42.0-52.0); HEMOGLOBIN 10.8 g/dl (14.0-18.0); LYMPHOCYTES # 0.7 10^3/ul (0.8-2.9); LYMPHOCYTES % 14.8 % (15.0-51.0); MEAN CORPUSCULAR HEMOGLOBIN 32.6 pg (29.0-33.0); MEAN CORPUSCULAR HGB CONC 34.1 g/dl (32.0-37.0); MEAN CORPUSCULAR VOLUME 95.8 fl (82.0-101.0); MEAN PLATELET VOLUME 10.7 fl (7.4-10.4); MONOCYTE # 0.5 10^3/ul (0.3-0.9); MONOCYTES % 11.1 % (0.0-11.0); NEUTROPHIL # 3.5 10^3/ul (1.6-7.5); NEUTROPHILS % 72.7 % (39.0-77.0); PLATELET COUNT 54 10^3/UL (140-415); RED BLOOD COUNT 3.31 10^6/ul (4.70-6.10); RED CELL DISTRIBUTION WIDTH 17.8 % (11.5-14.5); WHITE BLOOD COUNT 4.9 10^3/ul (4.8-10.8)
[2016-07-25 14:15] LABS: ADD SCAN DIFF HOLD/SCAN
[2016-07-25] MEDS ORDERED: SOD CHLORIDE 0.9% 100 ML ONE (14:15)
[2016-07-25] MEDS ORDERED: IOHEXOL 300MG/ML 150 ML BTL ONE (14:15)
[2016-07-25 14:19] LABS: ALBUMIN 2.6 g/dl (3.3-4.9); INR 2.35
[2016-07-25 14:20] LABS: PARTIAL THROMBOPLASTIN TIME 40.9 Sec (25.0-35.0); POTASSIUM 3.3 mmol/L (3.5-5.1)
[2016-07-25 14:22] LABS: ALBUMIN/GLOBULIN RATIO 0.66; BILIRUBIN,DIRECT 0.8 mg/dl (0.00-0.20); BILIRUBIN,INDIRECT 2.7 mg/dl (0-1.1); BILIRUBIN,TOTAL 3.5 mg/dl (0.2-1.3); CREATININE 0.81 mg/dl (0.61-1.24); TOTAL PROTEIN 6.5 g/dl (6.1-8.1)
[2016-07-25 14:23] LABS: CALCIUM 8.1 mg/dl (8.4-10.2)
--- NOTE | 2016-07-25 15:53 | RADRPT ---
PROCEDURE: CT Abdomen and Pelvis with contrast. CLINICAL INDICATION: Anal fistula, bleeding TECHNIQUE: CT of the abdomen and pelvis was performed on a multi-detector scanner following the un complicated IV administration of 90 cc of Omnipaque 300. Coronal and sagittal images were reformatt ed from the axial data set. One or more of the following dose reduction techniques were used: autom ated exposure control, adjustment of the mA and/or kV according to patient size, use of iterative r econstruction technique. CTDI = 16.03 mGy. DLP = 1055.76 mGy-cm. COMPARISON: 05/20/2016 FINDINGS: No intravascular contrast is identified on the submitted images. Extravasated IV contrast material is seen within soft tissues of the left arm. CT abdomen: Mild to moderate left pleural effusion is noted. The heart size is normal, without pericardial effu andrew. The liver is cirrhotic. No gross evidence of focal hepatic mass is identified. Cholelithias is is noted, without evidence for cholecystitis. Biliary tree and pancreas are unremarkable. Mild splenomegaly is noted measuring 13 cm. Adrenal glands and kidneys are unremarkable. No urolithiasi s or obstructive uropathy is identified. The stomach is grossly unremarkable. There is no abdominal aortic aneurysm or dissection. There is no retroperitoneal lymphadenopathy. The akash hepatis region is clear. CT pelvis: Moderate to large amount of ascites is present. There is no bowel obstruction, free intraperitoneal air or abscess. The appendix is well visualized and normal. There is no diverticulosis, diverticu litis or colitis. Urinary bladder is grossly unremarkable. Fat and fluid-containing right inguinal /scrotal hernia is seen, without incarceration. Fistula tract is again noted extending from right pe rianal region to medial right buttock, grossly unchanged in appearance when compared to the prior CT . The surrounding osseous structures are remarkable for degenerative spondylosis of the spine. No ost eolytic or osteoblastic lesion is detected. IMPRESSION: 1. Extravasated IV contrast is identified within soft tissues of the left arm - continued monitorin g of the left arm injection site is recommended to exclude complications of contrast extravasation. 2. The liver is cirrhotic, with signs of portal hypertension including moderate to large amount of ascites and mild splenomegaly. Findings are grossly unchanged when compared to the prior CT. 3. Mild to moderate left pleural effusion is noted, new when compared to the prior CT. 4. Cholelithiasis is seen without evidence for cholecystitis. 5. Fat and fluid-containing right inguinal/scrotal hernia is identified, without incarceration. 6. Fistula tract is again noted extending from the right perianal region to the medial right buttoc k, grossly unchanged in appearance when compared to the prior CT. RPTAT: HDWR .Ghanshyam Soares MD, MD Date Time Electronically viewed and signed by .Ghanshyam Soares MD, on 07/25/2016 15:52 .R/
[2016-07-25 16:30] VITALS: BP 112/73; PULSE 82; RESP 17
--- NOTE | 2016-07-25 17:29 | EN ---
Date/Time of Note Date/Time of Note DATE: 07/25/16 TIME: 16:24 ER Progress Note Ultrasound Guided peripheral IV note: Indication: staff unable to establish IV , patient needed contrast cat scan: Left upper arm cleaned with chlorhexidine wipe. Ultrasound guidance was used to easily insert an 18 gauge extended angiocath into left basilic vein. Patient tolerated the procedure well. No complications. Good blood return, flushed well. Images saved in chart. JESSICA DELUCA DO Jul 25, 2016 17:29
== END 2016-07-25 17:40 | disposition home or self-care (01) ==
LOC: E/R 12:32
DX: K60.3 Anal fistula (principal); K92.2 Gastrointestinal hemorrhage, unspecified; I10 Essential (primary) hypertension
CPT/HCPCS: 36415; 74177; 80053; 85025; 85610; 85730; Q9967; Z7502; Z7610

== ENCOUNTER 2016-08-05 14:42 | Inpatient (IN) | payer OTHER ==
[~2016-08-05] VITALS: Ht 167.6 cm; Wt 93.0 kg
[~2016-08-05 14:42] MED LIST changes: -LEVO500T72 PO; -METR250T PO; +ONDA4TAB8 PO; -ONDA4TAB95 PO; +PROC5TAB9 PO; +TRAM-40 PO
--- NOTE | 2016-08-05 15:04 | RADRPT ---
PROCEDURE: XR Chest. CLINICAL INDICATION: Sepsis TECHNIQUE: Chest AP portable. COMPARISON: 07/18/2016 FINDINGS: The mediastinal structures are unremarkable. The heart is normal in size and configuration. There are low lung volumes. There is mild pulmonary venous hypertension. There is left basilar subsegmen roel atelectasis / patchy consolidation. There is right basilar subsegmental atelectasis. There is a possible left pleural effusion. The axial skeleton is unremarkable. IMPRESSION: Low lung volumes Mild pulmonary venous hypertension Left basilar subsegmental atelectasis / patchy consolidation Right basilar subsegmental atelectasis Possible left pleural effusion RPTAT: HGDB .Franklin Chacon MD, MD Date Time Electronically viewed and signed by .Franklin Chacon MD, on 08/05/2016 15:04 .B/
[2016-08-05 15:51] LABS: ADD SCAN DIFF NO
[2016-08-05 16:03] LABS: INR 2.54; PROTIME 27.7 Sec (12.2-14.2); PT RATIO 2.2
[2016-08-05 16:04] LABS: ALBUMIN 2.6 g/dl (3.3-4.9); CHLORIDE 85 mmol/L (97-110); PARTIAL THROMBOPLASTIN TIME 44.8 Sec (25.0-35.0)
[2016-08-05 16:05] LABS: POTASSIUM 3.5 mmol/L (3.5-5.1); SODIUM 128 mmol/L (135-144)
[2016-08-05 16:07] LABS: ANION GAP 17 (8-16); ASPARTATE AMINO TRANSFERASE 54 IU/L (15-46); BILIRUBIN,INDIRECT 2.1 mg/dl (0-1.1); BILIRUBIN,TOTAL 2.3 mg/dl (0.2-1.3); CARBON DIOXIDE 30 mmol/L (21-31); CREATININE 1.64 mg/dl (0.61-1.24); TOTAL PROTEIN 6.3 g/dl (6.1-8.1)
[2016-08-05 16:08] LABS: ALANINE AMINOTRANSFERASE 34 IU/L (13-69); ALKALINE PHOSPHATASE 178 IU/L (42-121); BLOOD UREA NITROGEN 15 mg/dl (7-20); CALCIUM 8.2 mg/dl (8.4-10.2); GLUCOSE 123 mg/dl (70-220)
[2016-08-05 16:09] LABS: ABNORMAL IP MESSAGE 1; HEMATOCRIT 27.4 % (42.0-52.0); HEMOGLOBIN 9.3 g/dl (14.0-18.0); LACTIC ACID 2.8 mmol/L (0.5-2.2); MEAN CORPUSCULAR HEMOGLOBIN 33.1 pg (29.0-33.0); MEAN CORPUSCULAR HGB CONC 33.9 g/dl (32.0-37.0); MEAN CORPUSCULAR VOLUME 97.5 fl (82.0-101.0); MEAN PLATELET VOLUME 9.9 fl (7.4-10.4); PLATELET COUNT 70 10^3/UL (140-415); RED BLOOD COUNT 2.81 10^6/ul (4.70-6.10); RED CELL DISTRIBUTION WIDTH 18.8 % (11.5-14.5); WHITE BLOOD COUNT 7.1 10^3/ul (4.8-10.8)
[2016-08-05 16:40] LABS: TROPONIN-I < 0.012 ng/ml (0.00-0.12)
[2016-08-05] MEDS ORDERED: VANCOMYCIN 1 GM (PMX) 250 ML IVPB SCH (17:00)
[2016-08-05] MEDS ORDERED: AZTREONAM 1 GM/NS (PMX) 50 ML IVPB ONE (17:00)
[2016-08-05 17:24] LABS: BASOPHIL # 0.1 10^3/ul (0.0-0.1); LYMPHOCYTES # 0.6 10^3/ul (0.8-2.9); MONOCYTE # 0.6 10^3/ul (0.3-0.9); NEUTROPHIL # 5.8 10^3/ul (1.6-7.5); PLATELET ESTIMATE PLT APPEAR DECREASED
[2016-08-05] MEDS ORDERED: LIDOCAINE 1% (MPF) 5 ML VIAL ONE (17:55)
[2016-08-05] MEDS ORDERED: ONDANSETRON 4 MG INJ IV PRN ×2 (18:00→22:30)
[2016-08-05] MEDS ORDERED: ACETAMINOPHEN 325 MG TAB PO PRN ×2 (18:00→22:30)
--- NOTE | 2016-08-05 19:05 | ERA ---
ER Documentation Chief Complaint Date/Time DATE: 08/05/16 TIME: 19:02 Chief Complaint ALOC HPI Patient is a 56-year-old male with cirrhosis who presents altered. Please note the history and physical exam is limited secondary to the patient's altered mental status. The patient has been more altered than usual over the past 1 week. He was brought in by ambulance. He was placed on hospice yesterday per the family. However the daughter does say that she wants the patient treatment in the hospital. Upon review of old medical records the patient has multiple visits to the ER for various complaints. His primary doctor is Dr. Schneider. ROS All systems reviewed and are negative except as per history of present illness. Medications Home Meds Active Scripts Potassium Chloride* (Klor-Con*) 20 Meq Tabsr, 20 MEQ PO DAILY for 28 Days, #30 TAB Prov:SHARIF KAPLAN MD 05/28/16 Furosemide (Lasix) 40 Mg Tab, 40 MG PO DAILY, #90 TAB Prov:UMAIR RITTER MD 03/23/16 Spironolactone* (Aldactone*) 25 Mg Tablet, 50 MG PO DAILY, #90 TAB Prov:UMAIR RITTER MD 03/23/16 Folic Acid* (Folic Acid*) 1 Mg Tablet, 1 MG PO DAILY, #90 TAB Prov:UMAIR RITTER MD 02/11/16 Reported Medications Prochlorperazine* (Prochlorperazine*) 5 Mg Tablet, 5 MG PO BID Y for NAUSEA, TAB 07/25/16 Ondansetron Hcl* (Zofran*) 4 Mg Tablet, 4 MG PO Q8 Y for NAUSEA AND/OR VOMITING , TAB 07/25/16 Tramadol Hcl* (Ultram*) 50 Mg Tablet, 50 MG PO Q6H Y for PAIN, TAB 07/25/16 Lactulose (Generlac) 10 Gm/15 Ml Solution, 30 ML PO TID 06/15/16 Thiamine* (Vitamin B-1*) 100 Mg Tablet, 100 MG PO DAILY, TAB 03/21/16 Allergies Allergies: Coded Allergies: Penicillins (Verified Allergy, Unknown, 08/05/16) RASH clindamycin (Verified Allergy, Unknown, 08/05/16) Uncoded Allergies: PLATELETS (Adverse Reaction, Unknown, 05/18/16) Patient reports he requires benadryl prior to platelets transfusion due to reaction in the past (swelling of face). PMhx/Soc History of Surgery: Yes Anesthesia Reaction: No Hx Neurological Disorder: No Hx Respiratory Disorders: No Hx Cardiac Disorders: No Hx Psychiatric Problems: No Hx Miscellaneous Medical Probl: Yes (ascitis, ETOH abuse, sober x 1 year) Hx Alcohol Use: Yes (ETOH abuse, sober for a year) Hx Substance Use: No Hx Tobacco Use: No FmHx Unable to obtain Physical Exam Vitals Vital Signs Date Time Temp Pulse Resp B/P Pulse Ox O2 Delivery O2 Flow Rate FiO2 08/05/16 15:54 88 13 135/86 97 Room Air 08/05/16 14:55 97.8 88 10 144/89 98 Room Air 08/05/16 14:55 97.8 88 10 144/89 98 Physical Exam Const: Chronically ill Head: Atraumatic Eyes: Normal Conjunctiva ENT: Normal External Ears, Nose and Mouth. Neck: Full range of motion..~ No meningismus. Resp: Decreased breath sounds bilaterally Cardio: Regular rate and rhythm, no murmurs Abd: Distended abdomen with positive fluid wave Skin: Jaundice Back: No midline or flank tenderness Ext: Bilateral lower extremity edema Neur: Awake but confused Result Diagram: 08/05/16 1500 08/05/16 1500 Results 24 hrs Laboratory Tests Test 08/05/16 15:00 08/05/16 16:47 Activated Partial Thromboplast Time 44.8Sec Alanine Aminotransferase (ALT/SGPT) 34IU/L Albumin 2.6g/dl Albumin/Globulin Ratio 0.70 Alkaline Phosphatase 178IU/L Ammonia 22umol/l Anion Gap 17 Aspartate Amino Transf (AST/SGOT) 54IU/L Basophils # 0.110^3/ul Basophils % 1.0% Blood Urea Nitrogen 15mg/dl Calcium Level 8.2mg/dl Carbon Dioxide Level 30mmol/L Chloride Level 85mmol/L Creatinine 1.64mg/dl Direct Bilirubin 0.20mg/dl Globulin 3.70g/dl Glucose Level 123mg/dl Hematocrit 27.4% Hemoglobin 9.3g/dl INR International Normalized Ratio 2.54 Indirect Bilirubin 2.1mg/dl Lactic Acid Level 2.8mmol/L 2.5mmol/L Lymphocytes # 0.610^3/ul Lymphocytes % 9.0% Mean Corpuscular Hemoglobin 33.1pg Mean Corpuscular Hemoglobin Concent 33.9g/dl Mean Corpuscular Volume 97.5fl Mean Platelet Volume 9.9fl Monocytes # 0.610^3/ul Monocytes % 8.0% Neutrophils # 5.810^3/ul Neutrophils % 82.0% Platelet Count 7010^3/UL Platelet Estimate PLT APPEAR DECREASED Potassium Level 3.5mmol/L Prothrombin Time 27.7Sec Prothrombin Time Ratio 2.2 Red Blood Count 2.8110^6/ul Red Cell Distribution Width 18.8% Sodium Level 128mmol/L Total Bilirubin 2.3mg/dl Total Protein 6.3g/dl Troponin I < 0.012ng/ml White Blood Count 7.110^3/ul Current Medications Medications (Trade) Dose Ordered Sig/Ryan Route PRN Reason Start Time Stop Time Status Last Admin Dose Admin Vancomycin HCl 250 ml @ 125 mls/hr ONCE IVPB 08/05/16 17:00 08/05/16 18:59 DC Aztreonam (Azactam 1gm/NS (Pmx)) 50 ml @ 100 mls/hr ONCE ONCE IVPB 08/05/16 17:00 08/05/16 17:29 DC Ondansetron HCl (Zofran Inj) 4 mg BRIDGE ORDER PRN IV NAUSEA AND/OR VOMITING 08/05/16 18:00 08/06/16 17:59 Acetaminophen (Tylenol Tab) 650 mg ER BRIDGE PRN PO MILD PAIN/FEVER 08/05/16 18:00 08/06/16 17:59 Lidocaine (Xylocaine 1% (Mpf)) 5 ml STK-MED ONCE .ROUTE 08/05/16 17:55 08/05/16 17:56 DC Procedures/MDM EKG read by me: Rate/Rhythm: Regular rate and rhythm at a normal rate Intervals: Normal Impression: No evidence of ischemia or arrhythmia Chest x-ray shows pneumonia per radiology. Admit MDM: Patient's infectious symptoms have not stabilized and the patient is at risk of rapid decompensation. The patient will be admitted for careful hydration, antibiotic therapy, and infectious source control. Severe Sepsis criteria: Infectious source: Pneumonia End organ damage indicated by: Lactate greater than 2 Sepsis Management: Time of recognition of sepsis: 1500 Within 3 hours of recognition: Blood cultures x 2 before broad-spectrum antibiotics: Yes 30 ml/kg NS bolus not given because the patient is extremely fluid overloaded with ascites and lower extremity edema Initial lactate 2.8 Repeat lactate 2.5 Time of recognition of septic shock: No septic shock Septic Shock Assessment: Any lactic acid > 4.0 No Persistent hypotension (SBP < 90 or 40 mmHg drop, MAP < 65) despite 30 mL/kg IV fluid bolus No Volume Re-assessment for Septic Shock (post 30 ml/kg bolus): No septic shock at this time Persistent Hypotension Treatment: Comfort care No Central line Not Required Vasopressor started Not required I considered further perfusion assessment with CVP measurement, SCVO2, bedside ultrasound volume assessment, passive leg raise, trial of further fluid bolus. And proceeded with broad spectrum antibiotics, and admission. Please note the patient is a hospice patient. Accepting Care Team Current data and ongoing care discussed. Admitting Physician: Dr. Kaplan as the patient has [facility] health insurance assessor(s): None Outstanding Data: Culture results Critical Care: Critical care time 35 minutes excluding all billable procedures Emergent fluid management while maintaining close respiratory support. Provision of immediate and broad-spectrum antibiotic therapy. Simultaneous assessment for possible sources in order to direct targeted therapy. Consideration for invasive and chemical support to prevent cardiopulmonary collapse. Departure Diagnosis: Primary Impression: Altered level of consciousness Additional Impressions: Pneumonia Qualified Code: J18.9 - Pneumonia due to infectious organism, unspecified laterality, unspecified part of lung Severe sepsis TELLO EDEN MD Aug 05, 2016 19:05
[2016-08-05 19:12] VITALS: TEMP 97.6
[2016-08-05] MEDS ORDERED: NALOXONE (0.4 MG/ML) INJ IV ONE (19:30)
[2016-08-05 21:05] VITALS: PULSE 75
[2016-08-05 21:47] VITALS: BP 136/62; RESP 16
[2016-08-05 22:00] VITALS: Ht 167.6 cm; Wt 93.0 kg
[2016-08-05] MEDS ORDERED: ONDANSETRON 4 MG TAB PO PRN (22:30)
[2016-08-05] MEDS ORDERED: traMADol 50 MG TAB PO PRN (22:30)
[2016-08-05] MEDS ORDERED: DOCUSATE SODIUM 100 MG CAP PO PRN (22:30)
[2016-08-05] MEDS ORDERED: PROCHLORPERAZINE 5 MG TAB PO PRN (22:30)
[2016-08-05] MEDS ORDERED: MAGNESIUM HYDROXIDE 30ML CUP PO PRN (22:30)
[2016-08-05] MEDS ORDERED: LEVOFLOXACIN 500MG/D5W (PMX) 100 ML IVPB SCH (22:30)
[2016-08-05] MEDS ORDERED: NACL 0.9% 3 ML SYG IV SCH (22:30)
[2016-08-05] MEDS: SOD CHLORIDE 0.9% 1,000 ML IV SCH (22:53)
[2016-08-06] MEDS: PANTOPRAZOLE 40 MG INJ IV SCH (06:04)
[2016-08-06] MEDS: FUROSEMIDE 40 MG TAB PO SCH (06:05)
[2016-08-06 07:25] VITALS: BP 118/62; RESP 16
[2016-08-06 07:29] LABS: ADD SCAN DIFF NO
[2016-08-06 07:33] LABS: ABNORMAL IP MESSAGE 1; BASOPHILS % 0.4 % (0.0-2.0); EOSINOPHILS # 0.1 10^3/ul (0.0-0.5); HEMATOCRIT 25.6 % (42.0-52.0); HEMOGLOBIN 8.9 g/dl (14.0-18.0); MEAN CORPUSCULAR HEMOGLOBIN 33.7 pg (29.0-33.0); MEAN CORPUSCULAR HGB CONC 34.8 g/dl (32.0-37.0); MEAN PLATELET VOLUME 9.7 fl (7.4-10.4); MONOCYTE # 0.4 10^3/ul (0.3-0.9); MONOCYTES % 8.2 % (0.0-11.0); NEUTROPHIL # 3.5 10^3/ul (1.6-7.5); PLATELET COUNT 56 10^3/UL (140-415); RED BLOOD COUNT 2.64 10^6/ul (4.70-6.10); RED CELL DISTRIBUTION WIDTH 18.3 % (11.5-14.5)
[2016-08-06 07:44] LABS: ALBUMIN 2.2 g/dl (3.3-4.9)
[2016-08-06 07:45] LABS: POTASSIUM 3.1 mmol/L (3.5-5.1)
[2016-08-06 07:47] LABS: ALBUMIN/GLOBULIN RATIO 0.66; BILIRUBIN,INDIRECT 1.7 mg/dl (0-1.1); BILIRUBIN,TOTAL 1.7 mg/dl (0.2-1.3); CREATININE 1.43 mg/dl (0.61-1.24); TOTAL PROTEIN 5.5 g/dl (6.1-8.1)
[2016-08-06 07:48] LABS: CALCIUM 7.8 mg/dl (8.4-10.2)
[2016-08-06] MEDS: SPIRONOLACTONE 25 MG TAB PO SCH (08:12)
[2016-08-06] MEDS: POTASSIUM CHLORIDE (SR) 20 MEQ TAB PO SCH (08:13)
[2016-08-06] MEDS: THIAMINE 100 MG TAB PO SCH (08:13)
[2016-08-06] MEDS: FOLIC ACID 1 MG TAB PO SCH (08:13)
--- NOTE | 2016-08-06 09:09 | RADRPT ---
PROCEDURE: Ultrasound guided paracentesis. CLINICAL INDICATION: Ascites and shortness of breath. COMPARISON: 07/19/2016. TECHNIQUE: The risks, benefits, and alternatives were explained to the patient and/or the patient's family, inc luding but not limited to bleeding, infection, pain, visceral or vascular damage, shock, and . The patient and/or the patient's family understood the risks and the alternatives and wished to pro ceed with the procedure. Informed written consent was obtained. A procedural time out was performed . The patient's name, date of , and procedure to be performed were verified. Utilizing ultrasound guidance, optimal location for entry to the peritoneal cavity was ascertained. The overlying skin was prepped and draped in the usual sterile fashion. Approximately 10 ml of 1% Xylocaine was injected locally for pain control. Using ultrasound guidance, an 8 British catheter wa s introduced into the peritoneal cavity in the right lower quadrant without difficulty. FINDINGS: Initial images demonstrate ascites. Approximately 8.2 liters of serous fluid was aspirated and disc arded. The patient tolerated the procedure well without complication. IMPRESSION: 1. Successful ultrasound-guided paracentesis. RPTAT: QQ .Carter Arenas MD, Date Time Electronically viewed and signed by .Carter Arenas MD, on 08/06/2016 09:09 .R/
[2016-08-06] MEDS ORDERED: POTASSIUM CHLORIDE 250 ML IVPB ONE (11:00)
--- NOTE | 2016-08-06 18:00 | QN ---
Documentation Comment [id number] SHARIF KAPLAN MD Aug 06, 2016 18:00
--- NOTE | 2016-08-06 20:05 | HP ---
DATE OF ADMISSION: 08/05/2016 HISTORY OF PRESENT ILLNESS: Tonny Tompkins is a 56-year-old male who was recently discharged from this hospital. Please see note for detailed history. With a history of cholecystitis. The patien t has cirrhosis of liver and anasarca. The patient has a right inguinal hernia, pancytopenia, hyper bilirubinemia, hypertension. The patient has an anal fistula, anemia, history of blood transfusion, history of ascites, paracentesis, electrolyte imbalance, thrombocytopenia, abnormal LFT. Presented . The patient was recently enrolled in hospice care. Has not fully signed the papers. The patient presented not feeling good, anasarca, abdominal pain. The patient's case was discussed with the lewis ching's family. The patient is being admitted for further management. PAST MEDICAL HISTORY: As mentioned above, cirrhosis of the liver, ascites, anemia, GI bleed, histor y of rectal fistula, and history of cholecystitis. ALLERGY 1. PENICILLIN. 2. CLINDAMYCIN. SOCIAL HISTORY: Negative at this point. MEDICATION HISTORY: Includes the patient at home is on 1. Folic acid. 2. Furosemide. 3. Lactulose. 4. Zofran. 5. Potassium. 6. Aldactone. 7. Thiamine. 8. Tramadol. REVIEW OF SYSTEMS HEENT: Unremarkable. RESPIRATORY: Unremarkable. CARDIOVASCULAR: Complaining of generalized weakness. ABDOMEN: Ascites. EXTREMITIES: Swelling positive. CENTRAL NERVOUS SYSTEM: Unremarkable. PHYSICAL EXAMINATION: GENERAL: The patient is a mildly edematous looking male. Pale, icteric. VITAL SIGNS: Pulse 77, blood pressure 136/62. HEAD: Atraumatic, normocephalic. Pupils are equal, reactive. NECK: Supple, no JVD. LUNGS: Clear with decreased air entry both bases. CARDIOVASCULAR: S1, S2 normal. ABDOMEN: Soft. SKIN: Distended. Bowel sounds present. No palpable mass. EXTREMITIES: No cyanosis, clubbing. Edema positive. The patient has scrotal edema also noted. LABORATORY DATA: Hematocrit 25.6. Patient has sodium 128, potassium 3.1. IMPRESSION: 1. Anasarca and ascites. 2. Hypokalemia. 3. Pancytopenia. 4. Cirrhosis. 5. History of cholecystitis 6. History of anal fistula. 7. Patient on hospice. PLAN: 1. To continue to give this patient's home medication. Patient is on a. Potassium chloride. b. Folic acid. c. Aldactone d. Thiamine. e. Furosemide. f. Protonix. 2. The patient will benefit from paracentesis. 3. Hospice will be restarted when the patient goes home. Dictated By: SHARIF KAPLAN MD BS/NTS Conf#: [id number] DID#: [id number]
[2016-08-06 20:52] VITALS: BP 102/61; RESP 18
[2016-08-06] MEDS: SOD CHLORIDE 0.9% 1,000 ML IV SCH (22:24)
[2016-08-07] MEDS: PANTOPRAZOLE 40 MG INJ IV SCH (05:37)
[2016-08-07] MEDS: FUROSEMIDE 40 MG TAB PO SCH (05:38)
[2016-08-07 06:28] LABS: POTASSIUM 3.6 mmol/L (3.5-5.1)
[2016-08-07 06:30] LABS: CREATININE 1.28 mg/dl (0.61-1.24)
[2016-08-07 06:31] LABS: CALCIUM 7.7 mg/dl (8.4-10.2)
[2016-08-07 08:25] VITALS: RESP 14
[2016-08-07 09:00] VITALS: BP 98/52
[2016-08-07] MEDS: SPIRONOLACTONE 25 MG TAB PO SCH (09:00)
[2016-08-07] MEDS: FOLIC ACID 1 MG TAB PO SCH (09:15)
[2016-08-07] MEDS: POTASSIUM CHLORIDE (SR) 20 MEQ TAB PO SCH (09:15)
[2016-08-07] MEDS: THIAMINE 100 MG TAB PO SCH (09:15)
== END 2016-08-07 14:35 | disposition home health service (06) | DRG 432 ==
LOC: E/R 14:42 → PP2 17:50
PROVIDERS: ADMIT Internal Medicine Nephrology; ATTEND Internal Medicine Nephrology
PROC: 0W9G3ZZ Drainage of Peritoneal Cavity, Percutaneous Approach (ICD-10-PCS; principal; 2016-08-05)
DX: K74.60 Unspecified cirrhosis of liver (principal); J18.9 Pneumonia, unspecified organism; D61.818 Other pancytopenia; R18.8 Other ascites; F10.21 Alcohol dependence, in remission; E87.6 Hypokalemia; R60.1 Generalized edema
CPT/HCPCS: 71010; 80048; 80053; 82140; 83605; 84484; 85025; 85610; 85730; 87040; 93005; 96374; C9113; J1956; J2405; J3370; J3480; J7030

== ENCOUNTER 2016-08-26 10:19 | Inpatient (IN) | payer OTHER ==
[~2016-08-26] VITALS: Ht 167.6 cm; Wt 114.0 kg
[2016-08-26] MEDS ORDERED: VANCOMYCIN 750 MG in SOD CHLORIDE 0.9% 150 ML IVPB ONE (10:30)
[2016-08-26 11:05] LABS: ADD SCAN DIFF NO
[2016-08-26 11:10] LABS: ABNORMAL IP MESSAGE 1; BASOPHILS % 0.2 % (0.0-2.0); EOSINOPHILS # 0.1 10^3/ul (0.0-0.5); EOSINOPHILS % 1.4 % (0.0-7.0); HEMATOCRIT 23.4 % (42.0-52.0); HEMOGLOBIN 8.3 g/dl (14.0-18.0); LYMPHOCYTES # 1.1 10^3/ul (0.8-2.9); LYMPHOCYTES % 22.7 % (15.0-51.0); MEAN CORPUSCULAR HEMOGLOBIN 34.9 pg (29.0-33.0); MEAN CORPUSCULAR HGB CONC 35.5 g/dl (32.0-37.0); MEAN CORPUSCULAR VOLUME 98.3 fl (82.0-101.0); MEAN PLATELET VOLUME 9.4 fl (7.4-10.4); MONOCYTE # 0.4 10^3/ul (0.3-0.9); MONOCYTES % 8.4 % (0.0-11.0); NEUTROPHIL # 3.3 10^3/ul (1.6-7.5); NEUTROPHILS % 66.9 % (39.0-77.0); PLATELET COUNT 69 10^3/UL (140-415); RED BLOOD COUNT 2.38 10^6/ul (4.70-6.10); RED CELL DISTRIBUTION WIDTH 17.2 % (11.5-14.5); WHITE BLOOD COUNT 4.9 10^3/ul (4.8-10.8)
[2016-08-26 11:17] LABS: ALBUMIN 2.5 g/dl (3.3-4.9); INR 2.09; POTASSIUM 3.9 mmol/L (3.5-5.1); PROTIME 23.7 Sec (12.2-14.2); PT RATIO 1.9
[2016-08-26 11:20] LABS: ALBUMIN/GLOBULIN RATIO 0.64; BILIRUBIN,DIRECT 1.7 mg/dl (0.00-0.20); BILIRUBIN,INDIRECT 4.4 mg/dl (0-1.1); BILIRUBIN,TOTAL 6.1 mg/dl (0.2-1.3); CALCIUM 8.6 mg/dl (8.4-10.2); CREATININE 1.48 mg/dl (0.61-1.24); TOTAL PROTEIN 6.4 g/dl (6.1-8.1)
--- NOTE | 2016-08-26 11:20 | RADRPT ---
PROCEDURE: Chest Radiograph. CLINICAL INDICATION: Shortness of breath. TECHNIQUE: Single frontal chest radiograph. COMPARISON: Chest radiograph 08/05/2016 FINDINGS: The patient is rotated. There is worsening opacification of the left hemithorax consistent with wor sening left pleural effusion and adjacent atelectasis. There is questionable mediastinal shift to t he right which may be in part due to patient rotation . The right lung is grossly clear. The card iomediastinal silhouette is poorly evaluated. The bones are intact. IMPRESSION: 1. [id number] left pleural effusion with adjacent atelectasis, worsened compared to 08/06/19 17. There is questionable mediastinal shift to the right which may in part be due to patient rotati on. RPTAT: KK .August Keane MD, Date Time Electronically viewed and signed by .August Keane MD, on 08/26/2016 11:20 .B/
--- NOTE | 2016-08-26 11:37 | ERA ---
ER Documentation Chief Complaint Date/Time DATE: 08/26/16 TIME: 11:34 Chief Complaint BIB RA FOR EVAL OF SOB. PT WITH HX OF LIVER CHIRROSIS ASCITES HPI 56-year-old male presents to the emergency department by ambulance from home for evaluation of shortness of breath. Patient has a long-standing history of cirrhosis and end-stage liver disease. He is on hospice with home health care. However, the healthcare nurse was not at the home today. Patient had an episode of shortness of breath and the paramedics were called. Family has noted that the lower extremities are becoming more edematous and swollen and red recently. Patient has had no known fevers. Patient has had no obvious confusion. I have reviewed the book solicitor pre-hospital care. Pre-hospital vital signs were reviewed. Pre-hospital diagnostic tests were reviewed. Upon arrival, patient has no specific complaints at this time. ROS All systems reviewed and are negative except as per history of present illness. Medications Home Meds Active Scripts Potassium Chloride* (Klor-Con*) 20 Meq Tabsr, 20 MEQ PO DAILY for 28 Days, #30 TAB Prov:SHARIF KAPLAN MD 05/28/16 Furosemide (Lasix) 40 Mg Tab, 40 MG PO DAILY, #90 TAB Prov:UMAIR RITTER MD 03/23/16 Spironolactone* (Aldactone*) 25 Mg Tablet, 50 MG PO DAILY, #90 TAB Prov:UMAIR RITTER MD 03/23/16 Folic Acid* (Folic Acid*) 1 Mg Tablet, 1 MG PO DAILY, #90 TAB Prov:UMAIR RITTER MD 02/11/16 Reported Medications Prochlorperazine* (Prochlorperazine*) 5 Mg Tablet, 5 MG PO BID Y for NAUSEA, TAB 07/25/16 Ondansetron Hcl* (Zofran*) 4 Mg Tablet, 4 MG PO Q8 Y for NAUSEA AND/OR VOMITING , TAB 07/25/16 Tramadol Hcl* (Ultram*) 50 Mg Tablet, 50 MG PO Q6H Y for PAIN, TAB 07/25/16 Lactulose (Generlac) 10 Gm/15 Ml Solution, 30 ML PO TID 06/15/16 Thiamine* (Vitamin B-1*) 100 Mg Tablet, 100 MG PO DAILY, TAB 03/21/16 Allergies Allergies: Coded Allergies: Penicillins (Verified Allergy, Unknown, 08/05/16) RASH clindamycin (Verified Allergy, Unknown, 08/05/16) PMhx/Soc History of Surgery: Yes (RECTAL FISTULA) Anesthesia Reaction: No Hx Neurological Disorder: Yes (ALOC) Hx Respiratory Disorders: No Hx Cardiac Disorders: No Hx Psychiatric Problems: No Hx Miscellaneous Medical Probl: Yes (LIVER CHROSSIS.) Hx Alcohol Use: Yes Hx Substance Use: Yes Hx Tobacco Use: No Smoking Status: Never smoker FmHx Noncontributory for chief complaint with supportive family at bedside. Physical Exam Vitals Vital Signs Date Time Temp Pulse Resp B/P Pulse Ox O2 Delivery O2 Flow Rate FiO2 08/26/16 10:40 97.3 72 18 118/67 99 Physical Exam Const: [] Head: Atraumatic Eyes: Normal Conjunctiva ENT: Normal External Ears, Nose and Mouth. Neck: Full range of motion..~ No meningismus. Resp: Clear to auscultation bilaterally Cardio: Regular rate and rhythm, no murmurs Abd: Soft, non tender, non distended. Normal bowel sounds Skin: No petechiae or rashes Back: No midline or flank tenderness Ext: No cyanosis, or edema Neur: Awake and alert Psych: Normal Mood and Affect Result Diagram: 08/26/16 1035 08/26/16 1035 Results 24 hrs Laboratory Tests Test 08/26/16 10:35 White Blood Count 4.910^3/ul Red Blood Count 2.3810^6/ul Hemoglobin 8.3g/dl Hematocrit 23.4% Mean Corpuscular Volume 98.3fl Mean Corpuscular Hemoglobin 34.9pg Mean Corpuscular Hemoglobin Concent 35.5g/dl Red Cell Distribution Width 17.2% Platelet Count 6910^3/UL Mean Platelet Volume 9.4fl Neutrophils % 66.9% Lymphocytes % 22.7% Monocytes % 8.4% Eosinophils % 1.4% Basophils % 0.2% Nucleated Red Blood Cells % 0.0/100WBC Neutrophils # 3.310^3/ul Lymphocytes # 1.110^3/ul Monocytes # 0.410^3/ul Eosinophils # 0.110^3/ul Basophils # 0.010^3/ul Nucleated Red Blood Cells # 0.010^3/ul Prothrombin Time 23.7Sec Prothrombin Time Ratio 1.9 INR International Normalized Ratio 2.09 Sodium Level 123mmol/L Potassium Level 3.9mmol/L Chloride Level 86mmol/L Carbon Dioxide Level 27mmol/L Anion Gap 14 Blood Urea Nitrogen 21mg/dl Creatinine 1.48mg/dl Glucose Level 98mg/dl Lactic Acid Level 1.9mmol/L Calcium Level 8.6mg/dl Total Bilirubin 6.1mg/dl Direct Bilirubin 1.70mg/dl Indirect Bilirubin 4.4mg/dl Aspartate Amino Transf (AST/SGOT) 64IU/L Alanine Aminotransferase (ALT/SGPT) 36IU/L Alkaline Phosphatase 187IU/L Ammonia 47umol/l Total Protein 6.4g/dl Albumin 2.5g/dl Globulin 3.90g/dl Albumin/Globulin Ratio 0.64 Lipase 65U/L Current Medications Medications (Trade) Dose Ordered Sig/Ryan Route PRN Reason Start Time Stop Time Status Last Admin Dose Admin Vancomycin HCl/ Sodium Chloride (Vancocin/NS) 150 ml @ 75 mls/hr ONCE ONCE IVPB 08/26/16 10:30 08/26/16 12:29 Procedures/MDM Patient was taken to a room, seen and evaluated. Comfort measures were initiated. Diagnostic tests were ordered and reviewed. 3 LEAD RHYTHM STRIP: Normal sinus rhythm without ectopy EK lead EKG reviewed by myself: Normal Sinus Rhythm Low voltages Nonspecific ST and T-wave changes Impression: Nonspecific EKG RADIOLOGY: reviewed with the radiologist CONSULTATION: Dr. Kaplan was notified for admission REEVALUATION: 56-year-old male with a history of cirrhosis presents to the emergency department with shortness of breath. Patient has clear evidence of fluid overload on his lungs but is maintaining saturations without need for respiratory support at this time. Patient has evidence of cellulitis, and has required IV antibiotics. Given his comorbid conditions with the infection, patient will require admission to the hospital. Overall, patient is DNR/DNI and may be on hospice according to the family. I am waiting for further family to come to the hospital to confirm this. Patient will be maintained on comfort measures with the antibiotics until such time as I can clarify this with the family and initiate further interventions if necessary. MEDICAL DECISION MAKING: default value Departure Diagnosis: Primary Impression: Liver failure Additional Impression: Cellulitis Condition: Serious ANDRZEJYOVANI Aug 26, 2016 11:37
[2016-08-26 11:45] LABS: ADD UMIC YES; URINE BILIRUBIN (Dip) 1+ (NEGATIVE); URINE BLOOD (Dip) NEGATIVE (NEGATIVE); URINE COLOR YELLOW (YELLOW); URINE GLUCOSE (Dip) NEGATIVE (NEGATIVE); URINE KETONES (Dip) NEGATIVE (NEGATIVE); URINE LEUKOCYTE ESTERASE (Dip) TRACE (NEGATIVE); URINE NITRITE (Dip) NEGATIVE (NEGATIVE); URINE TOTAL PROTEIN (Dip) NEGATIVE (NEGATIVE); URINE UROBILINOGEN (Dip) 4.0 E.U./dL (0.1-1.0)
[2016-08-26 11:54] LABS: ICTOTEST POSITIVE (NEGATIVE)
[2016-08-26 11:56] LABS: URINE RBCS 0-2 /HPF (0)
[2016-08-26] MEDS ORDERED: morphine 2 MG INJ IV ONE (12:00)
[2016-08-26 12:48] VITALS: TEMP 97.5
[2016-08-26 14:17] VITALS: Ht 167.6 cm; Wt 114.0 kg
[2016-08-26] MEDS ORDERED: BISACODYL (EC) 5 MG TAB PO PRN (18:00)
[2016-08-26] MEDS ORDERED: PROCHLORPERAZINE 5 MG TAB PO PRN (18:00)
[2016-08-26] MEDS ORDERED: NACL 0.9% 3 ML SYG IV SCH (18:00)
[2016-08-26] MEDS ORDERED: ONDANSETRON 4 MG INJ IV PRN (18:00)
[2016-08-26] MEDS ORDERED: MAGNESIUM HYDROXIDE 30ML CUP PO PRN (18:00)
[2016-08-26] MEDS ORDERED: DOCUSATE SODIUM 100 MG CAP PO PRN (18:00)
--- NOTE | 2016-08-26 20:20 | QN ---
Documentation Comment [id number] SHARIF KAPLAN MD Aug 26, 2016 20:20
[2016-08-26 20:48] VITALS: BP 117/62; RESP 18
[2016-08-26] MEDS: LACTULOSE 30ML CUP PO SCH (22:22)
--- NOTE | 2016-08-26 22:26 | HP ---
DATE OF ADMISSION: 08/26/2016 HISTORY OF PRESENT ILLNESS: Tonny Tompkins is a 56-year-old male who has a history of cirrhosis of the liver, ascites. The patient has a history of GI bleed, history of rectal fistula. The patient is known DNR, but patient has been getting edematous. The patient was brought in by the patient's family member for more care since the patient has lower extremity edema and also anasarca as well as short of breath. The patient is going to be monitored. PAST MEDICAL HISTORY: Positive for history of cholecystitis, cirrhosis, anasarca, inguinal hernia, pancytopenia, hypertension, history of anal fistula, anemia, history of blood transfusion, history of paracentesis, history of ascites, history of thrombocytopenia, history of abnormal LFT. ALLERGIES: 1. PENICILLIN. 2. CLINDAMYCIN. SOCIAL HISTORY: Negative. MEDICATION HISTORY: At home, the patient is on: 1. Folic acid. 2. Lasix. 3. Lactulose. 4. Thiamine. Currently patient is on gettin. Folic acid. 2. Furosemide. 3. Thiamine. 4. Protonix. 5. The patient is also on hydrocodone. REVIEW OF SYSTEMS: HEENT: Unremarkable. RESPIRATORY: No shortness of breath. CARDIOVASCULAR: No chest pain, no palpation. ABDOMEN: Increasing abdominal size. EXTREMITIES: Increasing lower extremity edema and redness. PHYSICAL EXAMINATION: GENERAL: The patient a pale jaundice-looking male. VITAL SIGNS: Pulse 73, blood pressure 117/64. HEENT: Head is atraumatic, normocephalic. Pale conjunctivae, icterus positive. NECK: Supple. LUNGS: Clear. CARDIOVASCULAR: S1, S2 normal. ABDOMEN: Distended. Bowel sounds positive. Ascites appreciated. EXTREMITIES: No cyanosis, clubbing. Edema positive 3+. The patient has redness of both lower extremities. LABORATORY DATA: Sodium 123, potassium 3.9, BUN 21, creatinine 1.48. Hematocrit 23.4. IMAGING: The patient's chest x-ray shows moderate to large left pleural effusion. IMPRESSION: The patient has: 1. Anasarca. 2. Chronic kidney disease. 3. Anemia. 4. Thrombocytopenia. 5. Lower extremity edema with mild cellulitis. 6. Hypoalbuminemia. PLAN: Continue low-salt diet, diuretic. The patient will have Levaquin ordered. Lactulose will be continued. Orders were done. THE PATIENT IS DNR and was in hospice before. Dictated By: SHARIF KAPLAN MD BS/MARIE Conf#: [id number] DID#: [id number]
[2016-08-27] MEDS: morphine 2 MG INJ IV PRN ×3 (01:49→19:50)
[2016-08-27 05:51] LABS: ADD SCAN DIFF NO
[2016-08-27 06:06] LABS: ABNORMAL IP MESSAGE 1; BASOPHILS % 0.2 % (0.0-2.0); EOSINOPHILS # 0.1 10^3/ul (0.0-0.5); EOSINOPHILS % 2.8 % (0.0-7.0); HEMATOCRIT 22.3 % (42.0-52.0); HEMOGLOBIN 7.8 g/dl (14.0-18.0); LYMPHOCYTES # 1.1 10^3/ul (0.8-2.9); LYMPHOCYTES % 24.8 % (15.0-51.0); MEAN CORPUSCULAR HEMOGLOBIN 34.5 pg (29.0-33.0); MEAN CORPUSCULAR VOLUME 98.7 fl (82.0-101.0); MEAN PLATELET VOLUME 9.4 fl (7.4-10.4); MONOCYTE # 0.4 10^3/ul (0.3-0.9); MONOCYTES % 8.7 % (0.0-11.0); NEUTROPHIL # 2.8 10^3/ul (1.6-7.5); NEUTROPHILS % 63.5 % (39.0-77.0); RED BLOOD COUNT 2.26 10^6/ul (4.70-6.10); RED CELL DISTRIBUTION WIDTH 17.4 % (11.5-14.5); WHITE BLOOD COUNT 4.4 10^3/ul (4.8-10.8)
[2016-08-27 06:11] LABS: ALBUMIN 2.2 g/dl (3.3-4.9)
[2016-08-27 06:12] LABS: POTASSIUM 3.9 mmol/L (3.5-5.1)
[2016-08-27 06:14] LABS: ALBUMIN/GLOBULIN RATIO 0.61; BILIRUBIN,INDIRECT 4.2 mg/dl (0-1.1); BILIRUBIN,TOTAL 6.2 mg/dl (0.2-1.3); CREATININE 1.15 mg/dl (0.61-1.24); TOTAL PROTEIN 5.8 g/dl (6.1-8.1)
[2016-08-27 06:15] LABS: CALCIUM 8.3 mg/dl (8.4-10.2)
[2016-08-27] MEDS: LEVOFLOXACIN 500 MG TAB PO SCH (06:27)
[2016-08-27] MEDS: PANTOPRAZOLE 40 MG INJ IV SCH (06:27)
[2016-08-27] MEDS: FUROSEMIDE 40 MG INJ IV SCH ×2 (06:28→18:00)
[2016-08-27 06:31] LABS: PLATELET COUNT 57 10^3/UL (140-415)
[2016-08-27 07:30] VITALS: BP 104/54; RESP 16
[2016-08-27] MEDS: THIAMINE 100 MG TAB PO SCH ×2 (09:00→12:17)
[2016-08-27] MEDS: LACTULOSE 30ML CUP PO SCH ×3 (09:00→22:23)
[2016-08-27] MEDS: FOLIC ACID 1 MG TAB PO SCH ×2 (09:00→12:17)
[2016-08-27] MEDS ORDERED: FUROSEMIDE 40 MG TAB PO SCH (09:00)
[2016-08-27] MEDS: ALBUMIN HUMAN 25% 50 ML IV SCH (12:16)
[2016-08-27] MEDS ORDERED: DIPHENHYDRAMINE 50 MG INJ IV ONE (13:45)
[2016-08-27] MEDS: ACETAMINOPHEN 325 MG TAB PO PRN (13:50)
--- NOTE | 2016-08-27 15:06 | PN ---
Date/Time of Note Date/Time of Note DATE: 08/27/16 TIME: 15:05 Assessment/Plan VTE Prophylaxis VTE Prophylaxis Intervention: ambulation Lines/Catheters IV C[facility] (from [facility]): Saline Lock Assessment/Plan Chief Complaint/Hosp Course 1. Anasarca. 2. Chronic kidney disease. 3. Anemia. 4. Thrombocytopenia. 5. Lower extremity edema with mild cellulitis. 6. Hypoalbuminemia 7. Morbid obesity. Problems: Assessment/Plan 1. Continue a/b Subjective 24 Hr Interval Summary Constitutional: no complaints Respiratory: no complaints Cardiovascular: no complaints Exam/Review of Systems Vital Signs Vitals Vital Signs Date Time Temp Pulse Resp B/P Pulse Ox O2 Delivery O2 Flow Rate FiO2 08/27/16 07:30 97.8 80 16 104/54 98 08/26/16 12:48 Room Air Intake and Output 08/26/16 08/26/16 08/27/16 15:00 23:00 07:00 Intake Total 72 ml Balance 72 ml Exam Constitutional: alert, oriented Psych: no complaints Respiratory: clear to auscultation Cardiovascular: regular rate and rhythm Results Result Diagram: 08/27/1620 08/27/16 0520 Results 24 hrs Laboratory Tests Test 08/27/16 05:20 White Blood Count 4.4 L Red Blood Count 2.26 L Hemoglobin 7.8 L Hematocrit 22.3 L Mean Corpuscular Volume 98.7 Mean Corpuscular Hemoglobin 34.5 H Mean Corpuscular Hemoglobin Concent 35.0 Red Cell Distribution Width 17.4 H Platelet Count 57 L Mean Platelet Volume 9.4 Neutrophils % 63.5 Lymphocytes % 24.8 Monocytes % 8.7 Eosinophils % 2.8 Basophils % 0.2 Nucleated Red Blood Cells % 0.0 Neutrophils # 2.8 Lymphocytes # 1.1 Monocytes # 0.4 Eosinophils # 0.1 Basophils # 0.0 Nucleated Red Blood Cells # 0.0 Sodium Level 124 L Potassium Level 3.9 Chloride Level 88 L Carbon Dioxide Level 27 Anion Gap 13 Blood Urea Nitrogen 20 Creatinine 1.15 Glucose Level 84 Calcium Level 8.3 L Total Bilirubin 6.2 H Direct Bilirubin 2.00 H Indirect Bilirubin 4.2 H Aspartate Amino Transf (AST/SGOT) 61 H Alanine Aminotransferase (ALT/SGPT) 36 Alkaline Phosphatase 153 H Total Protein 5.8 L Albumin 2.2 L Globulin 3.60 H Albumin/Globulin Ratio 0.61 Medications Medications Current Medications Folic Acid (Folic Acid) 1 mg DAILY PO Last administered on 08/27/16 12:17; Admin Dose 1 MG; Start 08/27/16 at 09:00 Prochlorperazine (Compazine) 5 mg BID PRN PO NAUSEA; Start 08/26/16 at 18:00 Thiamine HCl (Vitamin B1) 100 mg DAILY PO Last administered on 08/27/16 12:17 ; Admin Dose 100 MG; Start 08/27/16 at 09:00 Ondansetron HCl (Zofran Inj) 4 mg Q6H PRN IV NAUSEA AND/OR VOMITING; Start at 18:00 Acetaminophen (Tylenol Tab) 650 mg Q6H PRN PO PAIN LEVEL 1-3 OR FEVER Last administered on 08/27/16 13:50; Admin Dose 650 MG; Start 08/26/16 at 18:00 Acetaminophen/ Hydrocodone Bitart ([place] (5/325)) 1 tab Q6H PRN PO MODERATE PAIN LEVEL 4-6; Start 08/26/16 at 18:00 Morphine Sulfate (morphine) 2 mg Q4H PRN IV SEVERE PAIN LEVEL 7-10 Last administered on 08/27/16 11:25; Admin Dose 2 MG; Start 08/26/16 at 18:00 Docusate Sodium (Colace) 100 mg Q12H PRN PO CONSTIPATION; Start 08/26/16 at 18: 00 Magnesium Hydroxide (Milk Of Mag) 30 ml DAILY PRN PO CONSTIPATION; Start at 18:00 Bisacodyl (Dulcolax) 5 mg DAILY PRN PO CONSTIPATION; Start 08/26/16 at 18:00 Pantoprazole (Protonix Iv) 40 mg DAILY@06 IV Last administered on 08/27/16 06: 27; Admin Dose 40 MG; Start 08/27/16 at 06:00 Lactulose (Enulose) 20 gm TID PO Last administered on 08/27/16 12:17; Admin Dose 20 GM; Start 08/26/16 at 21:00 Levofloxacin 500 mg 500 mg DAILY@06 PO Last administered on 08/27/16 06:27; Admin Dose 500 MG; Start 08/27/16 at 06:00 Albumin Human (Albumin Human 25%) 50 ml @ 100 mls/hr DAILY IV Last administered on 08/27/16t 12:16; Admin Dose 100 MLS/HR; Start 08/27/16 at 11:00 ; Stop 08/29/16 at 09:29 STANISLAW PICKERING 31, 2017 15:06
[2016-08-27] MEDS ORDERED: LIDOCAINE 1% (MPF) 5 ML VIAL ONE (16:32)
--- NOTE | 2016-08-27 17:45 | RADRPT ---
PROCEDURE: US guided paracentesis CLINICAL INDICATION: Ascites TECHNIQUE: Multiple sonographic images were obtained through the patient's abdomen. A site in the patient's left lower abdomen was selected and marked. The area was prepped and draped in the usual sterile fashion. 1% lidocaine was utilized. A 19-gauge Yueh needle was advanced into the peritoneal space and the introducer was connected to a vacuum drainage bottle. A total of 9750 cc of clear ye llow fluid were drained at the end of the procedure. The patient tolerated the procedure well. COMPARISON: None FINDINGS: Ascites. RPTAT: AA IMPRESSION: Successful ultrasound-guided paracentesis. Physician Dodie Date Time Electronically viewed and signed by Physician Dodie on 08/27/2016 17:44 /
[2016-08-27] MEDS: HYDROCODONE/APAP (5/325) TAB PO PRN (21:41)
[2016-08-27] MEDS ORDERED: SOD CHLORIDE 0.9% 500 ML IV ONE (22:00)
[2016-08-27] MEDS ORDERED: ALBUMIN HUMAN 25% 100 ML IV ONE (22:00)
[2016-08-27] MEDS ORDERED: morphine 2 MG INJ IV ONE (22:00)
[2016-08-27] MEDS: SODIUM CHLORIDE 1 GM TAB PO SCH (22:23)
[2016-08-27 23:34] VITALS: BP 107/63; RESP 19
[2016-08-28] MEDS: ACETAMINOPHEN 325 MG TAB PO PRN ×2 (02:57→22:37)
[2016-08-28 04:11] VITALS: BP 97/55; PULSE 82; RESP 16
[2016-08-28 05:46] LABS: ADD SCAN DIFF NO
[2016-08-28] MEDS: LEVOFLOXACIN 500 MG TAB PO SCH (05:55)
[2016-08-28] MEDS: FUROSEMIDE 40 MG INJ IV SCH (05:56)
[2016-08-28] MEDS: HYDROCODONE/APAP (5/325) TAB PO PRN ×2 (05:56→14:51)
[2016-08-28] MEDS: PANTOPRAZOLE 40 MG INJ IV SCH (05:56)
[2016-08-28 06:04] LABS: ABNORMAL IP MESSAGE 1; BASOPHILS % 0.2 % (0.0-2.0); EOSINOPHILS % 0.2 % (0.0-7.0); HEMATOCRIT 21.3 % (42.0-52.0); LYMPHOCYTES # 0.4 10^3/ul (0.8-2.9); LYMPHOCYTES % 9.8 % (15.0-51.0); MEAN CORPUSCULAR HEMOGLOBIN 34.3 pg (29.0-33.0); MEAN CORPUSCULAR HGB CONC 34.3 g/dl (32.0-37.0); MEAN PLATELET VOLUME 9.2 fl (7.4-10.4); MONOCYTE # 0.2 10^3/ul (0.3-0.9); MONOCYTES % 4.9 % (0.0-11.0); NEUTROPHIL # 3.6 10^3/ul (1.6-7.5); NEUTROPHILS % 84.4 % (39.0-77.0); RED BLOOD COUNT 2.13 10^6/ul (4.70-6.10); RED CELL DISTRIBUTION WIDTH 17.3 % (11.5-14.5); WHITE BLOOD COUNT 4.3 10^3/ul (4.8-10.8)
[2016-08-28 06:10] LABS: POTASSIUM 3.6 mmol/L (3.5-5.1)
[2016-08-28 06:13] LABS: CREATININE 1.27 mg/dl (0.61-1.24)
[2016-08-28 06:14] LABS: CALCIUM 8.1 mg/dl (8.4-10.2)
[2016-08-28 06:19] LABS: HEMOGLOBIN 7.3 g/dl (14.0-18.0); PLATELET COUNT 39 10^3/UL (140-415)
[2016-08-28 06:53] VITALS: BP 110/53; PULSE 75; RESP 16
[2016-08-28 07:25] VITALS: BP 107/54; RESP 18
[2016-08-28] MEDS ORDERED: LIDOCAINE 1% (MDV) 20 ML INJ SC ONE (08:00)
[2016-08-28] MEDS: THIAMINE 100 MG TAB PO SCH (09:32)
[2016-08-28] MEDS: FOLIC ACID 1 MG TAB PO SCH (09:32)
[2016-08-28] MEDS: LACTULOSE 30ML CUP PO SCH ×3 (09:32→21:08)
[2016-08-28] MEDS: SODIUM CHLORIDE 1 GM TAB PO SCH ×3 (09:35→22:38)
[2016-08-28] MEDS: ALBUMIN HUMAN 25% 50 ML IV SCH (09:35)
--- NOTE | 2016-08-28 12:11 | RADRPT ---
PROCEDURE: XR Chest. CLINICAL INDICATION: PICC line placement TECHNIQUE: Single frontal chest x-ray. COMPARISON: 08/26/2016 FINDINGS: Left-sided PICC line tip is in the SVC. There is diffuse opacification of the left hemithorax, unch anged from the prior x-ray. The right lung is clear. Cardiomediastinal silhouette is stable in chandan earance. The osseous structures are unremarkable. IMPRESSION: 1. Left-sided PICC line in good position. 2. Stable diffuse opacification of the left hemithorax, suggestive of large pleural effusion and/or diffuse left lung atelectasis / consolidation. RPTAT: QQ .Ghanshyam Soares MD, MD Date Time Electronically viewed and signed by .Ghanshyam Soares MD, on 08/28/2016 12:11 .R/
--- NOTE | 2016-08-28 12:11 | RADRPT ---
PROCEDURE: Ultrasound proximal upper extremity for PICC placement CLINICAL INDICATION: PICC placement TECHNIQUE: Sonographic evaluation of the proximal left upper extremity vessels was performed utilizi ng a high-frequency linear transducer. COMPARISON: None available FINDINGS: Limited evaluation of the proximal upper extremity for vascular access for PICC placement. Grossly, no abnormality is seen. IMPRESSION: 1. Unremarkable limited proximal left upper extremity ultrasound for PICC placement. RPTAT: QQ .Ghanshyam Soares MD, MD Date Time Electronically viewed and signed by .Ghanshyam Soares MD, MD on 08/28/2016 12:11 .R/
[2016-08-28] MEDS: IMIPENEM-CILAST 500 MG/NS 100 ML IVPB SCH ×2 (13:01→18:00)
[2016-08-28] MEDS: morphine 2 MG INJ IV PRN (13:03)
[2016-08-28] MEDS ORDERED: DIPHENHYDRAMINE 25 MG CAP PO ONE (13:30)
--- NOTE | 2016-08-28 14:52 | PN ---
Date/Time of Note Date/Time of Note DATE: 08/28/16 TIME: 14:50 Assessment/Plan VTE Prophylaxis VTE Prophylaxis Intervention: ambulation Lines/Catheters IV Catheter Type (from [facility]): Saline Lock Central line still needed: Yes Assessment/Plan Chief Complaint/Hosp Course 1. Anasarca. 2. Chronic kidney disease. 3. Anemia. 4. Thrombocytopenia. 5. Lower extremity edema with mild cellulitis. 6. Hypoalbuminemia 7. Morbid obesity. Problems: Assessment/Plan 1. Hospice care at home Subjective 24 Hr Interval Summary Constitutional: no complaints Cardiovascular: no complaints Gastrointestinal: decreased appetite Genitourinary: no complaints Exam/Review of Systems Vital Signs Vitals Vital Signs Date Time Temp Pulse Resp B/P Pulse Ox O2 Delivery O2 Flow Rate FiO2 08/28/16 07:25 98.0 77 18 107/54 99 08/26/16 12:48 Room Air Intake and Output 08/27/16 08/27/16 08/28/16 15:00 23:00 07:00 Intake Total 50 ml 1199 ml 960 ml Balance 50 ml 1199 ml 960 ml Exam Constitutional: alert, oriented Psych: no complaints Head: normocephalic Eyes: nl conjunctiva ENMT: nl external ears & nose Respiratory: diminished breath sounds Cardiovascular: regular rate and rhythm Gastrointestinal: distended Results Result Diagram: 08/28/16 0530 08/28/16 0530 Results 24 hrs Laboratory Tests Test 08/28/16 05:30 White Blood Count 4.3 L Red Blood Count 2.13 L Hemoglobin 7.3 L Hematocrit 21.3 L Mean Corpuscular Volume 100.0 Mean Corpuscular Hemoglobin 34.3 H Mean Corpuscular Hemoglobin Concent 34.3 Red Cell Distribution Width 17.3 H Platelet Count 39 #L Mean Platelet Volume 9.2 Neutrophils % 84.4 H Lymphocytes % 9.8 L Monocytes % 4.9 Eosinophils % 0.2 Basophils % 0.2 Nucleated Red Blood Cells % 0.0 Neutrophils # 3.6 Lymphocytes # 0.4 L Monocytes # 0.2 L Eosinophils # 0.0 Basophils # 0.0 Nucleated Red Blood Cells # 0.0 Sodium Level 124 L Potassium Level 3.6 Chloride Level 89 L Carbon Dioxide Level 28 Anion Gap 11 Blood Urea Nitrogen 19 Creatinine 1.27 H Glucose Level 76 Calcium Level 8.1 L Medications Medications Current Medications Folic Acid (Folic Acid) 1 mg DAILY PO Last administered on 08/28/16 09:32; Admin Dose 1 MG; Start 08/27/16 at 09:00 Prochlorperazine (Compazine) 5 mg BID PRN PO NAUSEA; Start 08/26/16 at 18:00 Thiamine HCl (Vitamin B1) 100 mg DAILY PO Last administered on 08/28/16 09:32; Admin Dose 100 MG; Start 08/27/16 at 09:00 Ondansetron HCl (Zofran Inj) 4 mg Q6H PRN IV NAUSEA AND/OR VOMITING Last administered on 08/28/16 00:49; Admin Dose 4 MG; Start 08/26/16 at 18:00 Acetaminophen (Tylenol Tab) 650 mg Q6H PRN PO PAIN LEVEL 1-3 OR FEVER Last administered on 08/28/16 02:57; Admin Dose 650 MG; Start 08/26/16 at 18:00 Acetaminophen/ Hydrocodone Bitart ([place] (5/325)) 1 tab Q6H PRN PO MODERATE PAIN LEVEL 4-6 Last administered on 08/28/16 05:56; Admin Dose 1 TAB; Start at 18:00 Morphine Sulfate (morphine) 2 mg Q4H PRN IV SEVERE PAIN LEVEL 7-10 Last administered on 08/28/16 13:03; Admin Dose 2 MG; Start 08/26/16 at 18:00 Docusate Sodium (Colace) 100 mg Q12H PRN PO CONSTIPATION; Start 08/26/16 at 18: 00 Magnesium Hydroxide (Milk Of Mag) 30 ml DAILY PRN PO CONSTIPATION; Start at 18:00 Bisacodyl (Dulcolax) 5 mg DAILY PRN PO CONSTIPATION; Start 08/26/16 at 18:00 Pantoprazole (Protonix Iv) 40 mg DAILY@06 IV Last administered on 08/28/16 05: 56; Admin Dose 40 MG; Start 08/27/16 at 06:00 Lactulose (Enulose) 20 gm TID PO Last administered on 08/28/16 13:00; Admin Dose 20 GM; Start 08/26/16 at 21:00 Levofloxacin 500 mg 500 mg DAILY@06 PO Last administered on 08/28/16 05:55; Admin Dose 500 MG; Start 08/27/16 at 06:00 Albumin Human (Albumin Human 25%) 50 ml @ 100 mls/hr DAILY IV Last administered on 08/28/16 09:35; Admin Dose 100 MLS/HR; Start 08/27/16 at 11:00; Stop 08/29/16 at 09:29 Sodium Chloride (Nacl) 2 gm TID PO Last administered on 08/28/16 13:01; Admin Dose 2 GM; Start 08/27/16 at 21:00 Furosemide 40 mg 40 mg DAILY@06 IV ; Start 08/28/16 at 06:00 Imipenem/ Cilastatin Sodium (Primaxin 500 Mg/ 100 ml (Pmx)) 100 ml @ 100 mls/ hr Q6 IVPB Last administered on 08/28/16 13:01; Admin Dose 100 MLS/HR; Start at 12:00 IV Flush (NS 10 ml) 10 ml PRN PRN IV FLUSH LINE; Start 08/28/16 at 13:30 STANISLAW PICKERING Aug 28, 2016 14:52
[2016-08-28] MEDS ORDERED: SOD CHLORIDE 0.9% 250 ML IV ONE ×2 (17:00→21:00)
[2016-08-28 18:30] VITALS: PULSE 99
[2016-08-28 20:00] VITALS: BP 83/45; RESP 19
[2016-08-28 20:22] VITALS: PULSE 101
[2016-08-28] MEDS ORDERED: ALBUMIN HUMAN 25% 100 ML IV ONE (21:00)
[2016-08-29] VITALS (11 sets, daily range): BP systolic 81–90; BP diastolic 43–51; PULSE 89–98; RESP 16–19
[2016-08-29] MEDS ORDERED: TOBRAMYCIN 100 MG in SOD CHLORIDE 0.9% 50 ML IVPB ONE (01:00)
[2016-08-29] MEDS ORDERED: GENTAMICIN 100 MG/50 ML NS IVPB SCH (03:00)
[2016-08-29] MEDS: IMIPENEM-CILAST 500 MG/NS 100 ML IVPB SCH ×5 (03:18→23:37)
[2016-08-29] MEDS: ACETAMINOPHEN 325 MG TAB PO PRN ×2 (04:49→21:34)
[2016-08-29] MEDS: FUROSEMIDE 40 MG INJ IV SCH (05:58)
[2016-08-29] MEDS: LEVOFLOXACIN 500 MG TAB PO SCH (06:31)
[2016-08-29] MEDS: PANTOPRAZOLE 40 MG INJ IV SCH (06:31)
[2016-08-29 07:39] LABS: ADD SCAN DIFF NO
[2016-08-29 07:50] LABS: ABNORMAL IP MESSAGE 1; HEMATOCRIT 23.2 % (42.0-52.0); MEAN CORPUSCULAR HEMOGLOBIN 34.8 pg (29.0-33.0); MEAN CORPUSCULAR HGB CONC 34.5 g/dl (32.0-37.0); MEAN CORPUSCULAR VOLUME 100.9 fl (82.0-101.0); PLATELET COUNT 37 10^3/UL (140-415); RED CELL DISTRIBUTION WIDTH 18.3 % (11.5-14.5); WHITE BLOOD COUNT 4.5 10^3/ul (4.8-10.8)
[2016-08-29 08:21] LABS: ALBUMIN 1.9 g/dl (3.3-4.9)
[2016-08-29 08:22] LABS: POTASSIUM 3.5 mmol/L (3.5-5.1)
[2016-08-29 08:24] LABS: BILIRUBIN,DIRECT 2.8 mg/dl (0.00-0.20); BILIRUBIN,INDIRECT 2.3 mg/dl (0-1.1); BILIRUBIN,TOTAL 5.1 mg/dl (0.2-1.3); CREATININE 1.97 mg/dl (0.61-1.24)
[2016-08-29 08:25] LABS: ALBUMIN/GLOBULIN RATIO 0.73; CALCIUM 7.8 mg/dl (8.4-10.2); TOTAL PROTEIN 4.5 g/dl (6.1-8.1)
[2016-08-29] MEDS ORDERED: DEXTROSE 50% 50 ML SYRINGE ONE (08:50)
[2016-08-29 09:04] LABS: LYMPHOCYTES # 0.7 10^3/ul (0.8-2.9); MONOCYTE # 0.1 10^3/ul (0.3-0.9)
[2016-08-29] MEDS: ALBUMIN HUMAN 25% 50 ML IV SCH (09:17)
[2016-08-29] MEDS: LACTULOSE 30ML CUP PO SCH ×3 (09:17→20:22)
[2016-08-29] MEDS: THIAMINE 100 MG TAB PO SCH (09:18)
[2016-08-29] MEDS: FOLIC ACID 1 MG TAB PO SCH (09:18)
[2016-08-29] MEDS: SODIUM CHLORIDE 1 GM TAB PO SCH ×3 (09:18→20:18)
[2016-08-29] MEDS ORDERED: DEXTROSE 50% 50 ML SYRINGE IV ONE (09:30)
[2016-08-29] MEDS: ALBUMIN HUMAN 25% 100 ML IV SCH (09:46)
--- NOTE | 2016-08-29 17:00 | PN ---
Date/Time of Note Date/Time of Note DATE: 08/29/16 TIME: 16:56 Assessment/Plan VTE Prophylaxis VTE Prophylaxis Intervention: other Lines/Catheters IV Catheter Type (from Nrs): PICC Line Central line still needed: Yes Urinary Cath still in place: No Assessment/Plan Chief Complaint/Hosp Course IMPRESSION: The patient has: 1. Anasarca. 2. Chronic kidney disease. 3. Anemia. 4. Thrombocytopenia. 5. Lower extremity edema with mild cellulitis. 6. Hypoalbuminemia. 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) Respiratory: no complaints Gastrointestinal: other (ascites+), pain (+) Exam/Review of Systems Vital Signs Vitals Vital Signs Date Time Temp Pulse Resp B/P Pulse Ox O2 Delivery O2 Flow Rate FiO2 08/29/16 16:19 97.7 93 18 88/43 99 08/29/16 15:39 3.0 08/29/16 04:00 Nasal Cannula Intake and Output 08/28/16 08/28/16 08/29/16 15:00 23:00 07:00 Intake Total 150 ml 800 ml 120 ml Balance 150 ml 800 ml 120 ml Exam Constitutional: other (anasarca+) Results Result Diagram: 08/29/16 0711 08/29/16 0711 Results 24 hrs Laboratory Tests Test 08/28/16 17:20 08/29/16 07:11 08/29/16 08:36 08/29/16 12:50 Ammonia 28 White Blood Count 4.5 L Red Blood Count 2.30 L Hemoglobin 8.0 L Hematocrit 23.2 L Mean Corpuscular Volume 100.9 Mean Corpuscular Hemoglobin 34.8 H Mean Corpuscular Hemoglobin Concent 34.5 Red Cell Distribution Width 18.3 H Platelet Count 37 L Mean Platelet Volume 10.0 Neutrophils % 45.0 Band Neutrophils % 37.0 H Lymphocytes % 15.0 Monocytes % 3.0 Eosinophils % Nucleated Red Blood Cells % 2.0 H Neutrophils # 2.0 Lymphocytes # 0.7 L Monocytes # 0.1 L Eosinophils # Sodium Level 126 L Potassium Level 3.5 Chloride Level 90 L Carbon Dioxide Level 20 L Anion Gap 20 #H Blood Urea Nitrogen 21 H Creatinine 1.97 H Glucose Level 31 #*L Calcium Level 7.8 L Total Bilirubin 5.1 H Direct Bilirubin 2.80 H Indirect Bilirubin 2.3 H Aspartate Amino Transf (AST/SGOT) 55 H Alanine Aminotransferase (ALT/SGPT) 34 Alkaline Phosphatase 72 Total Protein 4.5 L Albumin 1.9 L Globulin 2.60 Albumin/Globulin Ratio 0.73 Bedside Glucose 31 *L 103 Medications Medications Current Medications Folic Acid (Folic Acid) 1 mg DAILY PO Last administered on 08/29/16 09:18; Admin Dose 1 MG; Start 08/27/16 at 09:00 Prochlorperazine (Compazine) 5 mg BID PRN PO NAUSEA; Start 08/26/16 at 18:00 Thiamine HCl (Vitamin B1) 100 mg DAILY PO Last administered on 08/29/16 09:18; Admin Dose 100 MG; Start 08/27/16 at 09:00 Ondansetron HCl (Zofran Inj) 4 mg Q6H PRN IV NAUSEA AND/OR VOMITING Last administered on 08/28/16 00:49; Admin Dose 4 MG; Start 08/26/16 at 18:00 Acetaminophen (Tylenol Tab) 650 mg Q6H PRN PO PAIN LEVEL 1-3 OR FEVER Last administered on 08/29/16 04:49; Admin Dose 650 MG; Start 08/26/16 at 18:00 Acetaminophen/ Hydrocodone Bitart ([place] (5/325)) 1 tab Q6H PRN PO MODERATE PAIN LEVEL 4-6 Last administered on 08/28/16 14:51; Admin Dose 1 TAB; Start at 18:00 Morphine Sulfate (morphine) 2 mg Q4H PRN IV SEVERE PAIN LEVEL 7-10 Last administered on 08/28/16 13:03; Admin Dose 2 MG; Start 08/26/16 at 18:00 Docusate Sodium (Colace) 100 mg Q12H PRN PO CONSTIPATION; Start 08/26/16 at 18: 00 Magnesium Hydroxide (Milk Of Mag) 30 ml DAILY PRN PO CONSTIPATION; Start at 18:00 Bisacodyl (Dulcolax) 5 mg DAILY PRN PO CONSTIPATION; Start 08/26/16 at 18:00 Pantoprazole (Protonix Iv) 40 mg DAILY@06 IV Last administered on 08/29/16 06: 31; Admin Dose 40 MG; Start 08/27/16 at 06:00 Lactulose (Enulose) 20 gm TID PO Last administered on 08/29/16 12:44; Admin Dose 20 GM; Start 08/26/16 at 21:00 Levofloxacin (Levaquin) 500 mg DAILY@06 PO Last administered on 08/29/16 06:31 ; Admin Dose 500 MG; Start 08/27/16 at 06:00 Sodium Chloride (Nacl) 2 gm TID PO Last administered on 08/29/16 12:44; Admin Dose 2 GM; Start 08/27/16 at 21:00 Furosemide 40 mg 40 mg DAILY@06 IV ; Start 08/28/16 at 06:00 Imipenem/ Cilastatin Sodium (Primaxin 500 Mg/ 100 ml (Pmx)) 100 ml @ 100 mls/ hr Q6 IVPB Last administered on 08/29/16 12:44; Admin Dose 100 MLS/HR; Start at 12:00 IV Flush 10 ml 10 ml PRN PRN IV FLUSH LINE; Start 08/28/16 at 13:30 Albumin Human (Albumin Human 25%) 100 ml @ 100 mls/hr DAILY IV Last administered on 08/29/16 09:46; Admin Dose 100 MLS/HR; Start 08/29/16 at 09:00; Stop 08/30/16 at 09:59 SHARIF KAPLAN MD Aug 29, 2016 16:59
[2016-08-30] VITALS (10 sets, daily range): BP systolic 80–89; BP diastolic 40–50; PULSE 82–106; RESP 18
[2016-08-30] MEDS: IMIPENEM-CILAST 500 MG/NS 100 ML IVPB SCH ×2 (05:15→12:00)
[2016-08-30] MEDS: PANTOPRAZOLE 40 MG INJ IV SCH (05:15)
[2016-08-30] MEDS: LEVOFLOXACIN 500 MG TAB PO SCH (05:15)
[2016-08-30] MEDS: FUROSEMIDE 40 MG INJ IV SCH (05:16)
[2016-08-30] MEDS: THIAMINE 100 MG TAB PO SCH (11:23)
[2016-08-30] MEDS: LACTULOSE 30ML CUP PO SCH ×2 (11:23→13:00)
[2016-08-30] MEDS: FOLIC ACID 1 MG TAB PO SCH (11:23)
[2016-08-30] MEDS: SODIUM CHLORIDE 1 GM TAB PO SCH ×2 (11:23→13:00)
[2016-08-30] MEDS: ALBUMIN HUMAN 25% 100 ML IV SCH (11:25)
[2016-08-30] MEDS ORDERED: IMIPENEM-CILAST 500 MG/NS 100 ML IVPB SCH (14:00)
[2016-08-30] MEDS: ACETAMINOPHEN 325 MG TAB PO PRN (15:59)
--- NOTE | 2016-08-30 18:08 | PDOCDIS ---
Discharge Instructions CONDITION Patient Condition: Stable HOME CARE INSTRUCTIONS: Special Diet: 2gNa ACTIVITY: Activity Restrictions: Slowly Increase Activity FOLLOW UP/APPOINTMENTS Appointments ok home w hospice service SHARIF KAPLAN MD Aug 30, 2016 18:08
[2016-08-30] MEDS ORDERED: MACBID PO (18:09)
--- NOTE | 2016-08-30 18:49 | PN ---
Date/Time of Note Date/Time of Note DATE: 08/30/16 TIME: 18:48 Assessment/Plan VTE Prophylaxis VTE Prophylaxis Intervention: other Lines/Catheters IV Catheter Type (from Nrsg): PICC Line Central line still needed: Yes Urinary Cath still in place: No Reason Cath still needed: other (indicate) Assessment/Plan Chief Complaint/Hosp Course IMPRESSION: The patient has: 1. Anasarca.better 2. Chronic kidney disease. 3. Anemia. 4. Thrombocytopenia. 5. Lower extremity edema with mild cellulitis. 6. Hypoalbuminemia. 7 hospice pt plan pain meds home w hospice Problems: Subjective 24 Hr Interval Summary Subjective hx not possible: other (feeling better) Exam/Review of Systems Vital Signs Vitals Vital Signs Date Time Temp Pulse Resp B/P Pulse Ox O2 Delivery O2 Flow Rate FiO2 08/30/16 16:19 82 08/30/16 16:11 98.4 18 87/47 100 08/29/16 20:00 3.0 08/29/16 04:00 Nasal Cannula Intake and Output 08/29/16 08/29/16 08/30/16 15:00 23:00 07:00 Intake Total 200 ml 1220 ml 120 ml Balance 200 ml 1220 ml 120 ml Exam Respiratory: clear to auscultation Cardiovascular: regular rate and rhythm Gastrointestinal: ascites (+), soft Results Result Diagram: 08/29/16 0711 08/29/16 0711 Medications Medications Current Medications Folic Acid (Folic Acid) 1 mg DAILY PO Last administered on 08/30/16 11:23; Admin Dose 1 MG; Start 08/27/16 at 09:00 Prochlorperazine (Compazine) 5 mg BID PRN PO NAUSEA; Start 08/26/16 at 18:00 Thiamine HCl (Vitamin B1) 100 mg DAILY PO Last administered on 08/30/16 11:23; Admin Dose 100 MG; Start 08/27/16 at 09:00 Ondansetron HCl (Zofran Inj) 4 mg Q6H PRN IV NAUSEA AND/OR VOMITING Last administered on 08/28/16 00:49; Admin Dose 4 MG; Start 08/26/16 at 18:00 Acetaminophen (Tylenol Tab) 650 mg Q6H PRN PO PAIN LEVEL 1-3 OR FEVER Last administered on 08/30/16 15:59; Admin Dose 650 MG; Start 08/26/16 at 18:00 Acetaminophen/ Hydrocodone Bitart ([place] (5/325)) 1 tab Q6H PRN PO MODERATE PAIN LEVEL 4-6 Last administered on 08/28/16 14:51; Admin Dose 1 TAB; Start at 18:00 Morphine Sulfate (morphine) 2 mg Q4H PRN IV SEVERE PAIN LEVEL 7-10 Last administered on 08/28/16 13:03; Admin Dose 2 MG; Start 08/26/16 at 18:00 Docusate Sodium (Colace) 100 mg Q12H PRN PO CONSTIPATION; Start 08/26/16 at 18: 00 Magnesium Hydroxide (Milk Of Mag) 30 ml DAILY PRN PO CONSTIPATION; Start at 18:00 Bisacodyl (Dulcolax) 5 mg DAILY PRN PO CONSTIPATION; Start 08/26/16 at 18:00 Pantoprazole (Protonix Iv) 40 mg DAILY@06 IV Last administered on 08/30/16 05: 15; Admin Dose 40 MG; Start 08/27/16 at 06:00 Lactulose (Enulose) 20 gm TID PO Last administered on 08/30/16 11:23; Admin Dose 20 GM; Start 08/26/16 at 21:00 Sodium Chloride (Nacl) 2 gm TID PO Last administered on 08/30/16 11:23; Admin Dose 2 GM; Start 08/27/16 at 21:00 Furosemide (Lasix) 40 mg DAILY@06 IV ; Start 08/28/16 at 06:00 IV Flush 10 ml 10 ml PRN PRN IV FLUSH LINE; Start 08/28/16 at 13:30 Imipenem/ Cilastatin Sodium (Primaxin 500 Mg/ 100 ml (Pmx)) 100 ml @ 100 mls/ hr Q8 IVPB Last administered on 08/30/16 15:57; Admin Dose 100 MLS/HR; Start at 14:00 Levofloxacin (Levaquin) 250 mg DAILY@06 PO ; Start 08/31/16 at 06:00 Nitrofurantoin Macrocrystals (Macrobid) 100 mg DAILY PO ; Start 08/31/16 at 09:00 SHARIF KAPLAN MD Aug 30, 2016 18:49
[2016-08-31] MEDS ORDERED: LEVOFLOXACIN 250 MG TAB PO SCH (06:00)
[2016-08-31] MEDS ORDERED: NITROFURANTOIN (SR) 100 MG CAP PO SCH (09:00)
== END 2016-08-30 20:44 | disposition home or self-care (01) | DRG 603 ==
LOC: E/R 10:19 → PP2 11:34 → MS4 08-28 17:05
PROVIDERS: ADMIT Internal Medicine Nephrology; ATTEND Internal Medicine Nephrology
PROC: 0W9G3ZZ Drainage of Peritoneal Cavity, Percutaneous Approach (ICD-10-PCS; principal; 2016-08-27)
PROC: 02HV33Z Insertion of Infusion Device into Superior Vena Cava, Percutaneous Approach (ICD-10-PCS; 2016-08-28)
DX: L03.116 Cellulitis of left lower limb (principal); R18.8 Other ascites; D69.6 Thrombocytopenia, unspecified; K74.60 Unspecified cirrhosis of liver; Z68.41 Body mass index [BMI] 40.0-44.9, adult; E88.09 Other disorders of plasma-protein metabolism, not elsewhere classified; L03.115 Cellulitis of right lower limb; K72.90 Hepatic failure, unspecified without coma; Z66 Do not resuscitate; I12.9 Hypertensive chronic kidney disease with stage 1 through stage 4 chronic kidney disease, or unspecified chronic kidney disease; N18.9 Chronic kidney disease, unspecified; R60.1 Generalized edema; D64.9 Anemia, unspecified; E66.01 Morbid (severe) obesity due to excess calories; Z88.0 Allergy status to penicillin
CPT/HCPCS: 36415; 36430; 36569; 71010; 76937; 80048; 80053; 81001; 81003; 82140; 82962; 83605; 83690; 85025; 85610; 86850; 86900; 86901; 86920; 87040; 87086; 93005; 96365; 96375; C9113; J0743; J1200; J1580; J1940; J2270; J2405; J3260; J3370; J7040; P9016; P9047; P9059